=== PATIENT | female | born 2000 | race Hispanic/Latino ===

== ENCOUNTER 2024-09-10 00:12 | Observation (INO) | payer SELFPAY ==
[~2024-09-10] VITALS: Ht 149.9 cm; Wt 110.2 kg
[2024-09-10 00:41] LABS: APPEARANCE,URINE CLOUDY (CLEAR); BILIRUBIN,URINE NEGATIVE (NEGATIVE); COLOR,URINE YELLOW (YELLOW); GLUCOSE, URINE (UA) NEGATIVE (NEGATIVE); KETONES,URINE NEGATIVE (NEGATIVE); LEUKOCYTE ESTERASE ,URINE 500 Leu/uL (NEGATIVE); NITRATE,URINE NEGATIVE (NEGATIVE); OCCULT BLOOD,URINE MODERATE (NEGATIVE); PROTEIN,URINE 20 mg/dL (NEGATIVE)
[2024-09-10 00:42] LABS: ADD UA MICROSCOPIC YES
[2024-09-10 00:44] LABS: BACTERIA,URINE RARE /HPF (None Seen); MUCUS,URINE FEW LPF (None Seen); SQUAMOUS EPITHELIAL CELL,UR MANY /HPF (0-2); UNCLASSIFIED CRYSTAL 2 /HPF (None Seen); WBC,URINE 26-50 /HPF (0-1)
[2024-09-10 00:46] LABS: HCG,QUALITATIVE URINE NEGATIVE (NEGATIVE)
[2024-09-10 00:53] LABS: BASOPHILS # (AUTO) 0.04 K/uL (0.00-0.20); BASOPHILS % (AUTO) 0.3 % (0.0-5.0); EOSINOPHILS # (AUTO) 0.08 K/uL (0.00-0.70); EOSINOPHILS % (AUTO) 0.5 % (0.0-8.0); HEMATOCRIT 38.9 % (36-48); IMMATURE GRANULOCYTE ABSOLUTE 0.06 K/uL (0-1); LYMPHOCYTES # (AUTO) 1.9 K/uL (1.0-4.8); LYMPHOCYTES % (AUTO) 12.6 % (21.0-51.0); MEAN CORPUSCULAR HEMOGLOBIN 30.4 pg (27.0-33.0); MEAN CORPUSCULAR HGB CONC 33.4 g/dL (32.0-36.0); MEAN CORPUSCULAR VOLUME 91.1 fL (79-99); MONOCYTES # (AUTO) 0.5 K/uL (0.1-1.0); MONOCYTES % (AUTO) 3.5 % (3.0-13.0); NEUTROPHILS # (AUTO) 12.3 K/uL (1.8-7.7); NEUTROPHILS % (AUTO) 82.7 % (40.0-77.0); PLATELET COUNT (AUTO) 273 K/uL (130-400); RED BLOOD CELL COUNT(AUTO) 4.27 MIL/uL (4.00-5.50); RED CELL DISTRIBUTION WIDTH 12.6 % (11.0-15.5); WHITE BLOOD COUNT (AUTO) 14.9 K/uL (4.8-10.8)
[2024-09-10 01:07] LABS: CREATININE 0.6 mg/dL (0.5-1.0); POTASSIUM 3.6 mmol/L (3.5-5.1)
[2024-09-10 01:12] LABS: ALBUMIN 3.6 g/dL (3.5-5.0); BILIRUBIN,DIRECT 0.1 mg/dL (0.0-0.3); BILIRUBIN,TOTAL 0.4 mg/dL (0.2-1.0); TOTAL PROTEIN, SERUM 7.7 g/dL (6.0-8.3)
[2024-09-10] MEDS: morPHINE 4 MG SYG IVP ONE (01:38)
[2024-09-10] MEDS: 0.9%NACL 1000ML 1,000 ML IV ONE (01:38)
[2024-09-10] MEDS: ondanSETRON 4MG INJ IVP ONE (01:38)
[2024-09-10] MEDS: PANTOPrazole 40 MG/VIAL IVP ONE (01:38)
--- NOTE | 2024-09-10 02:16 | HMCIMG ---
EXAM: US Abdomen, Right Upper Quadrant. CLINICAL HISTORY: Epigastric and upper abdominal pain. TECHNIQUE: Right upper quadrant sonography performed with image documentation. COMPARISON: None provided. FINDINGS: The liver measures 15 cm craniocaudally. Mild fatty liver. Hepatopetal flow within the main portal vein with a peak systolic velocity of 17 cm/s. There are multiple mobile gallstones. Mildly thickened gallbladder wall measures up to 3 mm. The CBD is within normal limits and measures up to 3 mm in diameter. The visualized pancreas is within normal limits. The right kidney measures 10.5 x 5.4 0.8 cm and it is grossly unremarkable. Limited evaluation due to the patient's body habitus. IMPRESSION: Cholelithiasis with questionable acute cholecystitis. Mild fatty liver. /Tian
[2024-09-10] MEDS: cefTRIAXone 1G VIAL IVPB ONE (02:28)
--- NOTE | 2024-09-10 02:34 | ERN ---
ED Note History of Present Illness Stated Complaint: ABDOMINAL PAIN Chief Complaint: Abdominal Pain Time Seen by MD: 00:16 Time Seen by Midlevel: 00:16 Dictation: The patient is a 24-year-old female with no significant past medical history who presents to the emergency department with complaints of a epigastric abdominal pain that radiates to the right and left lower quadrant and radiates to the back onset on and off for two weeks but current episode started last night. Patient reports nausea but no vomiting. Denies any diarrhea or constipation. Denies any fevers. Allergies: Coded Allergies: No Known Drug Allergies (Unverified Allergy, Unknown, 09/10/24) Past Medical History Past Medical History: No Pertinent History Surgical History: None RN Note Reviewed/Agreed w/PFSH: Yes Review of System Dictation Constitutional: Negative for fever,chills, and weight loss Eyes: Negative for injury, pain,redness, and discharge ENT: Negative for injury,pain or swelling Cardiovascular: Negative for chest pain, palpitations, and edema Respiratory: Negative for shortness of breath, cough, and wheezing, Abdomen/GI: Negative for vomiting, diarrhea, and constipation positive for abdominal pain, nausea Back: Negative for injury and pain : Negative for injury, bleeding and discharge MS/Extremity: Negative for injury and deformity Skin: Negative for rash, and discoloration Neuro: Negative for headache, weakness, numbness, tingling, and seizure Psych: Negative for suicide ideation, homicidal ideation, and hallucinations Initial Vital Sign VS Vital Signs Date Time Temp Pulse Resp B/P (MAP) Pulse Ox O2 Delivery O2 Flow Rate FiO2 09/10/24 00:20 97.3 71 18 119/84 96 Room Air 0 09/10/24 01:00 21 Physical Exam Dictation Vital Signs reviewed General Appearance: Alert, oriented x 3, no acute distress, well developed, nourished. Head and Face: non-traumatic. Eyes: PERRL, pink conjunctivas, eyelid no trauma, anterior chamber with arcus se nilis. Ears: Pinnas intact and no signs of trauma or erythema ear canals clear and no discharge TM no erythema Nose: No discharge, no bleeding. Oropharynx: Mouth normal, tongue pink. pharynx clear,no erythema, tonsils no exudates, no abscesses noted, mucous membrane moist Neck: Supple, non-tender, no thyromegaly, no masses, no JVD, no bruits Breast:Deferred Chest:No tenderness, no crepitus, no paradoxical movement, no retractions Lungs:Clear, well-ventilated, symmetric, no rales, no wheezing, no rhonchi, no stridor, good breath sounds bilaterally Heart: Regular rate, regular rhythm, no murmur, no gallops Vascular: no peripheral edema, Abdomen: Soft, positive bowel sounds, nondistended, no guarding, Epigastric, right upper quadrant tenderness, no rebound, no masses no hepatomegaly, no splenomegaly, Dietirch's sign, no hernias. Rectal: Deferred Genital: Deferred Neurological: Normal speech, motor function intact, sensory function intact Musculoskeletal: Neck nontender, full range of motion, back nontender, full range of motion, Extremities: nontender, full range of motion Skin: Color pink, dry, no turgor, no rash, no lacerations, no abrasions, no contusions. Lymphatic: Deferred Results (Laboratory/Radiology) Laboratory/Radiology Laboratory Tests Test 09/10/24 00:35 09/10/24 00:46 Urine Color YELLOW (YELLOW) Urine Appearance CLOUDY (CLEAR) H Urine pH 6.0 (5.0-8.0) Urine Specific [place] 1.031 (1.001-1.031) Urine Protein 20 mg/dL (NEGATIVE) H Urine Glucose (UA) NEGATIVE mg/dL (NEGATIVE) Urine Ketones NEGATIVE mg/dL (NEGATIVE) Urine Occult Blood MODERATE (NEGATIVE) H Urine Nitrate NEGATIVE (NEGATIVE) Urine Bilirubin NEGATIVE mg/dL (NEGATIVE) Urine Urobilinogen 2.0 mg/dL (0.2-1.0) H Urine Leukocyte Esterase 500 [place]ira/uL (NEGATIVE) H Urine RBC 11-25 /HPF (0-1) H Urine WBC 26-50 /HPF (0-1) H Urine Squamous Epithelial Cells MANY /HPF (0-2) Urine Other Crystals (Auto) 2 /HPF (None Seen) Urine Bacteria RARE /HPF (None Seen) Urine HCG, Qualitative NEGATIVE (NEGATIVE) White Blood Count 14.9 K/uL (4.8-10.8) H Red Blood Count 4.27 MIL/uL (4.00-5.50) Hemoglobin 13.0 g/dL (12.0-16.0) Hematocrit 38.9 % (36-48) Mean Corpuscular Volume 91.1 fL (79-99) Mean Corpuscular Hemoglobin 30.4 pg (27.0-33.0) Mean Corpuscular Hemoglobin Concent 33.4 g/dL (32.0-36.0) Red Cell Distribution Width 12.6 % (11.0-15.5) Platelet Count 273 K/uL (130-400) Mean Platelet Volume 10.0 fL (7.5-10.5) Immature Granulocyte % (Auto) 0.4 % (0-1) Neutrophils (%) (Auto) 82.7 % (40.0-77.0) H Lymphocytes (%) (Auto) 12.6 % (21.0-51.0) L Monocytes (%) (Auto) 3.5 % (3.0-13.0) Eosinophils (%) (Auto) 0.5 % (0.0-8.0) Basophils (%) (Auto) 0.3 % (0.0-5.0) Neutrophils # (Auto) 12.3 K/uL (1.8-7.7) H Lymphocytes # (Auto) 1.9 K/uL (1.0-4.8) Monocytes # (Auto) 0.5 K/uL (0.1-1.0) Eosinophils # (Auto) 0.08 K/uL (0.00-0.70) Basophils # (Auto) 0.04 K/uL (0.00-0.20) Absolute Immature Granulocyte (auto 0.06 K/uL (0-1) Nucleated Red Blood Cells 0.0 % (0.0-0.19) Sodium Level 140 mmol/L (136-145) Potassium Level 3.6 mmol/L (3.5-5.1) Chloride Level 104 mmol/L (101-111) Carbon Dioxide Level 28 mmol/L (21-32) Blood Urea Nitrogen 15 mg/dL (7-18) Creatinine 0.6 mg/dL (0.5-1.0) Glomerular Filtration Rate Calc 130 mL/min (>90) Random Glucose 138 mg/dL (70-105) H Total Calcium 8.9 mg/dL (8.5-10.1) Total Bilirubin 0.4 mg/dL (0.2-1.0) Direct Bilirubin 0.1 mg/dL (0.0-0.3) Aspartate Amino Transf (AST/SGOT) 43 U/L (10-37) H Alanine Aminotransferase (ALT/SGPT) 25 U/L (12-78) Alkaline Phosphatase 124 U/L (50-136) Total Protein 7.7 g/dL (6.0-8.3) Albumin 3.6 g/dL (3.5-5.0) Lipase 30 U/L (16-77) REASON: epigastric pain, upper pain ORDERING PHYSICIAN: DAV RINCON PROCEDURE: ABDRUQLTD - US ABDOMINAL RUQ\LTD EXAM: US Abdomen, Right Upper Quadrant. CLINICAL HISTORY: Epigastric and upper abdominal pain. TECHNIQUE: Right upper quadrant sonography performed with image documentation. COMPARISON: None provided. FINDINGS: The liver measures 15 cm craniocaudally. Mild fatty liver. Hepatopetal flow within the main portal vein with a peak systolic velocity of 17 cm/s. There are multiple mobile gallstones. Mildly thickened gallbladder wall measures up to 3 mm. The CBD is within normal limits and measures up to 3 mm in diameter. The visualized pancreas is within normal limits. The right kidney measures 10.5 x 5.4 0.8 cm and it is grossly unremarkable. Limited evaluation due to the patient's body habitus. IMPRESSION: Cholelithiasis with questionable acute cholecystitis. Mild fatty liver. /[place] Labs Reviewed?: Yes ED Course ED Course Orders Procedure Category Date Status Time Cbc With Differential LAB 09/10/24 Complete 00: ,Urine Test LAB 09/10/24 Complete : Urinalysis Profile LAB 09/10/24 Complete 00: 0.9%Nacl 1000ml (Ns PHA 09/10/24 Complete 1000ml) 00:30 Morphine 4mg Syg PHA 09/10/24 Complete (Morphine 4mg Syg) 00:30 Ondansetron 4mg Inj PHA 09/10/24 Complete (Zofran 4mg Inj) 00:30 Pantoprazole 40mg Inj PHA 09/10/24 Complete (Protonix 40mg Inj 00:30 Lipase LAB 09/10/24 Complete 00:27 Basic Metabolic Panel LAB 09/10/24 Complete 00:27 Hepatic Function Panel LAB 09/10/24 Complete 00:27 Culture Urine KATERINA 09/10/24 In Process 00:42 Us Abdominal Ruq\Ltd US 09/10/24 Resulted 00:59 Ceftriaxone 1g Vial PHA 09/10/24 Complete (Rocephine 1g Inj) 02:00 Current Medications Medications (Trade) Dose Ordered Sig/Anaya Route PRN Reason Start Time Stop Time Status Last Admin Dose Admin Ceftriaxone Sodium (ROCEphine 1G INJ) 1 gm ONCE ONCE IVPB 09/10/24 02:00 09/10/24 02:01 DC 09/10/24 02:28 Morphine Sulfate (morPHINE 4MG SYG) 4 mg ONCE ONCE IVP 09/10/24 00:30 09/10/24 00:40 DC 09/10/24 01:38 Ondansetron HCl (zoFRAN 4MG INJ) 4 mg ONCE ONCE IVP 09/10/24 00:30 09/10/24 00:40 DC 09/10/24 01:38 Pantoprazole Sodium (PROTonix 40MG INJ) 40 mg ONCE ONCE IVP 09/10/24 00:30 09/10/24 00:40 DC 09/10/24 01:38 Sodium Chloride 1,000 ml @ 0 mls/hr ONCE ONCE IV 09/10/24 00:30 09/10/24 00:40 DC 09/10/24 01:38 Vital Signs Date Time Temp Pulse Resp B/P (MAP) Pulse Ox O2 Delivery O2 Flow Rate FiO2 09/10/24 05:27 98.4 68 16 121/74 96 Room Air* 0 09/10/24 04:00 98.4 68 17 124/74 97 Room Air* 0 09/10/24 03:00 98.1 75 18 134/76 98 Room Air* 0 09/10/24 02:00 98.4 72 18 124/70 97 Room Air* 0 09/10/24 01:00 98.1 74 18 135/74 98 Room Air* 0 09/10/24 00:20 97.3 71 18 119/84 96 Room Air 0 Medical Decision Making MDM MDM: The patient is a 24-year-old female with no significant past medical history who presents to the emergency department with complaints of a epigastric abdominal pain that radiates to the right and left lower quadrant and radiates to the back onset on and off for two weeks but current episode started last night. Patient reports nausea but no vomiting. Denies any diarrhea or constipation. Denies any fevers. CBC showed leukocytosis, no anemia, chemistry showed no electrolyte imbalance, normal renal function, slightly elevated AST. Urinalysis positive for leukocyte esterase. Ultrasound showed cholelithiasis with questionable cholecystitis. Differential diagnosis: Cholelithiasis, cholecystitis, gastritis, electrolyte imbalance, dehydration Comorbidities: None Tests considered and not ordered secondary to shared decision making include: n one Previous outside records reviewed: none Risk of complication and/or morbidity or mortality of patient management: The patient meets criteria for admission. Need for emergency major/minor surgery: No There are no social concerns with this patient. I independently interpreted the tests I ordered (labs, urinalysis, etc.). I discussed the case with the hospitalist for admission. I discussed the case with the following specialists: none. Historian: [email or web address]. I independently interpreted imaging studies and EKGs that I ordered (US, CT, XR, EKG, etc.). External chart review: none. Medical management and examination interpretation discussions were had by me with other qualified healthcare professionals as indicated for the patient's care. 09/10/2024- She has a [facility] has accepted the patient for acute cholecystitis, sepsis and UTI. We will admit to medicine DX & DISP Disposition: Inpatient Departure Impression: Primary Impression: Acute cholecystitis Condition: Stable Referrals: SELF,REFERRAL (PCP) DAV RINCON Sep 10, 2024 02:34 FRANCISCO SHEA MD Sep 10, 2024 06:53
--- NOTE | 2024-09-10 06:33 | NUR ---
Clemente SOSA NOTIFIED--UNABLE TO CONTACT DR. ARGUETA AFTER NUMEROUS ATTEMPTS BY ER STAFF, ER PHYSICIAN AND HIGH SCHOOL DIRECTOR SINCE [id number]
[2024-09-10] MEDS ORDERED: 0.9%NACL 50ML IV SCH (07:30)
[2024-09-10] MEDS ORDERED: ketOROlac 15MG/ML VIAL (15MG/ML) IV PRN (07:30)
[2024-09-10] MEDS ORDERED: morPHINE 2 MG SYG IVP PRN (07:30)
[2024-09-10] MEDS ORDERED: acetaMINOPHEN 325 MG TAB PO PRN ×2 (07:30)
--- NOTE | 2024-09-10 07:32 | HP ---
[facility] HISTORY AND PHYSICAL Date of Service: Sep 10, 2024 Time of Service: 07:32 HISTORY OF PRESENT ILLNESS: [24-year-old female with no known past medical history presented to the emergency department with complaints of abdominal pain located in the upper qu adrant and epigastric area. Patient reported that it started around 10:30 p.m. last night and it became progressively worse hence she decided to come to the emergency department for further evaluation. Associated symptoms include nausea no vomiting no diarrhea no constipation. Patient has had issues of abdominal pain before but it was not this bad according to the patient. Ultrasound of the abdomen showed cholelithiasis with questionable acute cholecystitis. HIDA scan was done which was unremarkable for acute cholecystitis. Patient was referred to the hospitalist for further evaluation and management for which patient will be evaluated by General surgeon as well.] REVIEW OF SYSTEMS CONSTITUTIONAL: Denies fevers, chills, or night sweats. No unintentional weight loss reported. NEUROLOGICAL: Denies headache, amaurosis fugax, motor weakness, sensory deficit, vertigo/spinning sensation, gait abnormalities, or tremors. ENT: No hearing loss, otalgia, otorrhea, rhinitis, rhinorrhea, hoarseness, or sore throat. CARDIOVASCULAR: Denies any exertional angina, dyspnea on exertion, orthopnea, paroxysmal nocturnal dyspnea, palpitations, life-threatening arrhythmias, claudication. PULMONARY: Denies any shortness of breath, cough, phlegm/sputum, hemoptysis, pleuritic chest pain. SLEEP: Denies morning headaches, daytime somnolence or napping. Denies difficulty falling asleep, staying asleep, waking from sleep. Denies knowledge of snoring. GASTROINTESTINAL: Denies any type of dysphagia to either liquids or solids. Denies nausea, vomiting, pyrosis, early satiety, abdominal pain, diarrhea, constipation, or changes in stool consistency or caliber. Denies coffee-ground emesis, hematemesis, hematochezia, or melanotic stools. GENITOURINARY: Denies frequency, urgency, nocturia, hematuria or incontinence ( Storage/Irritative symptoms.) Low urinary stream, straining to void, urinary intermittency or hesitancy, splitting of the voiding stream, terminal dribbling. ENDOCRINOLOGIC: Denies polyuria, polydipsia, polyphagia or heat/cold intolerances. HEMATOLOGIC: Denies thrombophilia/previous clots, or coagulopathy/bleeding disorders. ONCOLOGIC: Denies personal history of malignancy. DERMATOLOGIC: Denies rashes or pruritus. PSYCHIATRIC: Denies any suicidal or homicidal ideation. Denies hallucinations. PAST MEDICAL HISTORY: [Morbid obesity with BMI of 49.1 kg/M2 ] PAST SURGICAL HISTORY: [Left foot surgery ] PAST SOCIAL HISTORY: [Patient is on home with her parents she denies tobacco, alcohol or illicit drug use ] FAMILY HISTORY: [Mother has diabetes mellitus type2 ] Coded Allergies: No Known Drug Allergies (Unverified Allergy, Unknown, 09/10/24) PHYSICAL EXAM GENERAL APPEARANCE: The patient is awake, alert, and oriented, in no acute cardiopulmonary distress. NEUROLOGICAL: Cranial nerves II-XII grossly intact. Motor is 5/5 in bilateral upper and lower extremities proximal to distal. No sensory deficits. HEENT: Face is symmetric. Pupils are equal and reactive. Extraocular movements are intact. NECK: Supple. No JVD. No thyromegaly. No submental, submandibular, pre- /postauricular, occipital or supraclavicular lymphadenopathy. CHEST: Normal chest expansion. No Telemetry. LUNGS: Absence of any rales, rhonchi or any wheezing. CARDIOVASCULAR: Regular. S1 and S2 normal. No appreciable rubs, murmurs or gallops. ABDOMEN: Soft, nontender, and nondistended. There is no rebound, voluntary guarding, or rigidity. : Deferred. No Perla. EXTREMITIES: Non-edematous and not cyanotic. No clubbing. Good capillary refill. SKIN: No skin breakdown. Vital Sign (Last 24 Hours) 09/10/24 05:27 Temp 98.4 Pulse 68 Resp 16 B/P (MAP) 121/74 Pulse Ox 96 O2 Delivery Room Air* O2 Flow Rate 0 FiO2 21 LABS: Laboratory: Test 09/10/24 00:46 09/10/24 00:35 Range/Units White Blood Count 14.9 H 4.8-10.8 K/uL Red Blood Count 4.27 4.00-5.50 MIL/uL Hemoglobin 13.0 12.0-16.0 g/dL Hematocrit 38.9 36-48 % Mean Corpuscular Volume 91.1 79-99 fL Mean Corpuscular Hemoglobin 30.4 27.0-33.0 pg Mean Corpuscular Hemoglobin Concent 33.4 32.0-36.0 g/dL Red Cell Distribution Width 12.6 11.0-15.5 % Platelet Count 273 130-400 K/uL Mean Platelet Volume 10.0 7.5-10.5 fL Immature Granulocyte % (Auto) 0.4 0-1 % Neutrophils (%) (Auto) 82.7 H 40.0-77.0 % Lymphocytes (%) (Auto) 12.6 L 21.0-51.0 % Monocytes (%) (Auto) 3.5 3.0-13.0 % Eosinophils (%) (Auto) 0.5 0.0-8.0 % Basophils (%) (Auto) 0.3 0.0-5.0 % Neutrophils # (Auto) 12.3 H 1.8-7.7 K/uL Lymphocytes # (Auto) 1.9 1.0-4.8 K/uL Monocytes # (Auto) 0.5 0.1-1.0 K/uL Eosinophils # (Auto) 0.08 0.00-0.70 K/uL Basophils # (Auto) 0.04 0.00-0.20 K/uL Absolute Immature Granulocyte (auto 0.06 0-1 K/uL Nucleated Red Blood Cells 0.0 0.0-0.19 % Sodium Level 140 136-145 mmol/L Potassium Level 3.6 3.5-5.1 mmol/L Chloride Level 104 101-111 mmol/L Carbon Dioxide Level 28 21-32 mmol/L Blood Urea Nitrogen 15 7-18 mg/dL Creatinine 0.6 0.5-1.0 mg/dL Glomerular Filtration Rate Calc 130 >90 mL/min Random Glucose 138 H 70-105 mg/dL Total Calcium 8.9 8.5-10.1 mg/dL Total Bilirubin 0.4 0.2-1.0 mg/dL Direct Bilirubin 0.1 0.0-0.3 mg/dL Aspartate Amino Transf (AST/SGOT) 43 H 10-37 U/L Alanine Aminotransferase (ALT/SGPT) 25 12-78 U/L Alkaline Phosphatase 124 50-136 U/L Total Protein 7.7 6.0-8.3 g/dL Albumin 3.6 3.5-5.0 g/dL Lipase 30 16-77 U/L Urine Color YELLOW YELLOW Urine Appearance CLOUDY H CLEAR Urine pH 6.0 5.0-8.0 Urine Specific [place] 1.031 1.001-1.031 Urine Protein 20 H NEGATIVE mg/dL Urine Glucose (UA) NEGATIVE NEGATIVE mg/dL Urine Ketones NEGATIVE NEGATIVE mg/dL Urine Occult Blood MODERATE H NEGATIVE Urine Nitrate NEGATIVE NEGATIVE Urine Bilirubin NEGATIVE NEGATIVE mg/dL Urine Urobilinogen 2.0 H 0.2-1.0 mg/dL Urine Leukocyte Esterase 500 H NEGATIVE [place]/uL Urine RBC 11-25 H 0-1 /HPF Urine WBC 26-50 H 0-1 /HPF Urine Squamous Epithelial Cells MANY 0-2 /HPF Urine Other Crystals (Auto) 2 None Seen /HPF Urine Bacteria RARE None Seen /HPF Urine HCG, Qualitative NEGATIVE NEGATIVE DIAGNOSTICS / RADIOLOGY: [ [address] [address] IMAGING REPORT Signed PATIENT: DICKSON BENAVIDEZ MR#: [id number] : 2000 SEX: F AGE: 24 LOCATION: [facility] ORDER 0815 STATUS: ADM IN REPORT#: [id number] SERVICE 1000 REASON: r/o cholecystitis ORDERING PHYSICIAN: ROHIT KU MD PROCEDURE: HIDAWO - NM HIDA WO EF/CCK Examination Hepatobiliary study History r/o cholecystitis (Hx) / r/o cholecystitis, Statics (DICOM Hx) (DICOM Hx) Technique Tc-99m choletech were administered intravenously followed by acquisition of planar images of the abdomen. Findings Following administration of radiotracer, there is prompt appearance of normal hepatic contours, followed by appearance of activity in unremarkable appearing bile ducts. There is prompt filling of the gallbladder. The study is negative for acute cholecystitis. IMPRESSION: Negative HIDA study. No evidence of cholecystitis. /[place] DICTATED BY: NERIS MOHR Jr., MD DATE: 09/10/241219 ELECTRONICALLY SIGNED BY: NERIS MOHR Jr., MD DATE: 09/10/241219 [address] [place] [address] IMAGING REPORT Signed PATIENT: DICKSON BENAVIDEZ MR#: [id number] : 2000 SEX: F AGE: 24 LOCATION: [facility] ORDER STATUS: ADM IN REPORT#: [id number] SERVICE 1000 REASON: r/o cholecystitis ORDERING PHYSICIAN: ROHIT KU MD PROCEDURE: HIDAWO - NM HIDA WO EF/CCK Examination Hepatobiliary study History r/o cholecystitis (Hx) / r/o cholecystitis, Statics (DICOM Hx) (DICOM Hx) Technique Tc-99m choletech were administered intravenously followed by acquisition of planar images of the abdomen. Findings Following administration of radiotracer, there is prompt appearance of normal hepatic contours, followed by appearance of activity in unremarkable appearing bile ducts. There is prompt filling of the gallbladder. The study is negative for acute cholecystitis. IMPRESSION: Negative HIDA study. No evidence of cholecystitis. /[place] DICTATED BY: NERIS MOHR Jr., MD DATE: 09/10/241219 ELECTRONICALLY SIGNED BY: NERIS MOHR Jr., MD DATE: 09/10/241219 ] ASSESSMENT: [Intractable abdominal pain, POA Acute cholelithiasis without cholecystitis, POA Morbid obesity, POA ] PLAN: [ Admit to medical-surgical Patient will be kept NPO Continue with IV fluids Continue with IV antibiotics with Zosyn IV every8 hours We will consult general surgeon for further evaluation and recommendation GI and DVT prophylaxis We will repeat labs tomorrow Patient is a full code Case was discussed with Dr. Ku, above plan was formulated ADVANCED CARE PLANNING 1. Which of the following were discussed? Hospice Care - Yes / No Therapeutic options - Yes / No Advance Directives - Yes / No Other discussions - 2. Discussed with who? patient 3. Voluntary nature of this service was explained to the patient? Yes / No 4. Amount of time spent - __21 mins 5. Reviewed by Physician? (if this service was performed by NPP) Yes / No ] ATTESTATION BY PHYSICIAN I have seen and examined the patient. I reviewed the documentation, medical decision making, and treatment plan as noted by the mid-level provider above. I agree with the findings and plan of care. HARVEY BEE. [facility] Sep 10, 2024 07:32
[2024-09-10] MEDS: ZOSYN 3.375GM +NS 50ML IVPB SCH (08:16)
[2024-09-10] MEDS: 0.9%NACL 1000ML 1,000 ML IV SCH (08:16)
[2024-09-10] MEDS: FAMOTIDINE 20MG VIAL IV SCH (09:00)
--- NOTE | 2024-09-10 09:20 | NUR ---
AT HIDA SCAN
--- NOTE | 2024-09-10 11:20 | HMCIMG ---
Examination Hepatobiliary study History r/o cholecystitis (Hx) / r/o cholecystitis, Statics (DICOM Hx) (DICOM Hx) Technique Tc-99m choletech were administered intravenously followed by acquisition of planar images of the abdomen. Findings Following administration of radiotracer, there is prompt appearance of normal hepatic contours, followed by appearance of activity in unremarkable appearing bile ducts. There is prompt filling of the gallbladder. The study is negative for acute cholecystitis. IMPRESSION: Negative HIDA study. No evidence of cholecystitis. /[place]
--- NOTE | 2024-09-10 11:23 | NUR ---
REPORT GIVEN TO LIDA
--- NOTE | 2024-09-10 11:30 | NUR ---
PATIENT ARRIVED TO UNIT. ALERT AND ORIENTED X 4. IV TO RIGHT ARM. MOTHER AT BEDSIDE. NO COMPLAINTS OF PAIN OR DISCOMFORT AT THIS TIME.
[2024-09-10 11:45] VITALS: O2SAT 96
[2024-09-10 12:00] VITALS: BP 134/93; PULSE 83; RESP 17; TEMP 97.8
[2024-09-10 15:56] VITALS: BP 105/56; PULSE 64; RESP 17; TEMP 97.9
--- NOTE | 2024-09-10 16:17 | NUR ---
DCP: INITIAL ASSESSMENT Patient lives with mother, Adelia Wilks. She has no home services or DME. Patient is able to complete ADLs independently but does not drive. Family assists with transportation. Patient has no PCP. Pharmacy is [facility] in [place]. Patient voiced no safety concerns regarding returning home and states she has no difficulty with housing or buying food. DCP is home. Patient has no insurance or benefits. Patient was provided with community resources for post hospitalization follow up. Patient was also provided with Good RX card for prescriptions and educated on [facility] $4 medication program and [employer] $5 medication program. Patient is being assisted by [facility] Eligibility Specialists for financial matters. Addendum: 09/10/24 at 1625 by JENNIFER DRISCOLL Amended: Links added.
--- NOTE | 2024-09-10 18:16 | PN ---
Patient remains with minimal tenderness. Vital signs stable. HIDA scan was reported as negative for acute cholecystitis. We will start clear liquids and if patient tolerates she could advance and recommend to have gallbladder removed electively Vitals/Labs Vital Signs Date Time Temp Pulse Resp B/P (MAP) Pulse Ox O2 Delivery O2 Flow Rate FiO2 09/10/24 15:56 97.9 64 17 105/56 95 Room Air 09/10/24 11:45 0 21 Laboratory Tests 09/10/24 00:46 ELAINE ARGUETA MD Sep 10, 2024 18:16
[2024-09-10 19:00] VITALS: BP 132/69; PULSE 75; RESP 20; TEMP 98.1
[2024-09-10 20:00] VITALS: O2SAT 96
[2024-09-11] VITALS: BP 134/84; PULSE 83; RESP 20; TEMP 98.6
[2024-09-11 04:54] VITALS: BP 130/77; PULSE 72; RESP 20; TEMP 98
[2024-09-11 05:18] LABS: BASOPHILS # (AUTO) 0.04 K/uL (0.00-0.20); BASOPHILS % (AUTO) 0.6 % (0.0-5.0); EOSINOPHILS # (AUTO) 0.09 K/uL (0.00-0.70); EOSINOPHILS % (AUTO) 1.3 % (0.0-8.0); HEMATOCRIT 35.3 % (36-48); IMMATURE GRANULOCYTE ABSOLUTE 0.02 K/uL (0-1); LYMPHOCYTES # (AUTO) 2.4 K/uL (1.0-4.8); MEAN CORPUSCULAR HGB CONC 33.1 g/dL (32.0-36.0); MEAN CORPUSCULAR VOLUME 90.5 fL (79-99); MONOCYTES # (AUTO) 0.4 K/uL (0.1-1.0); NEUTROPHILS # (AUTO) 4.1 K/uL (1.8-7.7); NEUTROPHILS % (AUTO) 58.8 % (40.0-77.0); PLATELET COUNT (AUTO) 249 K/uL (130-400); RED CELL DISTRIBUTION WIDTH 12.7 % (11.0-15.5); WHITE BLOOD COUNT (AUTO) 6.9 K/uL (4.8-10.8)
[2024-09-11 05:38] LABS: ALBUMIN 3.1 g/dL (3.5-5.0); BILIRUBIN,DIRECT 0.1 mg/dL (0.0-0.3); BILIRUBIN,TOTAL 0.6 mg/dL (0.2-1.0); CREATININE 0.6 mg/dL (0.5-1.0); POTASSIUM 3.4 mmol/L (3.5-5.1); TOTAL PROTEIN, SERUM 6.8 g/dL (6.0-8.3)
[2024-09-11 07:44] VITALS: BP 105/46; PULSE 68; RESP 18; TEMP 98.2
[2024-09-11 09:09] VITALS: O2SAT 95
[2024-09-11 11:38] VITALS: BP 103/43; PULSE 66; RESP 18; TEMP 98
[2024-09-11] MEDS ORDERED: CEPH500C2 PO (13:55)
--- NOTE | 2024-09-11 14:16 | DS ---
Discharge Summary Hospital Course Summary: 24-year-old female with no known past medical history presented to the emergency department with complaints of abdominal pain located in the upper quadrant and epigastric area on 09.10.24. Patient reported that it started around 10:30 p.m. last night and it became progressively worse hence she decided to come to the emergency department for further evaluation. Associated symptoms include nausea no vomiting no diarrhea no constipation. Patient has had issues of abdominal pain before but it was not this bad according to the patient. Ultrasound of the abdomen showed cholelithiasis with questionable acute cholecystitis. HIDA scan was unremarkable . She was admitted for further observation and evaluation of abdominal pain. Surgery was consulted and recommended no active interventions at this time. She is required to follow up surgery as outpatient for possible cholecystectomy .She was found to have uncomplicated cystitis and was treated with Zosyn. She states taht her symptoms have been resolved and is tolerating soft diet at the time of discharge , She is clinically stable at the time of discharge . Childcare Administrator(s): GENERAL SURGERY CONSULT - ELAINE ARGUETA MD [place] [address] [address] Patient remains with minimal tenderness. Vital signs stable. HIDA scan was reported as negative for acute cholecystitis. We will start clear liquids and if patient tolerates she could advance and recommend to have gallbladder removed electively Vitals/Labs Vital Signs Date Time Temp Pulse Resp B/P (MAP) Pulse Ox O2 Delivery O2 Flow Rate FiO2 09/10/24 15:56 97.9 64 17 105/56 95 Room Air 09/10/24 11:45 0 21 Laboratory Tests 09/10/24 00:46 ELAINE ARGUETA MD Sep 10, 2024 18:16 Electronically Signed by: ELAINE ARGUETA MD09/10/241815 Electronically Co-Signed by: Procedure(s): PROCEDURE: [id number] - US ABDOMINAL RUQ\LTD EXAM: US Abdomen, Right Upper Quadrant. CLINICAL HISTORY: Epigastric and upper abdominal pain. TECHNIQUE: Right upper quadrant sonography performed with image documentation. COMPARISON: None provided. FINDINGS: The liver measures 15 cm craniocaudally. Mild fatty liver. Hepatopetal flow within the main portal vein with a peak systolic velocity of 17 cm/s. There are multiple mobile gallstones. Mildly thickened gallbladder wall measures up to 3 mm. The CBD is within normal limits and measures up to 3 mm in diameter. The visualized pancreas is within normal limits. The right kidney measures 10.5 x 5.4 0.8 cm and it is grossly unremarkable. Limited evaluation due to the patient's body habitus. IMPRESSION: Cholelithiasis with questionable acute cholecystitis. PROCEDURE: HIDAWO - NM HIDA WO EF/CCK Examination Hepatobiliary study History r/o cholecystitis (Hx) / r/o cholecystitis, Statics (DICOM Hx) (DICOM Hx) Technique Tc-99m choletech were administered intravenously followed by acquisition of planar images of the abdomen. Findings Following administration of radiotracer, there is prompt appearance of normal hepatic contours, followed by appearance of activity in unremarkable appearing bile ducts. There is prompt filling of the gallbladder. The study is negative for acute cholecystitis. IMPRESSION: Negative HIDA study. No evidence of cholecystitis. /[place] DICTATED BY: NERIS MOHR Jr., MD DATE: 09/10/241219 ELECTRONICALLY SIGNED BY: NERIS MOHR Jr., MD DATE: 09/10/241219 Mild fatty liver. /[place] DICTATED BY: NERIS MOHR Jr., MD DATE: 09/10/24314 ELECTRONICALLY SIGNED BY: NERIS MOHR Jr., MD DATE: 09/10/24314 Assessment/Plan: DISCHARGE DIAGNOSIS : Intractable abdominal pain, POA secondary to symptomatic cholelithiasis Acute symptomatic cholelithiasis without cholecystitis, POA Acute uncomplicated cystitis , POA Morbid obesity, POA Hematuria , POA - most likely due to cystitis ASSESSMENT : Patient was initially kept NPO and diet was advanced as tolerated as per surgery recommendations Patient was treated with IV Fluids, IV Zosyn Surgery recommended out patient follow up for a possible elective procedure Patient is required to take antibiotics as directed Patient is required to follow up with primarycare doctor with in 2 to 3 days after discharge . Discharge Instructions: DATE OF ADMISSION: 09.10.24 DATE OF DISCHARGE: 6.30.25 DISPOSITION: HOME CONDITION: Medically stable CONSULTANTS: General surgery FOLLOW UP APPOINTMENTS: Follow up with your primary care doctor in 2 to 3 days . Follow up with Surgery as outpatient PROCEDURES: NA IMAGING: report attached to summary MICROBIOLOGY: report attached to summary HOME MEDICATIONS: see med rec NEW MEDICATIONS: See medication reconciliation EMERGENCY INSTRUCTIONS: The patient was instructed to present to the nearest Emergency department or call 911 once their symptoms will return or worsen. Home Medications: No Active Prescriptions or Reported Meds Time spent arranging discharge: 1-30 minutes ATTESTATION BY PHYSICIAN I have seen and examined the patient. I reviewed the documentation, medical decision making, and treatment plan as noted by the resident provider above. I agree with the findings and plan of care. XAVIER SCHULZ MD, MD Sep 11, 2024 14:16
[2024-09-11 15:57] VITALS: BP 114/57; PULSE 61; RESP 18; TEMP 98
--- NOTE | 2024-09-11 16:20 | NUR ---
DISCHARGE PERIPHERAL IV REMOVED DISCHARGE EDUCATION AND INSTRUCTIONS PROVIDED TO PATIENT AND FAMILY PATIENT AND FAMILY AWARE TO FOLLOW UP WITH PCP AND SURGEON AN OUTPATIENT PATIENT AND FAMILY AWARE OF NEW PRESCRIPTION AND TO BUSINESS OBJECTS NEW PRESCRIPTION AT PREFERRED PHARMACY ALL QUESTIONS ANSWERED.
== END 2024-09-11 16:25 | disposition home or self-care (01) ==
LOC: EDH 00:12 → EDHIP 00:13 → INTOOBSV 00:13 → 3DH 11:30
PROVIDERS: ADMIT Internal Medicine; ATTEND Internal Medicine
DX: K80.20 Calculus of gallbladder without cholecystitis without obstruction (principal); N30.91 Cystitis, unspecified with hematuria; E66.01 Morbid (severe) obesity due to excess calories; K76.0 Fatty (change of) liver, not elsewhere classified; R10.13 Epigastric pain; Z68.42 Body mass index [BMI] 45.0-49.9, adult; Z98.890 Other specified postprocedural states; Z79.899 Other long term (current) drug therapy
CPT/HCPCS: 96361; 96365; 96366 ×4; 96375; 96367; 99285; 80076 ×2; 80048 ×2; 83690; 85025 ×2; 87086; 81001; 81025; 36415 ×2; 78226; 76705; J3490 ×2; J7030 ×2; J0696; J2405; J2270; J2543 ×4; J2470; A9537; G0378 ×4

== ENCOUNTER 2024-10-20 22:15 | Emergency (ER) | payer SELFPAY ==
[~2024-10-20] VITALS: Ht 157.5 cm; Wt 129.9 kg
[~2024-10-20 22:15] MED LIST: CEPH500C2 PO
[2024-10-20 22:50] LABS: IMMATURE GRANULOCYTE ABSOLUTE 0.04 K/uL (0-1); NUCLEATED RED BLOOD CELLS 0.0 % (0.0-0.19); PLATELET COUNT (AUTO) 275 K/uL (130-400); RED BLOOD CELL COUNT(AUTO) 4.29 MIL/uL (4.00-5.50); RED CELL DISTRIBUTION WIDTH 12.6 % (11.0-15.5); WHITE BLOOD COUNT (AUTO) 13.6 K/uL (4.8-10.8)
[2024-10-20 23:06] LABS: CREATININE 0.5 mg/dL (0.5-1.0); GLOMERULAR FILTR. RATE CALC 136.0 mL/min (>90); GLUCOSE,RANDOM 108.0 mg/dL (70-105); SODIUM SERUM 143.0 mmol/L (136-145); UREA NITROGEN, BLOOD 14.0 mg/dL (7-18)
[2024-10-20] MEDS: FAMOTIDINE 20MG VIAL IV ONE (23:09)
[2024-10-20 23:10] LABS: ASPARTATE AMINOTRANSFERASE 49.0 U/L (10-37); TOTAL PROTEIN, SERUM 6.9 g/dL (6.0-8.3)
[2024-10-20 23:32] LABS: APPEARANCE,URINE CLOUDY (CLEAR); GLUCOSE, URINE (UA) NEGATIVE (NEGATIVE); LEUKOCYTE ESTERASE ,URINE 500 Leu/uL (NEGATIVE); NITRATE,URINE NEGATIVE (NEGATIVE); OCCULT BLOOD,URINE +- (TRACE) (NEGATIVE)
[2024-10-20 23:37] LABS: ADD UA MICROSCOPIC YES
[2024-10-20 23:39] LABS: SQUAMOUS EPITHELIAL CELL,UR MANY /HPF (0-2)
--- NOTE | 2024-10-21 01:10 | HMCIMG ---
EXAM: US Abdomen, Right Upper Quadrant. CLINICAL HISTORY: Rule out cholecystitis. TECHNIQUE: Right upper quadrant sonography performed with image documentation. COMPARISON: Ultrasound of the right upper quadrant. 09/10/2024. FINDINGS: LIVER: Within normal limits in size and with increased echogenicity. No mass. GALLBLADDER: The gallbladder is contracted with multiple calculi. Wall thickness measures 1 mm. COMMON BILE DUCT: No dilation. PANCREAS: The distal pancreas is obscured by bowel gas. The visualised portion of the pancreas appears within normal limits. RIGHT KIDNEY: Unremarkable. Normal renal contours. The right kidney measures 9.6 x 3.9 x 4.7 cm. No renal mass or calculus. No hydronephrosis. IMPRESSION: Limited evaluation as the patient was not NPO and with a large body habitus. Redemonstrated is cholelithiasis. No evidence of cholecystitis. Fatty liver. /Tian
[2024-10-21] MEDS ORDERED: FAMO-136 PO (02:09)
[2024-10-21] MEDS ORDERED: KETO10TA2 PO (02:09)
[2024-10-21] MEDS ORDERED: ONDA-243 PO (02:09)
--- NOTE | 2024-10-21 02:11 | ERN ---
General Chief Complaint: Abdominal Pain Stated Complaint: EPIGASTRIC PAIN Time Seen by MD: 22:17 Time Seen by Midlevel: 22:17 Source: patient History of Present Illness Initial Comments THE PATIENT IS A 24-YEAR-OLD MORBIDLY OBESE FEMALE PRESENTING TO THE EMERGENCY DEPARTMENT FOR EVALUATION OF RIGHT UPPER QUADRANT/MIDEPIGASTRIC ABDOMINAL PAIN THAT STARTED TODAY AFTER EATING. THE PATIENT REPORTS A SIMILAR EPISODE EARLIER THIS SWABBED FOR SHE WAS ADMITTED 90 FULL ABDOMINAL WORKUP THAT INCLUDES A HIDA SCAN THAT WAS UNREMARKABLE. PATIENT WAS DISCHARGED WITH OUTPATIENT FOLLOW UP. Allergies: Coded Allergies: No Known Drug Allergies (Unverified Allergy, Unknown, 09/10/24) Home Meds Active Scripts Cephalexin (Cephalexin) 500 Mg Capsule, 1 CAP PO BID for cystitis for 7 Days, #14 CAP 0 Refills Prov:XAVIER GUZMÁN MD 09/11/24 Past Medical History Past Medical History: Other Medical History Other: CHOLECYSTITS Past Surgical History: None Female( History) LMP: Sep 20, 2024 ROS Dictation CONSTITUTIONAL: NEGATIVE EXCEPT FOR HPI HEAD/FACE: NEGATIVE EXCEPT FOR HPI EENT: NEGATIVE EXCEPT FOR HPI RESPIRATORY: NEGATIVE EXCEPT FOR HPI GASTROINTESTINAL/ABDOMINAL: NEGATIVE EXCEPT FOR HPI GENITOURINARY: NEGATIVE EXCEPT FOR HPI MUSCULOSKELETAL: NEGATIVE EXCEPT FOR HPI INTEGUMENTARY: NEGATIVE EXCEPT FOR HPI NEUROLOGICAL/PSYCH: NEGATIVE EXCEPT FOR HPI HEMATOLOGIC/LYMPHATIC: NEGATIVE EXCEPT FOR HPI ALL SYSTEMS NEGATIVE, EXCEPT NOTED ABOVE. 13 POINT REVIEW OF SYSTEMS ASSESSED AND ALL NEGATIVE EXCEPT FOR ABOVE. Physical Exam Physical Exam Dictation VITAL SIGNS REVIEWED GENERAL APPEARANCE: ALERT, ORIENTED X 3, NO ACUTE DISTRESS, WELL DEVELOPED, NOURISHED. HEAD AND FACE: NON-TRAUMATIC. EYES: PERRL, PINK CONJUNCTIVAS, EYELID NO TRAUMA, ANTERIOR CHAMBER WITH ARCUS SENILIS. EARS: PINNAS INTACT AND NO SIGNS OF TRAUMA OR ERYTHEMA EAR CANALS CLEAR AND NO DISCHARGE TM NO ERYTHEMA NOSE: NO DISCHARGE, NO BLEEDING. OROPHARYNX: MOUTH NORMAL, TONGUE PINK, PHARYNX CLEAR,NO ERYTHEMA, TONSILS NO EXUDATES, NO ABSCESSES NOTED, MUCOUS MEMBRANE MOIST NECK: SUPPLE, NON-TENDER, NO THYROMEGALY, NO MASSES, NO JVD, NO BRUITS BREAST:DEFERRED CHEST:NO TENDERNESS, NO CREPITUS, NO PARADOXICAL MOVEMENT, NO RETRACTIONS LUNGS:CLEAR, WELL-VENTILATED, SYMMETRIC, NO RALES, NO WHEEZING, NO RHONCHI, NO STRIDOR, GOOD BREATH SOUNDS BILATERALLY HEART: REGULAR RATE, REGULAR RHYTHM, NO MURMUR, NO GALLOPS VASCULAR: NO PERIPHERAL EDEMA, ABDOMEN: SOFT, POSITIVE BOWEL SOUNDS, NONDISTENDED, NO GUARDING, RIGHT UPPER QUADRANT ABDOMINAL TENDERNESS, NO REBOUND, NO MASSES NO HEPATOMEGALY, NO SPLENOMEGALY, NO GARCIA'S SIGN, NO HERNIAS. RECTAL: DEFERRED GENITAL: DEFERRED NEUROLOGICAL: NORMAL SPEECH, MOTOR FUNCTION INTACT, SENSORY FUNCTION INTACT MUSCULOSKELETAL: NECK NONTENDER, FULL RANGE OF MOTION, BACK NONTENDER, FULL R CHIN OF MOTION, EXTREMITIES: NONTENDER, FULL RANGE OF MOTION SKIN: COLOR PINK, DRY, NO TURGOR, NO RASH, NO LACERATIONS, NO ABRASIONS, NO CONTUSIONS. LYMPHATIC: DEFERRED Results Laboratory and Microbiology Lab and Micro Result Laboratory Tests Test 10/20/24 22:42 10/20/24 23:04 White Blood Count 13.6 K/uL (4.8-10.8) H Red Blood Count 4.29 MIL/uL (4.00-5.50) Hemoglobin 12.9 g/dL (12.0-16.0) Hematocrit 38.7 % (36-48) Mean Corpuscular Volume 90.2 fL (79-99) Mean Corpuscular Hemoglobin 30.1 pg (27.0-33.0) Mean Corpuscular Hemoglobin Concent 33.3 g/dL (32.0-36.0) Red Cell Distribution Width 12.6 % (11.0-15.5) Platelet Count 275 K/uL (130-400) Mean Platelet Volume 10.2 fL (7.5-10.5) Immature Granulocyte % (Auto) 0.3 % (0-1) Neutrophils (%) (Auto) 79.9 % (40.0-77.0) H Lymphocytes (%) (Auto) 14.0 % (21.0-51.0) L Monocytes (%) (Auto) 4.9 % (3.0-13.0) Eosinophils (%) (Auto) 0.6 % (0.0-8.0) Basophils (%) (Auto) 0.3 % (0.0-5.0) Neutrophils # (Auto) 10.8 K/uL (1.8-7.7) H Lymphocytes # (Auto) 1.9 K/uL (1.0-4.8) Monocytes # (Auto) 0.7 K/uL (0.1-1.0) Eosinophils # (Auto) 0.08 K/uL (0.00-0.70) Basophils # (Auto) 0.04 K/uL (0.00-0.20) Absolute Immature Granulocyte (auto 0.04 K/uL (0-1) Nucleated Red Blood Cells 0.0 % (0.0-0.19) Sodium Level 143 mmol/L (136-145) Potassium Level 4.2 mmol/L (3.5-5.1) Chloride Level 107 mmol/L (101-111) Carbon Dioxide Level 31 mmol/L (21-32) Blood Urea Nitrogen 14 mg/dL (7-18) Creatinine 0.5 mg/dL (0.5-1.0) Glomerular Filtration Rate Calc 136 mL/min (>90) Random Glucose 108 mg/dL (70-105) H Total Calcium 8.7 mg/dL (8.5-10.1) Total Bilirubin 0.5 mg/dL (0.2-1.0) Aspartate Amino Transf (AST/SGOT) 49 U/L (10-37) H Alanine Aminotransferase (ALT/SGPT) 25 U/L (12-78) Alkaline Phosphatase 126 U/L (50-136) Total Protein 6.9 g/dL (6.0-8.3) Albumin 3.4 g/dL (3.5-5.0) L Lipase 29 U/L (16-77) Urine Color YELLOW (YELLOW) Urine Appearance CLOUDY (CLEAR) H Urine pH 5.5 (5.0-8.0) Urine Specific Busy 1.031 (1.001-1.031) Urine Protein 10 mg/dL (NEGATIVE) H Urine Glucose (UA) NEGATIVE mg/dL (NEGATIVE) Urine Ketones NEGATIVE mg/dL (NEGATIVE) Urine Occult Blood +- (TRACE) (NEGATIVE) H Urine Nitrate NEGATIVE (NEGATIVE) Urine Bilirubin NEGATIVE mg/dL (NEGATIVE) Urine Urobilinogen 0.2 mg/dL (0.2-1.0) Urine Leukocyte Esterase 500 [place]/uL (NEGATIVE) H Urine RBC 2-5 /HPF (0-1) H Urine WBC 11-25 /HPF (0-1) H Urine Squamous Epithelial Cells MANY /HPF (0-2) Urine Bacteria FEW /HPF (None Seen) Labs Reviewed?: Yes MDM MDM: DIFFERENTIAL DIAGNOSIS: PANCREATITIS, BILIARY COLIC, ACUTE CHOLECYSTITIS THERE ARE NO SOCIAL CONCERNS WITH THIS PATIENT. PRESCRIPTION DRUG MANAGEMENT PRESCRIPTIONS WILL INCLUDE: MEDICAL MANAGEMENT AND EXAMINATION INTERPRETATION DISCUSSIONS WERE HAD BY ME WITH OTHER QUALIFIED HEALTHCARE PROFESSIONALS INDICATED FOR THE PATIENT'S CARE. ED Course Orders Procedure Category Date Status Time Cbc With Differential LAB 10/20/24 Complete 22:35 Comprehensive LAB 10/20/24 Complete Metabolic Panel 22:35 Lipase LAB 10/20/24 Complete 22:35 Urinalysis Profile LAB 10/20/24 Complete 22:35 Us Abdominal Ruq\Ltd US 10/20/24 Resulted 22:35 Morphine 2mg Syg PHA 10/20/24 Complete (Morphine 2mg Syg) 23:00 Ondansetron 4mg Inj PHA 10/20/24 Complete (Zofran 4mg Inj) 23:00 Famotidine 20mg Vial PHA 10/20/24 Complete (Pepcid 20mg Vial) 23:00 Culture Urine KATERINA 10/20/24 In Process 23:37 Current Medications Medications (Trade) Dose Ordered Sig/Anaya Route PRN Reason Start Time Stop Time Status Last Admin Dose Admin Famotidine (Pepcid 20mg Vial) 20 mg ONCE ONCE IV 10/20/24 23:00 10/20/24 23:01 DC 10/20/24 23:09 Morphine Sulfate (morPHINE 2MG SYG) 2 mg ONCE ONCE IVP 10/20/24 23:00 10/20/24 23:01 DC 10/20/24 23:09 Ondansetron HCl (zoFRAN 4MG INJ) 4 mg ONCE ONCE IVP 10/20/24 23:00 10/20/24 23:01 DC 10/20/24 23:09 Vital Signs Date Time Temp Pulse Resp B/P (MAP) Pulse Ox O2 Delivery O2 Flow Rate FiO2 10/20/24 22:31 98.2 87 18 114/75 99 Room Air* 0 21 10/20/24 22:17 98.1 72 18 117/73 99 Room Air DX & DISP Disposition: Discharge Departure Impression: Primary Impression: Biliary colic Condition: Stable Scripts Famotidine (Pepcid) 20 Mg Tablet 1 TAB PO BID for 30 Days, #60 TAB 0 Refills Prov: SANJEEV KO 10/21/24 Ondansetron (Ondansetron Odt) 4 Mg Tab.rapdis 4 MG PO BID for 7 Days, #14 TAB Prov: SANJEEV KO 10/21/24 Ketorolac Tromethamine (Ketorolac Tromethamine) 10 Mg Tablet 1 TAB PO TID for pain for 5 Days, #15 TAB 0 Refills Prov: SANJEEV KO 10/21/24 Referrals: NONE (PCP) I have reviewed the case, and I agree with, Diagnosis and Plan I PERFORMED THE SUBSTANTIVE PORTION OF THE VISIT. I HAVE REVIEWED AND PERSONALLY MADE AND APPROVE THE MANAGEMENT PLAN THAT IS DOCUMENTED IN THE NOTE BY MYSELF OR THE HO. I ACKNOWLEDGE FOR RESPONSIBILITY FOR THE PATIENT'S MANAGEMENT PLAN. SANJEEV KO Oct 21, 2024 02:11
[2024-10-21 02:30] VITALS: BP 110/70; PULSE 79; RESP 18; TEMP 98; O2SAT 99
== END 2024-10-21 02:32 | disposition home or self-care (01) ==
LOC: EDH 22:15
DX: K80.50 Calculus of bile duct without cholangitis or cholecystitis without obstruction (principal)
CPT/HCPCS: 99285; 96374; 76705; 96375; 80053; 83690; 85025; 87086; 81001; 36415; J3490; J2270; J2405; 99284

== ENCOUNTER 2024-11-24 23:39 | Emergency (ER) | payer SELFPAY ==
[~2024-11-24] VITALS: Ht 149.9 cm; Wt 108.0 kg
[~2024-11-24 23:39] MED LIST changes: +FAMO-136 PO; +KETO10TA2 PO; +ONDA-243 PO
--- NOTE | 2024-11-24 23:43 | NUR ---
PT CARE ASSUMED AT THIS TIME
--- NOTE | 2024-11-24 23:48 | ERN ---
ED Note History of Present Illness Stated Complaint: EPIGASTRIC PAIN Chief Complaint: Abdominal Pain Time Seen by MD: 23:42 Dictation: This is a 24-year-old morbidly obese female who presented to the emergency room with complaints of abdominal pain mostly in the epigastric area and upper abdomen. This started today after dinner. She denied any nausea vomitings diarrhea. No history of any constipation. No fever chills or rigors. No other family members are sick. Her mother was at bedside She had similar presentation and inflammation of the gallbladder and she was diagnosed with a cholecystitis at the time. She was recommended to follow up with the surgeon however patient did not keep up the appointment Temperature 99.1 pulse 82 respirations 20 blood pressure 144/87 with a pulse oximetry of 98% on room air Allergies: Coded Allergies: No Known Drug Allergies (Unverified Allergy, Unknown, 09/10/24) Home Meds Active Scripts Ondansetron (Ondansetron Odt) 4 Mg Tab.rapdis, 4 MG PO Q6HPRN PRN for nausea, #16 TAB 0 Refills Prov:RUDY MONTESINOS MD 11/25/24 Nitrofurantoin Monohyd/M-Cryst (Macrobid 100 mg Capsule) 100 Mg Capsule, 1 CAP PO BID for 10 Days, #20 CAP 0 Refills Prov:RUDY MONTESINOS MD 11/25/24 Famotidine (Pepcid) 20 Mg Tablet, 1 TAB PO BID for 30 Days, #60 TAB 0 Refills Prov:SANJEEV KO 10/21/24 Ondansetron (Ondansetron Odt) 4 Mg Tab.rapdis, 4 MG PO BID for 7 Days, #14 TAB Prov:SANJEEV KO 10/21/24 Ketorolac Tromethamine (Ketorolac Tromethamine) 10 Mg Tablet, 1 TAB PO TID for pain for 5 Days, #15 TAB 0 Refills Prov:SANJEEV KO 10/21/24 Cephalexin (Cephalexin) 500 Mg Capsule, 1 CAP PO BID for cystitis for 7 Days, #14 CAP 0 Refills Prov:XAVIER GUZMÁN MD 09/11/24 Past Medical History Past Medical History: Other Additional Past Medical Hx: CHOLECYSTITS Surgical History: None Family History: Negative Social History: Negative RN Note Reviewed/Agreed w/PFSH: Yes Review of System Dictation Constitutional: Negative for fever,chills, and weight loss Eyes: Negative for injury, pain,redness, and discharge ENT: Negative for injury,pain or swelling Cardiovascular: Negative for chest pain, palpitations, and edema Respiratory: Negative for shortness of breath, cough, and wheezing, Abdomen/GI: Positive for epigastric and right upper quadrant abdominal pain, denied nausea, vomiting, diarrhea, and constipation Back: Negative for injury and pain : Negative for injury, bleeding and discharge MS/Extremity: Negative for injury and deformity Skin: Negative for rash, and discoloration Neuro: Negative for headache, weakness, numbness, tingling, and seizure Psych: Negative for suicide ideation, homicidal ideation, and hallucinations Initial Vital Sign VS Vital Signs Date Time Temp Pulse Resp B/P (MAP) Pulse Ox O2 Delivery O2 Flow Rate FiO2 11/24/24 23:41 99.1 82 20 144/87 98 Room Air 11/25/24 00:04 0 21 Physical Exam Dictation General: awake, alert, NAD very obese female Head/Face: Normocephalic, atraumatic Eyes: PERRL, EOMI, vision at baseline ENT: oral cavity clear, TMs clear, no signs of infection Neck: Trachea midline, supple, no nuchal rigidity Cardiovascular: RRR, normal S1/S2, No MRGs, no JVD Respiratory: CTAB, no respiratory distress, No rales or wheezes Abdomen: Soft, mild tenderness in the epigastrium, non-distended, normal bowel sounds, no guarding or rebound. Skin: Warm, dry, normal turgor, no rash MS/Extremity: Pulses equal, no cyanosis, neurovascular intact, FROM Neuro: COAx4, GCS 15, strength 5/5, CN 2-12 intact, normal cerebellar exam, normal gait, Psych: Normal behavior, mood, and affect normal Extremities-trace edema without any palpable cords, Homans sign is negative Results (Laboratory/Radiology) Laboratory/Radiology Laboratory Tests Test 11/24/24 00:00 11/24/24 23:46 Urine Opiates Screen NEGATIVE (NEGATIVE) Urine Barbiturates Screen NEGATIVE (NEGATIVE) Urine Phencyclidine Screen NEGATIVE (NEGATIVE) Urine Amphetamines Screen NEGATIVE (NEGATIVE) Urine Benzodiazepines Screen NEGATIVE (NEGATIVE) Urine Cocaine Screen NEGATIVE (NEGATIVE) Urine Marijuana (THC) Screen NEGATIVE (NEGATIVE) Urine Color YELLOW (YELLOW) Urine Appearance TURBID (CLEAR) Urine pH 5.5 (5.0-8.0) Urine Specific [place] 1.025 (1.001-1.031) Urine Protein 20 mg/dL (NEGATIVE) H Urine Glucose (UA) NEGATIVE mg/dL (NEGATIVE) Urine Ketones NEGATIVE mg/dL (NEGATIVE) Urine Occult Blood +- (TRACE) (NEGATIVE) H Urine Nitrate NEGATIVE (NEGATIVE) Urine Bilirubin NEGATIVE mg/dL (NEGATIVE) Urine Urobilinogen 0.2 mg/dL (0.2-1.0) Urine Leukocyte Esterase 500 [place]/uL (NEGATIVE) H Urine RBC 2-5 /HPF (0-1) H Urine WBC 26-50 /HPF (0-1) H Urine Squamous Epithelial Cells MANY /HPF (0-2) Urine Bacteria RARE /HPF (None Seen) Urine HCG, Qualitative NEGATIVE (NEGATIVE) Labs Reviewed?: Yes ED Course ED Course Orders Procedure Category Date Status Time ,Urine Test LAB 11/24/24 Complete 23:43 Urinalysis Profile LAB 11/24/24 Complete 23:43 Lidocaine Hcl 2% PHA 11/25/24 Complete Viscous (Lidocaine Hcl 00:00 Mag/Alum/Simeth 30ml PHA 11/25/24 Complete (Maalox Plus 30ml) 00:00 Dicyclomine Hcl PHA 11/25/24 Complete (Bentyl 10mg/5ml 00:00 Drug Screen Urine LAB 11/24/24 Complete 23:46 0.9% Nacl 500ml PHA 11/25/24 Complete Iv.Soln (Ns 500ml 00:30 Ondansetron 4mg Inj PHA 11/25/24 Complete (Zofran 4mg Inj) 00:30 Culture Urine KATERINA 11/25/24 Complete 00:20 Ceftriaxone 1g Vial PHA 11/25/24 Complete (Rocephine 1g Inj) 01:00 Ketorolac PHA 11/25/24 Complete Tromethamine 30mg/Ml 01:00 Ketorolac PHA 11/25/24 Complete Tromethamine 30mg/Ml 01:30 Current Medications Medications (Trade) Dose Ordered Sig/Anaya Route PRN Reason Start Time Stop Time Status Last Admin Dose Admin Al Hydroxide/Mg Hydroxide (MAALox PLUS 30ML) 30 ml ONCE ONCE PO 11/25/24 00:00 11/25/24 00:01 DC 11/25/24 00:11 Ceftriaxone Sodium (ROCEphine 1G INJ) 1 gm ONCE ONCE IVPB 11/25/24 01:00 11/25/24 01:01 DC 11/25/24 01:10 Dicyclomine HCl (Bentyl 10mg/5ml Syrup) 10 mg ONCE ONCE PO 11/25/24 00:00 11/25/24 00:01 DC 11/25/24 00:11 Ketorolac Tromethamine (toRADol) 30 mg ONCE ONCE IM 11/25/24 01:00 11/25/24 01:08 DC Ketorolac Tromethamine (toRADol) 30 mg ONCE ONCE IV 11/25/24 01:30 11/25/24 01:31 DC 11/25/24 01:10 Lidocaine HCl (Lidocaine HCl 2% Viscous) 10 ml ONCE ONCE PO 11/25/24 00:00 11/25/24 00:01 DC 11/25/24 00:11 Ondansetron HCl (zoFRAN 4MG INJ) 4 mg ONCE ONCE IVP 11/25/24 00:30 11/25/24 00:31 DC 11/25/24 00:59 Sodium Chloride 500 ml @ 0 mls/hr ONCE ONCE IV 11/25/24 00:30 11/25/24 00:31 DC 11/25/24 01:00 Vital Signs Date Time Temp Pulse Resp B/P (MAP) Pulse Ox O2 Delivery O2 Flow Rate FiO2 11/25/24 01:42 99.0 75 16 145/81 100 Room Air* 0 21 11/25/24 00:04 99.1 89 18 151/87 100 Room Air* 0 21 11/24/24 23:41 99.1 82 20 144/87 98 Room Air We will perform diagnostic labs, advanced imaging and administer medications according to the patient's complaint. Once the results are available, will review and personally interpreted the labs to rule out any acute life- threatening emergency the trach require immediate intervention and treatment. I will then re-evaluate the patient after treatment and diagnostic exams have return to determine whether the patient requires any further testing, can safely be discharged home or need further admission to hospital for additional treatment and evaluation. 12:13 a.m. labs requested which are still pending 12:30 a.m. urine test is negative urinalysis showed positive leuko esterase very high WBC count at 26-50. UDS is negative I had a long discussion with the patient and her mother about possibility of biliary colic and lab tests consistent with a UTI. Patient felt improved with the symptomatic treatment and I recommended continuing the antibiotics for now and to follow up with the surgeon for gallbladder evaluation. Medical Decision Making MDM Differential diagnosis: Rationale: Tests considered and ordered secondary to shared decision making include: Previous outside records reviewed: Old ER visits. Risk of complication and/or morbidity or mortality of patient management: None Medications-Per medication reconciliation Need for hospitalization: Patient does not meet criteria for hospitalization. Need for emergency major/minor surgery: No There are no social concerns with this patient. Prescription drug management Prescriptions will include symptomatic care Patient's prior external medical records from other ER visits were reviewed by me as indicated. Prior testing and results from previous visits were reviewed. Prior tests were taken into account with medical decision making and resource utilization, independent historian/historians were used to obtain complete medical history. I independently interpreted the test that were performed, results were reviewed by me and considered findings on radiology if ordered. Medical management and examination interpretation discussions were had by me with other qualified healthcare professionals as indicated for the patient's care. Problem List Problem List: (1) Biliary colic (2) UTI (urinary tract infection) (3) Morbid obesity with BMI of 45.0-49.9, adult DX & DISP Disposition: Discharge Departure Impression: Primary Impression: Biliary colic Additional Impressions: UTI (urinary tract infection), Morbid obesity with BMI of 45.0-49.9, adult Condition: Stable Scripts Ondansetron (Ondansetron Odt) 4 Mg Tab.rapdis 4 MG PO Q6HPRN PRN for nausea, #16 TAB 0 Refills Prov: RUDY MONTESINOS MD 11/25/24 Nitrofurantoin Monohyd/M-Cryst (Macrobid 100 mg Capsule) 100 Mg Capsule 1 CAP PO BID for 10 Days, #20 CAP 0 Refills Prov: RUDY MONTESINOS MD 11/25/24 Additional Instructions: Patient and the caregiver have been informed of all the diagnostic tests and the imaging conducted during the today's visit to the emergency room and has verbalized understanding of the results I have personally reviewed and interpreted all diagnostic exams performed here in the ER today as well as the vital signs documented by the nursing staff. The patient is now being discharged to home and should follow up with the primary care physician or the specialist as directed by the ER staff. Follow-up with primary care provider in 1 to 2 days. Take medications as dir ected here in the emergency room. Okay to continue home medications unless otherwise discussed during your visit in the emergency room today. Return to your nearest emergency room if symptoms worsen or if there is no improvement. Call 911 if you need immediate assistance. Take Tylenol or Motrin [id number] as needed and if no contraindications are present. Increase oral hydration. A wound culture or urine culture was ordered here in the emergency room department please follow-up with primary care provider and advise them to get repeat ports from our facility. If you had any Marcos wrap/splints that were applied here, please do not remove them until you see your primary care or specialty. Referrals: NONE (PCP) RUDY MONTESINOS MD Nov 24, 2024 23:48
[2024-11-25] MEDS: LIDOCAINE HCL 2% VISCOUS 15 ML UDCUP PO ONE (00:11)
[2024-11-25] MEDS: MAG/ALUM/SIMETH 30 ML UDCUP PO ONE (00:11)
[2024-11-25] MEDS: DICYCLOMINE HCL 10 MG/5 ML ML PO ONE (00:11)
[2024-11-25 00:18] LABS: APPEARANCE,URINE TURBID (CLEAR); GLUCOSE, URINE (UA) NEGATIVE (NEGATIVE); HCG,QUALITATIVE URINE NEGATIVE (NEGATIVE); LEUKOCYTE ESTERASE ,URINE 500 Leu/uL (NEGATIVE); NITRATE,URINE NEGATIVE (NEGATIVE); OCCULT BLOOD,URINE +- (TRACE) (NEGATIVE)
[2024-11-25 00:20] LABS: ADD UA MICROSCOPIC YES
[2024-11-25 00:25] LABS: SQUAMOUS EPITHELIAL CELL,UR MANY /HPF (0-2)
[2024-11-25] MEDS: 0.9% NACL 500ML IV.SOLN 500 ML IV ONE (01:00)
[2024-11-25] MEDS ORDERED: NITR100C4 PO (01:11)
[2024-11-25] MEDS ORDERED: ONDA-243 PO (01:11)
[2024-11-25 01:42] VITALS: BP 145/81; PULSE 75; RESP 16; TEMP 99; O2SAT 100
== END 2024-11-25 01:44 | disposition home or self-care (01) ==
LOC: EDH 23:39
DX: K80.50 Calculus of bile duct without cholangitis or cholecystitis without obstruction (principal); N39.0 Urinary tract infection, site not specified; E66.01 Morbid (severe) obesity due to excess calories; Z68.42 Body mass index [BMI] 45.0-49.9, adult
CPT/HCPCS: 99284; 80305; 87086; 81025; 81001; 96374; 96375; J1885; J7040; J0696; J2405

== ENCOUNTER 2025-01-09 04:34 | Inpatient (IN) | payer SELFPAY ==
[~2025-01-09] VITALS: Ht 149.9 cm; Wt 100.2 kg
--- NOTE | 2025-01-09 05:24 | ERN ---
General Chief Complaint: Abdominal Pain Stated Complaint: C/O EPIGASTRIC PAIN W/ N X V Time Seen by MD: 04:45 History of Present Illness Initial Comments 24-year-old female, obese, otherwise no medical history, presents for epigastric pain that radiates to her back into the right side. She reports she has a history of gallstones. She has had multiple attacks. Last event was about a month ago. She reports she dinner last night and was in her usual state of health. She woke up this morning around 2:00 a.m. with vomiting and pain. No fevers. No diarrhea. No other symptoms. Denies . Allergies: Coded Allergies: No Known Drug Allergies (Unverified Allergy, Unknown, 09/10/24) Home Meds No Active Prescriptions or Reported Meds Past Medical History Past Medical History: No Pertinent History Medical History Other: CHOLECYSTITS Past Surgical History: None Family History Family History: Negative Social History Social History: Negative Female( History) LMP: Dec 26, 2024 ROS Dictation CONSTITUTIONAL: No chills, no fever, no weakness, no diaphoresis, no malaise. HEAD/FACE: No signs of trauma. EENT: No eye pain, no blurred vision, no tearing, no double vision, no ear pain, no ear discharge, no nose pain, no nasal congestion, no throat pain, no throat swelling, no mouth pain. RESPIRATORY: No cough, no orthopnea, no SOB, no stridor, no wheezing. CARDIOVASCULAR: No chest pain, no edema, no palpitations, no syncope. GASTROINTESTINAL/ABDOMINAL: Epigastric pain, vomiting GENITOURINARY: No abnormal discharge, no dysuria, no frequent urination, no hematuria. No complaints of pain in the genitals. MUSCULOSKELETAL: No back pain, no gout, no joint pain, no joint swelling, no muscle pain, no muscle stiffness, no neck pain. INTEGUMENTARY: No change in color, no change in hair/nails, no dryness, no lesion, no lumps, no rash. NEUROLOGICAL/PSYCH: No anxiety, not depressed, no emotional problem, no headache, no numbness, no pre-existing deficit, no history of seizures, no tremors, no weakness. HEMATOLOGIC/LYMPHATIC: Not anemic, no history of blood clots, no apparent bleeding, no bruising, glands not swollen. All Systems Negative, Except as Noted. Physical Exam Physical Exam Dictation VITAL SIGNS: Reviewed. GENERAL APPEARANCE: Alert, oriented x3, no acute distress, obese. HEAD AND FACE: Non-traumatic. EYES: PERRL, pink conjunctivas, eyelid no trauma, anterior chamber clear. EARS: Pinnas intact and no signs of trauma or erythema. Ear canals clear and no discharge. TMs no erythema. NOSE: No discharge, no bleeding. OROPHARYNX: Mouth normal, teeth no caries, tongue pink. Pharynx clear, no erythema. Tonsils no exudates, no abscesses noted. Mucous membrane moist. NECK: Supple, non-tender, no thyromegaly, no masses, no JVD, no bruits. BREAST: Deferred. CHEST: No tenderness, no crepitus, no paradoxical movement, no retractions. LUNGS: Clear, well-ventilated, symmetric, no rales, no wheezing, no rhonchi, no stridor, good breath sounds bilaterally. HEART: Regular rate, regular rhythm, no murmur, no gallops. VASCULAR: No peripheral edema. ABDOMEN: Soft, positive bowel sounds, nondistended, no guarding, nontender, no rebound, no masses no hepatomegaly, no splenomegaly, no Dietrich's sign, no hernias. RECTAL: Deferred. GENITAL: Deferred. NEUROLOGICAL: Normal speech, gross motor function intact, gross sensory function intact. MUSCULOSKELETAL: Neck nontender, full range of motion, back nontender, full range of motion. EXTREMITIES: Nontender, full range of motion. SKIN: Color pink, dry, no turgor, no rash, no lacerations, no abrasions, no contusions. LYMPHATICS: Deferred. Results Laboratory and Microbiology Lab and Micro Result [facility] CC: Epigastric /abdominal pain beginning earlier tonight Historian: Patient Comorbidities: Obesity Limitations by social determinants of health: None Differential diagnosis: Biliary disease, gastritis, GERD, pancreatitis, other Vital signs: Stable, remained stable here in the ER Labs show no leukocytosis or anemia. Chemistry panel is unremarkable. Liver enzymes stable. urinalysis shows occult blood otherwise unremarkable. Right upper quadrant ultrasound shows mobile stones, normal wall, normal CBD, no free fluid, no signs of cholecystitis. Lipase comes back elevated Seven hundred seventy-three. Consistent with pancreatitis. I suspect biliary in nature. Alcohol level added. Triglycerides added. Patient received IV fluids, Tylenol, IV Toradol, IV morphine with the multiple re-evaluations, IV Zofran, and a GI cocktail here in the ER. on re-evaluation patient is still uncomfortable due to pain. We will admit for pancreatitis further observation monitoring. ED Course Vital Signs Date Time Temp Pulse Resp B/P (MAP) Pulse Ox O2 Delivery O2 Flow Rate FiO2 01/09/25 04:35 97.3 62 20 113/56 99 Room Air DX & DISP Disposition: Inpatient Departure Impression: Primary Impression: Biliary colic Additional Impression: Biliary acute pancreatitis Condition: Stable Scripts No Active Prescriptions or Reported Meds Referrals: NONE (PCP) MARÍA ELENA HAMLIN DO Jan 09, 2025 05:24
[2025-01-09 05:27] LABS: IMMATURE GRANULOCYTE ABSOLUTE 0.02 K/uL (0-1); NUCLEATED RED BLOOD CELLS 0.0 % (0.0-0.19); PLATELET COUNT (AUTO) 238 K/uL (130-400); RED BLOOD CELL COUNT(AUTO) 4.04 MIL/uL (4.00-5.50); RED CELL DISTRIBUTION WIDTH 12.9 % (11.0-15.5); WHITE BLOOD COUNT (AUTO) 9.8 K/uL (4.8-10.8)
[2025-01-09] MEDS: DICYCLOMINE HCL 10 MG/5 ML ML PO ONE (05:28)
[2025-01-09] MEDS: LACTATED RINGERS 1000ML 1,000 ML IV ONE (05:28)
[2025-01-09] MEDS: MAG/ALUM/SIMETH 30 ML UDCUP PO ONE (05:28)
[2025-01-09 05:31] LABS: ADD UA MICROSCOPIC YES; APPEARANCE,URINE CLOUDY (CLEAR); GLUCOSE, URINE (UA) NEGATIVE (NEGATIVE); LEUKOCYTE ESTERASE ,URINE 25 Leu/uL (NEGATIVE); NITRATE,URINE NEGATIVE (NEGATIVE); OCCULT BLOOD,URINE +- (TRACE) (NEGATIVE)
[2025-01-09 05:33] LABS: HCG,QUALITATIVE URINE NEGATIVE (NEGATIVE)
[2025-01-09 05:37] LABS: SQUAMOUS EPITHELIAL CELL,UR MANY /HPF (0-2)
[2025-01-09 05:44] LABS: CREATININE 0.6 mg/dL (0.5-1.0); GLOMERULAR FILTR. RATE CALC 130.0 mL/min (>90); GLUCOSE,RANDOM 120.0 mg/dL (70-105); SODIUM SERUM 143.0 mmol/L (136-145); UREA NITROGEN, BLOOD 10.0 mg/dL (7-18)
[2025-01-09 05:48] LABS: ASPARTATE AMINOTRANSFERASE 47.0 U/L (10-37); TOTAL PROTEIN, SERUM 6.8 g/dL (6.0-8.3)
--- NOTE | 2025-01-09 06:31 | HMCIMG ---
EXAM: US Abdomen, Right Upper Quadrant. CLINICAL HISTORY: Adominal Pain TECHNIQUE: Right upper quadrant sonography performed with image documentation. COMPARISON: [facility] scan dated 12/10/2024. CT abdomen and pelvis dated 12/08/2024. FINDINGS: LIVER: Within normal limits in size (15.2 cm) and shows raised echogenicity. No mass. GALLBLADDER: The gallbladder appears normal. No gallbladder wall thickening (0.3 cm) seen. Mobile calculi seen. COMMON BILE DUCT: Within normal limits in size (0.4 cm). PANCREAS: The visualized portion of the pancreas appears within normal limits. RIGHT KIDNEY: Unremarkable (10.6 x 4.4 x 4.1 cm). Normal renal contours. No renal mass or calculus. No hydronephrosis. IMPRESSION: Cholelithiasis. No evidence of cholecystitis. Hepatic steatosis. /Tian
--- NOTE | 2025-01-09 06:45 | HP ---
[facility] HISTORY AND PHYSICAL Date of Service: Jan 09, 2025 Time of Service: 06:40 HISTORY OF PRESENT ILLNESS: [ ] admission date: 01/09/25 PCP: self referral CC: abd pain This is a 24-year-old female presents in ED with chief complaints of abdominal pain. Onset started to 30 this morning location epigastric, duration constant radiates to mid back to right upper shoulder. Character is described as pressure and burning. Pain on arrival was 10/10. Alleviating factors none, symptoms are aggravated with p.o. intake. Associated symptoms nausea and vomiting. ER workup was consistent with acute pancreatitis. Patient was rece ntly hospitalized a month ago for similar symptoms patient has a history of chronic Cholelithiasis. HIDA scan was done on that admission no acute cholecystitis noted on that admission she is now here with acute pancreatitis. We will get a MRCP possible ERCP GI has been consulted. Labs reviewed unremarkable no leukocytosis. Lipase 773 triglycerides 116 albumin 3.2. Patient is seen in ED 18 patient appears in no distress patient was given pain medication reports pain 3/10. REVIEW OF SYSTEMS A 12 point ROS obtained all relevant positive documented otherwise ROS negative PAST MEDICAL HISTORY: [ ] Obesity chronic Cholelithiasis PAST SURGICAL HISTORY: [ ] Negative PAST SOCIAL HISTORY: [ ] Denies smoking tobacco products and alcohol use lives with parents FAMILY HISTORY: [ ] noncontributory Coded Allergies: No Known Drug Allergies (Unverified Allergy, Unknown, 09/10/24) PHYSICAL EXAM GENERAL APPEARANCE: The patient is awake, alert, and oriented, in no acute cardiopulmonary distress. NEUROLOGICAL: Cranial nerves II-XII grossly intact. Motor is 5/5 in bilateral upper and lower extremities proximal to distal. No sensory deficits. HEENT: Face is symmetric. Pupils are equal and reactive. Extraocular movements are intact. NECK: Supple. No JVD. No thyromegaly. No submental, submandibular, pre- /postauricular, occipital or supraclavicular lymphadenopathy. CHEST: Normal chest expansion. No Telemetry. LUNGS: Absence of any rales, rhonchi or any wheezing. CARDIOVASCULAR: Regular. S1 and S2 normal. No appreciable rubs, murmurs or gallops. ABDOMEN: Soft, nontender, and nondistended. There is no rebound, voluntary guarding, or rigidity. : Deferred. No Perla. EXTREMITIES: Non-edematous and not cyanotic. No clubbing. Good capillary refill. SKIN: No skin breakdown. Vital Sign (Last 24 Hours) 01/09/25 04:51 Temp 97.9 Pulse 64 Resp 18 B/P (MAP) 110/43 Pulse Ox 98 O2 Delivery Room Air* O2 Flow Rate 0 FiO2 21 LABS: Laboratory: Test 01/09/25 05:23 01/09/25 05:20 Range/Units Urine Color YELLOW YELLOW Urine Appearance CLOUDY H CLEAR Urine pH 5.0 5.0-8.0 Urine Specific [place] 1.021 1.001-1.031 Urine Protein NEGATIVE NEGATIVE mg/dL Urine Glucose (UA) NEGATIVE NEGATIVE mg/dL Urine Ketones NEGATIVE NEGATIVE mg/dL Urine Occult Blood +- (TRACE) H NEGATIVE Urine Nitrate NEGATIVE NEGATIVE Urine Bilirubin NEGATIVE NEGATIVE mg/dL Urine Urobilinogen 0.2 0.2-1.0 mg/dL Urine Leukocyte Esterase 25 H NEGATIVE [place]ira/uL Urine RBC 2-5 H 0-1 /HPF Urine WBC 2-5 H 0-1 /HPF Urine Squamous Epithelial Cells MANY 0-2 /HPF Urine Bacteria RARE None Seen /HPF Urine HCG, Qualitative NEGATIVE NEGATIVE White Blood Count 9.8 4.8-10.8 K/uL Red Blood Count 4.04 4.00-5.50 MIL/uL Hemoglobin 12.4 12.0-16.0 g/dL Hematocrit 35.7 L 36-48 % Mean Corpuscular Volume 88.4 79-99 fL Mean Corpuscular Hemoglobin 30.7 27.0-33.0 pg Mean Corpuscular Hemoglobin Concent 34.7 32.0-36.0 g/dL Red Cell Distribution Width 12.9 11.0-15.5 % Platelet Count 238 130-400 K/uL Mean Platelet Volume 10.4 7.5-10.5 fL Immature Granulocyte % (Auto) 0.2 0-1 % Neutrophils (%) (Auto) 73.2 40.0-77.0 % Lymphocytes (%) (Auto) 20.1 L 21.0-51.0 % Monocytes (%) (Auto) 5.3 3.0-13.0 % Eosinophils (%) (Auto) 0.9 0.0-8.0 % Basophils (%) (Auto) 0.3 0.0-5.0 % Neutrophils # (Auto) 7.2 1.8-7.7 K/uL Lymphocytes # (Auto) 2.0 1.0-4.8 K/uL Monocytes # (Auto) 0.5 0.1-1.0 K/uL Eosinophils # (Auto) 0.09 0.00-0.70 K/uL Basophils # (Auto) 0.03 0.00-0.20 K/uL Absolute Immature Granulocyte (auto 0.02 0-1 K/uL Nucleated Red Blood Cells 0.0 0.0-0.19 % Sodium Level 143 136-145 mmol/L Potassium Level 3.6 3.5-5.1 mmol/L Chloride Level 106 101-111 mmol/L Carbon Dioxide Level 28 21-32 mmol/L Blood Urea Nitrogen 10 7-18 mg/dL Creatinine 0.6 0.5-1.0 mg/dL Glomerular Filtration Rate Calc 130 >90 mL/min Random Glucose 120 H 70-105 mg/dL Total Calcium 8.4 L 8.5-10.1 mg/dL Total Bilirubin 0.4 0.2-1.0 mg/dL Direct Bilirubin 0.2 0.0-0.3 mg/dL Aspartate Amino Transf (AST/SGOT) 47 H 10-37 U/L Alanine Aminotransferase (ALT/SGPT) 26 12-78 U/L Alkaline Phosphatase 97 50-136 U/L Total Protein 6.8 6.0-8.3 g/dL Albumin 3.2 L 3.5-5.0 g/dL Lipase 773 *H 16-77 U/L DIAGNOSTICS / RADIOLOGY: [ ] REASON: Adominal Pain ORDERING PHYSICIAN: MARÍA ELENA HAMLIN DO PROCEDURE: [id number] - US ABDOMINAL RUQ\LTD EXAM: US Abdomen, Right Upper Quadrant. CLINICAL HISTORY: Adominal Pain TECHNIQUE: Right upper quadrant sonography performed with image documentation. COMPARISON: [place] HIDA scan dated 12/10/2024. CT abdomen and pelvis dated 12/08/2024. FINDINGS: LIVER: Within normal limits in size (15.2 cm) and shows raised echogenicity. No mass. GALLBLADDER: The gallbladder appears normal. No gallbladder wall thickening (0.3 cm) seen. Mobile calculi seen. COMMON BILE DUCT: Within normal limits in size (0.4 cm). PANCREAS: The visualized portion of the pancreas appears within normal limits. RIGHT KIDNEY: Unremarkable (10.6 x 4.4 x 4.1 cm). Normal renal contours. No renal mass or calculus. No hydronephrosis. IMPRESSION: Cholelithiasis. No evidence of cholecystitis. Hepatic steatosis. ASSESSMENT: acute pancreatitis POA Chronic Cholelithiasis, POA intractable abd pain morbid obesity POA PLAN: [ ] Admit: Medical-surgical floor condition: Guarded Status: Full code IVF: LR at 125. mL/hour [facility] Antibiotics: Zosyn 3.3 seven 5 g every 8 hours Imaging MRCP Labs cbc, cmp, mag+ Replace electrolytes as needed as per protocol to keep potassium above 4.0 magnesium 2.0. Home medications pending to be reviewed by RN nurse. PRN: MEDICATIONS Tylenol 650 mg po every 4 hrs for fever zofran 4 mg IV every 6 hrs for n/v Hydralazine 5 mg IV every 4 hrs systolic pressure > 160 bowel regiment: lactulose 20 gm PO BID PRN constipation Pain management: Morphine 2 mg IV every 4 hours for pain Supportive measures: DVT ppx, GI ppx all questions answered time spent: > 35 min Supervising MD: Dr. Huynh c/d This document was generated in part using voice recognition software, occasional wrong word or sound alike substitutions may have occurred due to the inherent limitations of voice recognition software. Read the chart carefully and recognize using context, where the substitutions have occurred. Although every effort was made to edit the content, bookkeeper and typing errors may occur ADVANCED CARE PLANNING 1. Which of the following were discussed? Hospice Care - Yes / No Therapeutic options - Yes / No Advance Directives - Yes / No Other discussions - 2. Discussed with who? 3. Voluntary nature of this service was explained to the patient? Yes / No 4. Amount of time spent - 5. Reviewed by Physician? (if this service was performed by NPP) Yes / No ATTESTATION BY PHYSICIAN I have seen and examined the patient. I reviewed the documentation, medical decision making, and treatment plan as noted by the mid-level provider above. I agree with the findings and plan of care. WALLY HUYNH MD, [facility] Jan 09, 2025 06:44
[2025-01-09] MEDS ORDERED: 0.9%NACL 50ML IV SCH (07:00)
[2025-01-09 07:18] LABS: ALCOHOL, BLOOD < 3 mg/dL (0-10)
--- NOTE | 2025-01-09 09:20 | NUR ---
DCP: Home Pt was discharged home 12/10. Pt lives with her mother Adelia Wilks [phone] in an apt. 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 Pt states she is independent of all her self care, uses no DME or in home care services. Family transports pt as needed. Pt has no PCP, states she is waiting for work insurance to start. Community resources given Pt to return home at ca. BRYAN MARTÍNEZ [phone] Addendum: 01/09/25 at 0924 by JOSE A DRISCOLL Amended: Links added.
[2025-01-09] MEDS: ZOSYN 3.375GM +NS 50ML IVPB SCH ×2 (09:24→21:13)
[2025-01-09] MEDS: FAMOTIDINE 20MG VIAL IV SCH (09:35)
[2025-01-09] MEDS: LACTATED RINGERS 1000ML 1,000 ML IV SCH (09:36)
--- NOTE | 2025-01-09 10:58 | NUR ---
report given to diana meraz, camille sent with patient
[2025-01-09 11:46] VITALS: O2SAT 98
[2025-01-09 12:00] VITALS: BP 100/67; PULSE 68; RESP 20; TEMP 97.2
--- NOTE | 2025-01-09 13:17 | NUR ---
PATIENT OFF UNIT FOR CT SCAN.
--- NOTE | 2025-01-09 13:52 | NUR ---
UNIT ARRIVAL PATIENT RETURNED TO UNIT VIA WHEELCHAIR.
[2025-01-09 16:00] VITALS: BP 109/69; PULSE 66; RESP 20; TEMP 97.4
--- NOTE | 2025-01-09 16:33 | CONS ---
GASTROENTEROLOGY CONSULTATION NOTE Date of Consultation: Jan 09, 2025 Time of Consultation: 16:29 History of Present Illness: [ This is a 24-year-old female patient who presents to the emergency room with complaints of epigastric pain radiating to mid back.Abdominal ultrasound showing cholelithiasis with no evidence of cholecystitis, hepatic steatosis. Common bile duct measuring 0.4 cm. MRCP was done and results are pending. We were consulted or acute pancreatitis. Patient's WBC of 9.8, hemoglobin 12.4, platelets 230. Glucose 120, calcium 8.4, total bilirubin 0.4, direct bilirubin 0.2, albumin 3.2 AST 47, lipase 773. On exam patient is sitting in high Colon's awake alert and in no acute distress. Respirations are unlabored with bilateral breath sounds clear. Abdomen is soft but tender to the upper abdomen. Patient reports pain has decreased, however, patient remains NPO. IV hydration and progress. Discussed with patient and mother and will await MRCP results to determine if an ERCP will be needed. Patient and mom verbalized understanding and agreement.] Review of Systems: CONSTITUTIONAL: No malaise or change in sensation of wellbeing. ENMT: No rhinorrhea, otorrhea, sinus pain, ear ache. CARDIOVASCULAR: No angina, palpitations, orthopnea or paroxysmal dyspnea. RESPIRATORY: No SOB. GASTROINTESTINAL: No abdominal pain, nausea, vomiting, diarrhea, hematemesis, melena or change in the patient's habitual bowel movements consistency/number. GENITOURINARY: No dysuria, hematuria or change in bladder continence. MUSCULOSKELETAL: No new muscle pain or decrease in muscular strength. No new joint swelling, redness or tenderness. SKIN: No new rash. Past Medical History: Obesity chronic Cholelithiasis PAST SURGICAL HISTORY: Negative PAST SOCIAL HISTORY: Denies smoking tobacco products and alcohol use lives with parents FAMILY HISTORY: noncontributory Coded Allergies: No Known Drug Allergies (Unverified Allergy, Unknown, 09/10/24) Physical Exam: GEN: Awake, alert, oriented in person, time and place, and in no acute distress. HEENT: No rhinorrhea. Oral mucosa moist and within normal limits. CHEST: Lung auscultation revealed normal breath sounds bilaterally. CARDIAC:Heart sounds are regular. ABD: Soft, tender to upper abdomen. Abdomen not distended. No peritoneal signs on palpation. Normal bowel sounds. Last bm 01/09/25 EXT: No cyanosis or clubbing. No edema. SKIN: Intact. No rashes. NEURO: Alert and oriented to name, place and person.No focal motor deficits. Normal speech. Vital Sign (Last 24 Hours) 01/09/25 01/09/25 11:46 12:00 Temp 97.2 Pulse 68 Resp 20 B/P (MAP) 100/67 Pulse Ox 98 O2 Delivery Room Air O2 Flow Rate 0 FiO2 21 Laboratory: [ ] Laboratory: Test 01/09/25 06:52 01/09/25 05:23 01/09/25 05:20 Range/Units Triglycerides Level 116 30-200 mg/dL Serum Alcohol < 3 0-10 mg/dL Urine Color YELLOW YELLOW Urine Appearance CLOUDY H CLEAR Urine pH 5.0 5.0-8.0 Urine Specific [place] 1.021 1.001-1.031 Urine Protein NEGATIVE NEGATIVE mg/dL Urine Glucose (UA) NEGATIVE NEGATIVE mg/dL Urine Ketones NEGATIVE NEGATIVE mg/dL Urine Occult Blood +- (TRACE) H NEGATIVE Urine Nitrate NEGATIVE NEGATIVE Urine Bilirubin NEGATIVE NEGATIVE mg/dL Urine Urobilinogen 0.2 0.2-1.0 mg/dL Urine Leukocyte Esterase 25 H NEGATIVE Mira/uL Urine RBC 2-5 H 0-1 /HPF Urine WBC 2-5 H 0-1 /HPF Urine Squamous Epithelial Cells MANY 0-2 /HPF Urine Bacteria RARE None Seen /HPF Urine HCG, Qualitative NEGATIVE NEGATIVE White Blood Count 9.8 4.8-10.8 K/uL Red Blood Count 4.04 4.00-5.50 MIL/uL Hemoglobin 12.4 12.0-16.0 g/dL Hematocrit 35.7 L 36-48 % Mean Corpuscular Volume 88.4 79-99 fL Mean Corpuscular Hemoglobin 30.7 27.0-33.0 pg Mean Corpuscular Hemoglobin Concent 34.7 32.0-36.0 g/dL Red Cell Distribution Width 12.9 11.0-15.5 % Platelet Count 238 130-400 K/uL Mean Platelet Volume 10.4 7.5-10.5 fL Immature Granulocyte % (Auto) 0.2 0-1 % Neutrophils (%) (Auto) 73.2 40.0-77.0 % Lymphocytes (%) (Auto) 20.1 L 21.0-51.0 % Monocytes (%) (Auto) 5.3 3.0-13.0 % Eosinophils (%) (Auto) 0.9 0.0-8.0 % Basophils (%) (Auto) 0.3 0.0-5.0 % Neutrophils # (Auto) 7.2 1.8-7.7 K/uL Lymphocytes # (Auto) 2.0 1.0-4.8 K/uL Monocytes # (Auto) 0.5 0.1-1.0 K/uL Eosinophils # (Auto) 0.09 0.00-0.70 K/uL Basophils # (Auto) 0.03 0.00-0.20 K/uL Absolute Immature Granulocyte (auto 0.02 0-1 K/uL Nucleated Red Blood Cells 0.0 0.0-0.19 % Sodium Level 143 136-145 mmol/L Potassium Level 3.6 3.5-5.1 mmol/L Chloride Level 106 101-111 mmol/L Carbon Dioxide Level 28 21-32 mmol/L Blood Urea Nitrogen 10 7-18 mg/dL Creatinine 0.6 0.5-1.0 mg/dL Glomerular Filtration Rate Calc 130 >90 mL/min Random Glucose 120 H 70-105 mg/dL Total Calcium 8.4 L 8.5-10.1 mg/dL Total Bilirubin 0.4 0.2-1.0 mg/dL Direct Bilirubin 0.2 0.0-0.3 mg/dL Aspartate Amino Transf (AST/SGOT) 47 H 10-37 U/L Alanine Aminotransferase (ALT/SGPT) 26 12-78 U/L Alkaline Phosphatase 97 50-136 U/L Total Protein 6.8 6.0-8.3 g/dL Albumin 3.2 L 3.5-5.0 g/dL Lipase 773 *H 16-77 U/L Current Medications Medications (Trade) Dose Ordered Sig/Anaya Route PRN Reason Start Time Stop Time Status Last Admin Dose Admin Acetaminophen (TYLenol 325MG TAB) 650 mg Q4H PRN PO TEMPERATURE GREATER THAN 101.5 01/09/25 07:00 02/08/25 06:59 Famotidine (Pepcid 20mg Vial) 20 mg BID IV 01/09/25 09:00 02/08/25 08:59 01/09/25 09:35 20 MG Lactated Ringer's 1,000 ml @ 125 mls/hr Q8H IV 01/09/25 07:00 02/08/25 06:59 01/09/25 09:36 125 MLS/HR Magnesium Sulfate 50 ml @ 0 mls/hr PROTOCOL PRN IV low mag level 01/09/25 07:00 02/08/25 06:59 Morphine Sulfate (morPHINE 2MG SYG) 2 mg Q4H PRN IVP SEVERE PAIN (7-10) 01/09/25 07:00 01/16/25 06:59 Piperacillin Sod/ Tazobactam Sod (Zosyn 3.375gm+NS 50ml) 3.375 gm Q8H IVPB 01/09/25 07:00 01/19/25 06:59 01/09/25 09:24 3.375 GM Potassium Chloride 100 ml @ 50 mls/hr AD PRN IV POTASSIUM PROTOCOL 01/09/25 07:00 02/08/25 06:59 Sodium Chloride (NS 50ml) 50 ml AD IV 01/09/25 07:00 01/09/25 07:05 DC Diagnostics / Radiology: [COPY/PASTE HERE IF NO REPORTS PLEASE DELETE SECTION] Assessment: Acute pancreatitis Possible causes to consider include alcohol, idiopathic, hypertriglyceridemia, medications, hypercalcemia, ERCP, celiac disease, autoimmune pancreatitis, vasculitis Plan: Case discussed with Dr. Díaz 1. NPO Await MRCP reults. 2. Aggressive IV fluids lactated Ringer's 200-400 mL/hour for 12-24 hours to maintain adequate pancreatic perfusion and prevent ischemic necrosis 3. Supportive care with opioid analgesics (avoid NSAIDs) and antiemetics 4. Close patient monitoring of vital signs including O2 saturations, urine ou tput, and electrolyte replacement 5. Resume oral intake within two days if the pain is decreasing and there is no ileus with a low fat, low residue diet. Advance as tolerated 6. Consider CT with IV contrast after 48 hours of aggressive IVF to assess for n ecrosis if the patient is not progressing. 7. If oral diet is not tolerated, naso jejunal tube feeds are preferred overt TPN Thank you for allowing us to participate in the care of this patient! ] DEVORAH SEARS ARTIST MANAGER Jan 09, 2025 16:33
[2025-01-09 20:00] VITALS: BP 131/78; PULSE 73; RESP 18; TEMP 97.6; O2SAT 96
--- NOTE | 2025-01-09 23:31 | HMCIMG ---
EXAM: MR Cholangiopancreatography (MRCP). CLINICAL HISTORY: Cholelithiasis with prior sonographic and CT evidence of gallstones and hepatic steatosis. Evaluation for biliary tree anatomy and complications. TECHNIQUE: Multiplanar and multisequence MRCP images were obtained without intravenous contrast, utilizing heavily T2-weighted sequences optimized for biliary and pancreatic ductal evaluation. COMPARISON: Ultrasound abdomen dated 01/09/2025. CT abdomen (non-contrast) dated 01/07/2025. FINDINGS: LIVER: Normal size and contour. Mild background hepatic steatosis. No focal hepatic lesion identified. GALLBLADDER AND BILIARY SYSTEM: Multiple small hypointense filling defects measuring 3???4 mm within the gallbladder lumen, consistent with multiple gallstones. No pericholecystic fluid or wall edema to suggest cholecystitis. Gallbladder neck and cystic duct are patent. Common bile duct (CBD) measures 0.4 cm in diameter with smooth distal tapering at the ampullary end ??? within normal limits. No intraductal filling defects or dilatation. BILIARY ANATOMY VARIANT: Right posterior hepatic duct drains into the common hepatic duct rather than joining the right anterior duct ??? classified as Williamson Type A3 (right posterior hepatic duct draining directly into the common hepatic duct), a recognized normal variant. PANCREAS: Normal morphology and signal. No ductal dilatation, mass, or peripancreatic fluid. SPLEEN: Normal in size and configuration. ADRENALS: Normal bilaterally. No nodules or thickening. KIDNEYS: Normal size and contour. No calculi, hydronephrosis, or solid renal mass. RETROPERITONEUM: No lymphadenopathy or mass. AORTA: Normal caliber and contour. No aneurysm or stenosis. BOWEL AND MESENTERY: Normal appearance. No wall thickening, obstruction, or mesenteric inflammatory change. ABDOMINAL WALL AND BONES: Unremarkable. No hernia or osseous abnormality identified. IMPRESSION: * Cholelithiasis with multiple small gallstones (3???4 mm) without evidence of cholecystitis. * Common bile duct of normal caliber (0.4 cm) with smooth distal tapering and no choledocholithiasis. * Variant biliary anatomy ??? right posterior hepatic duct draining into the common hepatic duct (Williamson Type A3 configuration). * Mild hepatic steatosis. * No pancreatic, splenic, renal, or retroperitoneal abnormality. RADIOLOGIC???CLINICAL CORRELATION: The MRCP demonstrates uncomplicated cholelithiasis with preserved biliary drainage and a normal-caliber ductal system. The identified Williamson Type A3 biliary variant holds surgical relevance, particularly for cholecystectomy or biliary interventions, as inadvertent injury to the right posterior hepatic duct can occur if unrecognized. No imaging evidence of acute inflammation or obstructive pathology. Recommend standard surgical planning and intraoperative cholangiographic confirmation if cholecystectomy is pursued. /[place]
[2025-01-10] VITALS: BP 115/61; PULSE 61; RESP 20; TEMP 97.5
[2025-01-10 04:00] VITALS: BP 122/68; PULSE 77; RESP 16; TEMP 97.5
[2025-01-10 08:00] VITALS: BP 103/62; PULSE 60; RESP 18; TEMP 97.6; O2SAT 95
--- NOTE | 2025-01-10 09:55 | PN ---
[facility] PROGRESS NOTE Date of Service: Jan 10, 2025 Time of Service: 09:53 SUBJECTIVE: [ ] admission date: 01/09/25 PCP: self referral CC: abd pain This is a 24-year-old female presents in ED with chief complaints of abdominal pain. Onset started to 30 this morning location epigastric, duration constant radiates to mid back to right upper shoulder. Character is described as pressure and burning. Pain on arrival was 10/10. Alleviating factors none, symptoms are aggravated with p.o. intake. Associated symptoms nausea and vomiting. ER workup was consistent with acute pancreatitis. Patient was recently hospitalized a month ago for similar symptoms patient has a history of chronic Cholelithiasis. HIDA scan was done on that admission no acute cho lecystitis noted on that admission she is now here with acute pancreatitis. We will get a MRCP possible ERCP GI has been consulted. 01/10/25 patient was seen earlier patient is lying in bed patient has dull pain she remains NPO waiting for further recommendations from GI and general surgeon. REVIEW OF SYSTEMS A 12 point ROS obtained all relevant positive documented otherwise ROS negative PHYSICAL EXAM GENERAL APPEARANCE: The patient is awake, alert, and oriented, in no acute cardiopulmonary distress. NEUROLOGICAL: Cranial nerves II-XII grossly intact. Motor is 5/5 in bilateral upper and lower extremities proximal to distal. No sensory deficits. HEENT: Face is symmetric. Pupils are equal and reactive. Extraocular movements are intact. NECK: Supple. No JVD. No thyromegaly. No submental, submandibular, pre- /postauricular, occipital or supraclavicular lymphadenopathy. CHEST: Normal chest expansion. No Telemetry. LUNGS: Absence of any rales, rhonchi or any wheezing. CARDIOVASCULAR: Regular. S1 and S2 normal. No appreciable rubs, murmurs or gallops. ABDOMEN: Soft, nontender, and nondistended. There is no rebound, voluntary guarding, or rigidity. : Deferred. No Perla. EXTREMITIES: Non-edematous and not cyanotic. No clubbing. Good capillary refill. SKIN: No skin breakdown. Vital Signs (last 8hr) Date Time Temp Pulse Resp B/P (MAP) Pulse Ox O2 Delivery O2 Flow Rate FiO2 01/10/25 08:00 97.5 60 18 103/62 95 Room Air 01/10/25 04:00 97.5 77 16 122/68 99 Room Air LABS: Laboratory: Test 01/09/25 06:52 01/09/25 05:23 01/09/25 05:20 Range/Units Triglycerides Level 116 30-200 mg/dL Serum Alcohol < 3 0-10 mg/dL Urine Color YELLOW YELLOW Urine Appearance CLOUDY H CLEAR Urine pH 5.0 5.0-8.0 Urine Specific [place] 1.021 1.001-1.031 Urine Protein NEGATIVE NEGATIVE mg/dL Urine Glucose (UA) NEGATIVE NEGATIVE mg/dL Urine Ketones NEGATIVE NEGATIVE mg/dL Urine Occult Blood +- (TRACE) H NEGATIVE Urine Nitrate NEGATIVE NEGATIVE Urine Bilirubin NEGATIVE NEGATIVE mg/dL Urine Urobilinogen 0.2 0.2-1.0 mg/dL Urine Leukocyte Esterase 25 H NEGATIVE [place]/uL Urine RBC 2-5 H 0-1 /HPF Urine WBC 2-5 H 0-1 /HPF Urine Squamous Epithelial Cells MANY 0-2 /HPF Urine Bacteria RARE None Seen /HPF Urine HCG, Qualitative NEGATIVE NEGATIVE White Blood Count 9.8 4.8-10.8 K/uL Red Blood Count 4.04 4.00-5.50 MIL/uL Hemoglobin 12.4 12.0-16.0 g/dL Hematocrit 35.7 L 36-48 % Mean Corpuscular Volume 88.4 79-99 fL Mean Corpuscular Hemoglobin 30.7 27.0-33.0 pg Mean Corpuscular Hemoglobin Concent 34.7 32.0-36.0 g/dL Red Cell Distribution Width 12.9 11.0-15.5 % Platelet Count 238 130-400 K/uL Mean Platelet Volume 10.4 7.5-10.5 fL Immature Granulocyte % (Auto) 0.2 0-1 % Neutrophils (%) (Auto) 73.2 40.0-77.0 % Lymphocytes (%) (Auto) 20.1 L 21.0-51.0 % Monocytes (%) (Auto) 5.3 3.0-13.0 % Eosinophils (%) (Auto) 0.9 0.0-8.0 % Basophils (%) (Auto) 0.3 0.0-5.0 % Neutrophils # (Auto) 7.2 1.8-7.7 K/uL Lymphocytes # (Auto) 2.0 1.0-4.8 K/uL Monocytes # (Auto) 0.5 0.1-1.0 K/uL Eosinophils # (Auto) 0.09 0.00-0.70 K/uL Basophils # (Auto) 0.03 0.00-0.20 K/uL Absolute Immature Granulocyte (auto 0.02 0-1 K/uL Nucleated Red Blood Cells 0.0 0.0-0.19 % Sodium Level 143 136-145 mmol/L Potassium Level 3.6 3.5-5.1 mmol/L Chloride Level 106 101-111 mmol/L Carbon Dioxide Level 28 21-32 mmol/L Blood Urea Nitrogen 10 7-18 mg/dL Creatinine 0.6 0.5-1.0 mg/dL Glomerular Filtration Rate Calc 130 >90 mL/min Random Glucose 120 H 70-105 mg/dL Total Calcium 8.4 L 8.5-10.1 mg/dL Total Bilirubin 0.4 0.2-1.0 mg/dL Direct Bilirubin 0.2 0.0-0.3 mg/dL Aspartate Amino Transf (AST/SGOT) 47 H 10-37 U/L Alanine Aminotransferase (ALT/SGPT) 26 12-78 U/L Alkaline Phosphatase 97 50-136 U/L Total Protein 6.8 6.0-8.3 g/dL Albumin 3.2 L 3.5-5.0 g/dL Lipase 773 *H 16-77 U/L Current Medications Medications (Trade) Dose Ordered Sig/Anaya Route PRN Reason Start Time Stop Time Status Last Admin Dose Admin Acetaminophen (TYLenol 325MG TAB) 650 mg Q4H PRN PO TEMPERATURE GREATER THAN 101.5 01/09/25 07:00 02/08/25 06:59 Famotidine (Pepcid 20mg Vial) 20 mg BID IV 01/09/25 09:00 02/08/25 08:59 01/10/25 08:25 20 MG Lactated Ringer's 1,000 ml @ 125 mls/hr Q8H IV 01/09/25 07:00 02/08/25 06:59 01/10/25 08:26 125 MLS/HR Magnesium Sulfate 50 ml @ 0 mls/hr PROTOCOL PRN IV low mag level 01/09/25 07:00 02/08/25 06:59 Morphine Sulfate (morPHINE 2MG SYG) 2 mg Q4H PRN IVP SEVERE PAIN (7-10) 10/28/25 07:00 01/16/25 06:59 Piperacillin Sod/ Tazobactam Sod (Zosyn 3.375gm+NS 50ml) 3.375 gm Q8H IVPB 01/09/25 07:00 01/09/25 20:21 DC 01/09/25 09:24 3.375 GM Piperacillin Sod/ Tazobactam Sod (Zosyn 3.375gm+NS 50ml) 3.375 gm Q8H IVPB 01/09/25 20:30 01/19/25 20:29 01/10/25 05:08 3.375 GM Potassium Chloride 100 ml @ 50 mls/hr AD PRN IV POTASSIUM PROTOCOL 01/09/25 07:00 02/08/25 06:59 Sodium Chloride (NS 50ml) 50 ml AD IV 01/09/25 07:00 01/09/25 07:05 DC DIAGNOSTICS / RADIOLOGY: [ ] ASSESSMENT: acute pancreatitis POA resolved Chronic Cholelithiasis, POA intractable abd pain POA morbid obesity POA PLAN: [ ] Admit: Medical-surgical floor condition: Guarded Status: Full code IVF: Decrease IV fluids to 75 mL/hour diet remains NPO until seen by consultants Consultants GI general surgeon Antibiotics: Zosyn 3.3 seven 5 g every 8 hours Imaging MRCP noted Labs cbc, cmp, mag+ Replace electrolytes as needed as per protocol to keep potassium above 4.0 magnesium 2.0. Home medications pending to be reviewed by RN nurse. PRN: MEDICATIONS Tylenol 650 mg po every 4 hrs for fever zofran 4 mg IV every 6 hrs for n/v Hydralazine 5 mg IV every 4 hrs systolic pressure > 160 bowel regiment: lactulose 20 gm PO BID PRN constipation Pain management: Morphine 2 mg IV every 4 hours for pain Supportive measures: DVT ppx, GI ppx all questions answered Supervising MD: Dr. Huynh c/chante This document was generated in part using voice recognition software, occasional wrong word or sound alike substitutions may have occurred due to the inherent limitations of voice recognition software. Read the chart carefully and recognize using context, where the substitutions have occurred. Although every effort was made to edit the content, birth certificate clerk and typing errors may occur ATTESTATION BY PHYSICIAN I have seen and examined the patient. I reviewed the documentation, medical decision making, and treatment plan as noted by the mid-level provider above. I agree with the findings and plan of care. WALLY HUYNH MD, [facility] Jan 10, 2025 09:55
[2025-01-10 09:56] LABS: NUCLEATED RED BLOOD CELLS 0.0 % (0.0-0.19); PLATELET COUNT (AUTO) 229.0 K/uL (130-400); RED BLOOD CELL COUNT(AUTO) 3.94 MIL/uL (4.00-5.50); RED CELL DISTRIBUTION WIDTH 12.9 % (11.0-15.5); WHITE BLOOD COUNT (AUTO) 4.8 K/uL (4.8-10.8)
[2025-01-10 10:11] LABS: ASPARTATE AMINOTRANSFERASE 23.0 U/L (10-37); CREATININE 0.5 mg/dL (0.5-1.0); GLOMERULAR FILTR. RATE CALC 136.0 mL/min (>90); GLUCOSE,RANDOM 92.0 mg/dL (70-105); SODIUM SERUM 141.0 mmol/L (136-145); TOTAL PROTEIN, SERUM 6.3 g/dL (6.0-8.3); UREA NITROGEN, BLOOD 6.0 mg/dL (7-18)
--- NOTE | 2025-01-10 11:21 | PN ---
GASTROENTEROLOGY PROGRESS NOTE Date of Visit: Jan 10, 2025 Time of Visit: 11:13 Events / Notes: [MRCP Positive for cholelithiasis with multiple small gallstones without evidence of cholecystitis. Common bile duct of normal caliber with smooth distal tapering and no choledocholithiasis. Variant biliary anatomy right posterior hepatic duct draining into the common hepatic duct (Williamson Type A3 configuration), Mild hepatic steatosis. No pancreatic, splenic, renal, or retroperitoneal abnormality. Patient's vital signs are stable. Patient continues on Zosyn t.i.d., famotidine b.i.d. and IV hydration. Patient's WBC of 4.8, hemoglobin 11.7, platelets 229. Chemistries significant for BUN of six, calcium 8.3, total protein 2.9, lipase has decreased to 20. Patient reports she is feeling much better and pain has subsided. MRCP results given and will defer to any surgical recommendations. She reports possible surgery tomorrow. ] Review of Systems: CONSTITUTIONAL: No malaise or change in sensation of wellbeing. ENMT: No rhinorrhea, otorrhea, sinus pain, ear ache. CARDIOVASCULAR: No angina, palpitations, orthopnea or paroxysmal dyspnea. RESPIRATORY: No SOB. GASTROINTESTINAL: No abdominal pain, nausea, vomiting, diarrhea, hematemesis, melena or change in the patient's habitual bowel movements consistency/number. GENITOURINARY: No dysuria, hematuria or change in bladder continence. MUSCULOSKELETAL: No new muscle pain or decrease in muscular strength. No new joint swelling, redness or tenderness. SKIN: No new rash. Physical Exam: GEN: Awake, alert, oriented in person, time and place, and in no acute distress. HEENT: No rhinorrhea. Oral mucosa moist and within normal limits. CHEST: Lung auscultation revealed normal breath sounds bilaterally. CARDIAC:Heart sounds are regular. ABD: Soft. Abdomen not distended. No peritoneal signs on palpation. Normal bowel sounds. Last bm 01/09/25 EXT: No cyanosis or clubbing. No edema. SKIN: Intact. No rashes. NEURO: Alert and oriented to name, place and person.No focal motor deficits. Normal speech. Vital Signs (last 8hr) Date Time Temp Pulse Resp B/P (MAP) Pulse Ox O2 Delivery O2 Flow Rate FiO2 01/10/25 08:00 95 Room Air* 0 21 01/10/25 08:00 97.5 60 18 103/62 95 Room Air 01/10/25 04:00 97.5 77 16 122/68 99 Room Air Laboratory: [ ] Laboratory: Test 01/10/25 09:43 01/09/25 06:52 01/09/25 05:23 01/09/25 05:20 Range/Units White Blood Count 4.8 4.8-10.8 K/uL Red Blood Count 3.94 L 4.00-5.50 MIL/uL Hemoglobin 11.7 L 12.0-16.0 g/dL Hematocrit 35.8 L 36-48 % Mean Corpuscular Volume 90.9 79-99 fL Mean Corpuscular Hemoglobin 29.7 27.0-33.0 pg Mean Corpuscular Hemoglobin Concent 32.7 32.0-36.0 g/dL Red Cell Distribution Width 12.9 11.0-15.5 % Platelet Count 229 130-400 K/uL Mean Platelet Volume 10.4 7.5-10.5 fL Nucleated Red Blood Cells 0.0 0.0-0.19 % Sodium Level 141 136-145 mmol/L Potassium Level 3.9 3.5-5.1 mmol/L Chloride Level 107 101-111 mmol/L Carbon Dioxide Level 31 21-32 mmol/L Blood Urea Nitrogen 6 L 7-18 mg/dL Creatinine 0.5 0.5-1.0 mg/dL Glomerular Filtration Rate Calc 136 >90 mL/min Random Glucose 92 70-105 mg/dL Total Calcium 8.3 L 8.5-10.1 mg/dL Magnesium Level 2.00 1.80-2.40 mg/dL Total Bilirubin 0.6 0.2-1.0 mg/dL Aspartate Amino Transf (AST/SGOT) 23 10-37 U/L Alanine Aminotransferase (ALT/SGPT) 26 12-78 U/L Alkaline Phosphatase 84 50-136 U/L Total Protein 6.3 6.0-8.3 g/dL Albumin 2.9 L 3.5-5.0 g/dL Amylase Level 49 25-115 U/L Lipase 20 16-77 U/L Triglycerides Level 116 30-200 mg/dL Serum Alcohol < 3 0-10 mg/dL Urine Color YELLOW YELLOW Urine Appearance CLOUDY H CLEAR Urine pH 5.0 5.0-8.0 Urine Specific [place] 1.021 1.001-1.031 Urine Protein NEGATIVE NEGATIVE mg/dL Urine Glucose (UA) NEGATIVE NEGATIVE mg/dL Urine Ketones NEGATIVE NEGATIVE mg/dL Urine Occult Blood +- (TRACE) H NEGATIVE Urine Nitrate NEGATIVE NEGATIVE Urine Bilirubin NEGATIVE NEGATIVE mg/dL Urine Urobilinogen 0.2 0.2-1.0 mg/dL Urine Leukocyte Esterase 25 H NEGATIVE [place]/uL Urine RBC 2-5 H 0-1 /HPF Urine WBC 2-5 H 0-1 /HPF Urine Squamous Epithelial Cells MANY 0-2 /HPF Urine Bacteria RARE None Seen /HPF Urine HCG, Qualitative NEGATIVE NEGATIVE Immature Granulocyte % (Auto) 0.2 0-1 % Neutrophils (%) (Auto) 73.2 40.0-77.0 % Lymphocytes (%) (Auto) 20.1 L 21.0-51.0 % Monocytes (%) (Auto) 5.3 3.0-13.0 % Eosinophils (%) (Auto) 0.9 0.0-8.0 % Basophils (%) (Auto) 0.3 0.0-5.0 % Neutrophils # (Auto) 7.2 1.8-7.7 K/uL Lymphocytes # (Auto) 2.0 1.0-4.8 K/uL Monocytes # (Auto) 0.5 0.1-1.0 K/uL Eosinophils # (Auto) 0.09 0.00-0.70 K/uL Basophils # (Auto) 0.03 0.00-0.20 K/uL Absolute Immature Granulocyte (auto 0.02 0-1 K/uL Direct Bilirubin 0.2 0.0-0.3 mg/dL Current Medications Medications (Trade) Dose Ordered Sig/Anaya Route PRN Reason Start Time Stop Time Status Last Admin Dose Admin Acetaminophen (TYLenol 325MG TAB) 650 mg Q4H PRN PO TEMPERATURE GREATER THAN 101.5 01/09/25 07:00 02/08/25 06:59 Famotidine (Pepcid 20mg Vial) 20 mg BID IV 01/09/25 09:00 02/08/25 08:59 01/10/25 08:25 20 MG Lactated Ringer's 1,000 ml @ 125 mls/hr Q8H IV 01/09/25 07:00 02/08/25 06:59 01/10/25 08:26 125 MLS/HR Magnesium Sulfate 50 ml @ 0 mls/hr PROTOCOL PRN IV low mag level 01/09/25 07:00 02/08/25 06:59 Morphine Sulfate (morPHINE 2MG SYG) 2 mg Q4H PRN IVP SEVERE PAIN (7-10) 01/09/25 07:00 01/16/25 06:59 Piperacillin Sod/ Tazobactam Sod (Zosyn 3.375gm+NS 50ml) 3.375 gm Q8H IVPB 01/09/25 07:00 01/09/25 20:21 DC 01/09/25 09:24 3.375 GM Piperacillin Sod/ Tazobactam Sod (Zosyn 3.375gm+NS 50ml) 3.375 gm Q8H IVPB 01/09/25 20:30 01/19/25 20:29 01/10/25 05:08 3.375 GM Potassium Chloride 100 ml @ 50 mls/hr AD PRN IV POTASSIUM PROTOCOL 01/09/25 07:00 02/08/25 06:59 Sodium Chloride (NS 50ml) 50 ml AD IV 01/09/25 07:00 01/09/25 07:05 DC Diagnostics / Radiology: [COPY/PASTE HERE IF NO REPORTS PLEASE DELETE SECTION] Assessment: Abdominal pain Acute pancreatitis Cholelithiasis Possible causes to consider include alcohol, idiopathic, hypertriglyceridemia, medications, hypercalcemia, ERCP, celiac disease, autoimmune pancreatitis, vasculitis Plan: Case discussed with Dr. Díaz 1. MRCP negative for choledocholithiasis 2. Continue Iv hydration 3. Supportive care with opioid analgesics (avoid NSAIDs) and antiemetics 4. Close patient monitoring of vital signs including O2 saturations, urine output, and electrolyte replacement 5. Recommend Surgical consult for evaluation for cholecystectomy and will defer to surgical recommendations. 6. Will sign off on patient care. Thank you for allowing us to participate in the care of this patient! ] DEVORAH SEARS Jan 10, 2025 11:21
[2025-01-10 12:00] VITALS: BP 112/48; PULSE 61; RESP 18; TEMP 97.9
--- NOTE | 2025-01-10 12:36 | CONS ---
GENERAL SURGERY CONSULTATION NOTE Date/Time Patient Seen: JANUARY 10, 2025 11:15 A.M. Requesting Physician: DR. HUYNH Reason for Consultation: GALLSTONE PANCREATITIS History of Present Illness: THIS IS A 24-YEAR-OLD MORBIDLY OBESE FEMALE WHO IS WELL KNOWN TO ME WHO WAS ADMITTED WEDNESDAY NIGHT FOR SEVERE EPIGASTRIC ABDOMINAL PAIN. SHE WAS DIAGNOSED WITH PANCREATITIS. SHE WAS PREVIOUSLY ADMITTED ONE MONTH AGO FOR SYMPTOMATIC CHOLELITHIASIS. SHE HAD A NEGATIVE HIDA SCAN. I SAW HER IN CONSULTATION DURING HER LAST ADMISSION IN HOWEVER SHE DID NOT FOLLOW UP WITH ME IN MY OFFICE. SHE STATES THAT HER SEVERE EPIGASTRIC ABDOMINAL PAIN STARTED AROUND 2:30 A.M. WEDNESDAY MORNING. IT DID NOT GO AWAY AND SHE PRESENTED TO THE ER. HER LIPASE WAS INITIALLY 773. TODAY IT IS 20 SHE STATES THAT HER ABDOMINAL PAIN HAS SIGNIFICANTLY IMPROVED. Past Medical History: MORBID OBESITY SYMPTOMATIC CHOLELITHIASIS Past Surgical History: NONE Family History: NONCONTRIBUTORY Social History: LIVES AT HOME WITH PARENTS Habits: [Never] smoker. [Denies] alcohol consumption. [Denies] illicit drug use Current Medications Medications (Trade) Dose Ordered Sig/Anaya Route Start Time Stop Time Status Last Admin Dose Admin Famotidine (Pepcid 20mg Vial) 20 mg BID IV 01/09/25 09:00 02/08/25 08:59 01/10/25 08:25 20 MG Lactated Ringer's 1,000 ml @ 125 mls/hr Q8H IV 01/09/25 07:00 02/08/25 06:59 01/10/25 08:26 125 MLS/HR Piperacillin Sod/ Tazobactam Sod (Zosyn 3.375gm+NS 50ml) 3.375 gm Q8H IVPB 01/09/25 07:00 01/09/25 20:21 DC 01/09/25 09:24 3.375 GM Piperacillin Sod/ Tazobactam Sod (Zosyn 3.375gm+NS 50ml) 3.375 gm Q8H IVPB 01/09/25 20:30 01/19/25 20:29 01/10/25 12:30 3.375 GM Sodium Chloride (NS 50ml) 50 ml AD IV 01/09/25 07:00 01/09/25 07:05 DC Review of Systems: CONST: [No fever, fatigue, or weight changes.] EYES: [No recent vision problems.] ENT: [No congestion, ear pain, or sore throat.] C/V: [No chest pain, palpitations, or edema.] RESP: [No cough, congestion, wheezing or shortness of breath.] GI: [PROBLEMS BEFORE ABDOMINAL PAIN,] : [No incontinence or dysuria.] SKIN: [No rash.] NEURO: [No headache, focal numbness or weakness, dizziness, or seizures.] PSYCH: [No depression or anxiety.] HEME: [No abnormal bruising or bleeding.] LYMPH: [No swollen glands.] Physical Examination: GENERAL: [No acute distress.] HEAD: [Normal with no signs of head trauma.] EYES: [PERRLA, EOMI, conjunctiva and sclera normal.] ENT: [Hearing grossly intact, normal oropharynx.] NECK: [Supple without JVD. There is no tenderness, lymphadenopathy, or masses. No thyromegaly. Normal carotid upstrokes without bruits.] LUNGS: [Clear breath sounds bilaterally. There are right basilar rales one third of the way up the chest. No wheezes, or rhonchi.] HEART: [Normal rate and rhythm. Normal S1 and S2 without mumurs, gallop or rub.] VASC: [Peripheral pulses +2 bilaterally.] ABD: [Bowel sounds normal, soft, MINIMUM EPIGASTRIC TENDERNESS, no masses, no organomegaly. No audible bruits.] : [Not examined] LYMPH: [No lymphadenopathy noted.] EXT: [No clubbing, cyanosis or edema.] SKIN: [No rashes or lesions noted.] NEURO: [Awake, alert, and oriented x3. No focal sensory or strength deficits noted.] Vital Signs (last 8hr) Date Time Temp Pulse Resp B/P (MAP) Pulse Ox O2 Delivery O2 Flow Rate FiO2 01/10/25 12:00 97.9 61 18 112/48 97 Room Air 01/10/25 08:00 95 Room Air* 0 21 01/10/25 08:00 97.5 60 18 103/62 95 Room Air Laboratory: [ ] Hematology Labs: Test 01/10/25 09:43 01/09/25 05:20 Range/Units White Blood Count 4.8 4.8-10.8 K/uL Red Blood Count 3.94 L 4.00-5.50 MIL/uL Hemoglobin 11.7 L 12.0-16.0 g/dL Hematocrit 35.8 L 36-48 % Mean Corpuscular Volume 90.9 79-99 fL Mean Corpuscular Hemoglobin 29.7 27.0-33.0 pg Mean Corpuscular Hemoglobin Concent 32.7 32.0-36.0 g/dL Red Cell Distribution Width 12.9 11.0-15.5 % Platelet Count 229 130-400 K/uL Mean Platelet Volume 10.4 7.5-10.5 fL Nucleated Red Blood Cells 0.0 0.0-0.19 % Immature Granulocyte % (Auto) 0.2 0-1 % Neutrophils (%) (Auto) 73.2 40.0-77.0 % Lymphocytes (%) (Auto) 20.1 L 21.0-51.0 % Monocytes (%) (Auto) 5.3 3.0-13.0 % Eosinophils (%) (Auto) 0.9 0.0-8.0 % Basophils (%) (Auto) 0.3 0.0-5.0 % Neutrophils # (Auto) 7.2 1.8-7.7 K/uL Lymphocytes # (Auto) 2.0 1.0-4.8 K/uL Monocytes # (Auto) 0.5 0.1-1.0 K/uL Eosinophils # (Auto) 0.09 0.00-0.70 K/uL Basophils # (Auto) 0.03 0.00-0.20 K/uL Absolute Immature Granulocyte (auto 0.02 0-1 K/uL Chemistry Labs: Test 01/10/25 09:43 01/09/25 06:52 01/09/25 05:20 Range/Units Sodium Level 141 136-145 mmol/L Potassium Level 3.9 3.5-5.1 mmol/L Chloride Level 107 101-111 mmol/L Carbon Dioxide Level 31 21-32 mmol/L Blood Urea Nitrogen 6 L 7-18 mg/dL Creatinine 0.5 0.5-1.0 mg/dL Glomerular Filtration Rate Calc 136 >90 mL/min Random Glucose 92 70-105 mg/dL Total Calcium 8.3 L 8.5-10.1 mg/dL Magnesium Level 2.00 1.80-2.40 mg/dL Total Bilirubin 0.6 0.2-1.0 mg/dL Aspartate Amino Transf (AST/SGOT) 23 10-37 U/L Alanine Aminotransferase (ALT/SGPT) 26 12-78 U/L Alkaline Phosphatase 84 50-136 U/L Total Protein 6.3 6.0-8.3 g/dL Albumin 2.9 L 3.5-5.0 g/dL Amylase Level 49 25-115 U/L Lipase 20 16-77 U/L Triglycerides Level 116 30-200 mg/dL Direct Bilirubin 0.2 0.0-0.3 mg/dL Diagnostics / Radiology: ABDOMINAL ULTRASOUND: CHOLELITHIASIS WITH NORMAL COMMON BILE DUCT EXAM: MR Cholangiopancreatography (MRCP). CLINICAL HISTORY: Cholelithiasis with prior sonographic and CT evidence of gallstones and hepatic steatosis. Evaluation for biliary tree anatomy and complications. TECHNIQUE: Multiplanar and multisequence MRCP images were obtained without intravenous contrast, utilizing heavily T2-weighted sequences optimized for biliary and pancreatic ductal evaluation. COMPARISON: Ultrasound abdomen dated 01/09/2025. CT abdomen (non-contrast) dated 01/07/2025. FINDINGS: LIVER: Normal size and contour. Mild background hepatic steatosis. No focal hepatic lesion identified. GALLBLADDER AND BILIARY SYSTEM: Multiple small hypointense filling defects measuring 3???4 mm within the gallbladder lumen, consistent with multiple gallstones. No pericholecystic fluid or wall edema to suggest cholecystitis. Gallbladder neck and cystic duct are patent. Common bile duct (CBD) measures 0.4 cm in diameter with smooth distal tapering at the ampullary end ??? within normal limits. No intraductal filling defects or dilatation. BILIARY ANATOMY VARIANT: Right posterior hepatic duct drains into the common hepatic duct rather than joining the right anterior duct ??? classified as Williamson Type A3 (right posterior hepatic duct draining directly into the common hepatic duct), a recognized normal variant. PANCREAS: Normal morphology and signal. No ductal dilatation, mass, or peripancreatic fluid. SPLEEN: Normal in size and configuration. ADRENALS: Normal bilaterally. No nodules or thickening. KIDNEYS: Normal size and contour. No calculi, hydronephrosis, or solid renal mass. RETROPERITONEUM: No lymphadenopathy or mass. AORTA: Normal caliber and contour. No aneurysm or stenosis. BOWEL AND MESENTERY: Normal appearance. No wall thickening, obstruction, or mesenteric inflammatory change. ABDOMINAL WALL AND BONES: Unremarkable. No hernia or osseous abnormality identified. IMPRESSION: * Cholelithiasis with multiple small gallstones (3???4 mm) without evidence of cholecystitis. * Common bile duct of normal caliber (0.4 cm) with smooth distal tapering and no choledocholithiasis. * Variant biliary anatomy ??? right posterior hepatic duct draining into the common hepatic duct (Williamson Type A3 configuration). * Mild hepatic steatosis. * No pancreatic, splenic, renal, or retroperitoneal abnormality. RADIOLOGIC???CLINICAL CORRELATION: The MRCP demonstrates uncomplicated cholelithiasis with preserved biliary drainage and a normal-caliber ductal system. The identified Williamson Type A3 biliary variant holds surgical relevance, particularly for cholecystectomy or biliary interventions, as inadvertent injury to the right posterior hepatic duct can occur if unrecognized. No imaging evidence of acute inflammation or obstructive pathology. Recommend standard surgical planning and intraoperative cholangiographic confirmation if cholecystectomy is pursued. Assessment: 24-YEAR-OLD FEMALE WITH KNOWN SYMPTOMATIC CHOLELITHIASIS WHO DID NOT FOLLOW UP IN MY OFFICE WHO HAS BEEN READMITTED FOR GALLSTONE PANCREATITIS. IT SEEMS LIKE HER SYMPTOMS HAVE IMPROVED Plan: WE WILL DO A ROBOTIC CHOLECYSTECTOMY WITH CHOLANGIOGRAM TOMORROW AROUND 5:00 P.M. DISCUSSED THE NATURE OF THE PROCEDURE AND THE RISKS INCLUDING BLEEDING, INFECTION, BILE DUCT INJURY (SHE DOES HAVE A NORMAL VARIANT OF BILE DUCT ANATOMY NOTED ON PREOPERATIVE MRCP), BILE LEAK, INJURY TO SURROUNDING VISCERA AND POSSIBLE OPEN PROCEDURE. SHE IS VERY OBESE AND CARRIES A LARGE AMOUNT OF HER WEIGHT IN HER ABDOMINAL REGION AND I WOULD STRONGLY PREFER TO DO THIS ROBOTICALLY NPO AT MIDNIGHT OKAY TO HAVE CLEARS TODAY LESLEY LEE MD Jan 10, 2025 12:36
[2025-01-10 16:00] VITALS: BP 111/70; PULSE 65; RESP 18; TEMP 98
[2025-01-10 20:00] VITALS: BP 107/45; PULSE 61; RESP 20; TEMP 98.8
[2025-01-11] VITALS (29 sets, daily range): BP systolic 98–132; BP diastolic 44–78; PULSE 52–105; RESP 16–24; TEMP 97–98.9; O2SAT 98–99
[2025-01-11 05:08] LABS: IMMATURE GRANULOCYTE ABSOLUTE 0.02 K/uL (0-1); NUCLEATED RED BLOOD CELLS 0.0 % (0.0-0.19); PLATELET COUNT (AUTO) 214 K/uL (130-400); RED BLOOD CELL COUNT(AUTO) 3.86 MIL/uL (4.00-5.50); RED CELL DISTRIBUTION WIDTH 12.5 % (11.0-15.5); WHITE BLOOD COUNT (AUTO) 7.2 K/uL (4.8-10.8)
[2025-01-11 05:21] LABS: ASPARTATE AMINOTRANSFERASE 18.0 U/L (10-37); CREATININE 0.6 mg/dL (0.5-1.0); GLOMERULAR FILTR. RATE CALC 130.0 mL/min (>90); GLUCOSE,RANDOM 77.0 mg/dL (70-105); SODIUM SERUM 140.0 mmol/L (136-145); TOTAL PROTEIN, SERUM 6.2 g/dL (6.0-8.3); UREA NITROGEN, BLOOD 6.0 mg/dL (7-18)
[2025-01-11] MEDS: MAGNESIUM 2GM PREMIX 50ML 50 ML IV PRN (06:34)
--- NOTE | 2025-01-11 06:45 | NUR ---
patient with dislodge IV. IV placed at 2200 by Charge nurse hence the intake for LR is 675 for shift. Addendum: 01/11/25 at 0748 by ROBERTA FUNG RN RN Amended: Links added.
--- NOTE | 2025-01-11 09:47 | PN ---
[facility] PROGRESS NOTE Date of Service: Jan 11, 2025 Time of Service: 09:44 SUBJECTIVE: [ ] admission date: 01/09/25 PCP: self referral CC: abd pain This is a 24-year-old female presents in ED with chief complaints of abdominal pain. Onset started to 30 this morning location epigastric, duration constant radiates to mid back to right upper shoulder. Character is described as pressure and burning. Pain on arrival was 10/10. Alleviating factors none, symptoms are aggravated with p.o. intake. Associated symptoms nausea and vomiting. ER workup was consistent with acute pancreatitis. Patient was recently hospitalized a month ago for similar symptoms patient has a history of chronic Cholelithiasis. HIDA scan was done on that admission no acute cho lecystitis noted on that admission she is now here with acute pancreatitis. We will get a MRCP possible ERCP GI has been consulted. 01/10/25 patient was seen earlier patient is lying in bed patient has dull pain she remains NPO waiting for further recommendations from GI and general surgeon. 01/11/25 patient is scheduled for a lap debo today. We will follow-up postop encouraged patient early ambulation and deep breathing exercise post surgery. REVIEW OF SYSTEMS A 12 point ROS obtained all relevant positive documented otherwise ROS negative PHYSICAL EXAM GENERAL APPEARANCE: The patient is awake, alert, and oriented, in no acute cardiopulmonary distress. NEUROLOGICAL: Cranial nerves II-XII grossly intact. Motor is 5/5 in bilateral upper and lower extremities proximal to distal. No sensory deficits. HEENT: Face is symmetric. Pupils are equal and reactive. Extraocular movements are intact. NECK: Supple. No JVD. No thyromegaly. No submental, submandibular, pre- /postauricular, occipital or supraclavicular lymphadenopathy. CHEST: Normal chest expansion. No Telemetry. LUNGS: Absence of any rales, rhonchi or any wheezing. CARDIOVASCULAR: Regular. S1 and S2 normal. No appreciable rubs, murmurs or gallops. ABDOMEN: Soft, nontender, and nondistended. There is no rebound, voluntary guarding, or rigidity. : Deferred. No Perla. EXTREMITIES: Non-edematous and not cyanotic. No clubbing. Good capillary refill. SKIN: No skin breakdown. Vital Signs (last 8hr) Date Time Temp Pulse Resp B/P (MAP) Pulse Ox O2 Delivery O2 Flow Rate FiO2 01/11/25 08:00 98.1 65 19 100/57 98 Room Air 21 01/11/25 04:00 99.0 66 20 106/66 98 Room Air LABS: Laboratory: Test 01/11/25 04:41 01/10/25 09:43 Range/Units White Blood Count 7.2 # 4.8-10.8 K/uL Red Blood Count 3.86 L 4.00-5.50 MIL/uL Hemoglobin 11.6 L 12.0-16.0 g/dL Hematocrit 34.4 L 36-48 % Mean Corpuscular Volume 89.1 79-99 fL Mean Corpuscular Hemoglobin 30.1 27.0-33.0 pg Mean Corpuscular Hemoglobin Concent 33.7 32.0-36.0 g/dL Red Cell Distribution Width 12.5 11.0-15.5 % Platelet Count 214 130-400 K/uL Mean Platelet Volume 10.7 H 7.5-10.5 fL Immature Granulocyte % (Auto) 0.3 0-1 % Neutrophils (%) (Auto) 57.2 40.0-77.0 % Lymphocytes (%) (Auto) 36.1 21.0-51.0 % Monocytes (%) (Auto) 5.0 3.0-13.0 % Eosinophils (%) (Auto) 1.1 0.0-8.0 % Basophils (%) (Auto) 0.3 0.0-5.0 % Neutrophils # (Auto) 4.1 1.8-7.7 K/uL Lymphocytes # (Auto) 2.6 1.0-4.8 K/uL Monocytes # (Auto) 0.4 0.1-1.0 K/uL Eosinophils # (Auto) 0.08 0.00-0.70 K/uL Basophils # (Auto) 0.02 0.00-0.20 K/uL Absolute Immature Granulocyte (auto 0.02 0-1 K/uL Nucleated Red Blood Cells 0.0 0.0-0.19 % Sodium Level 140 136-145 mmol/L Potassium Level 3.4 L 3.5-5.1 mmol/L Chloride Level 105 101-111 mmol/L Carbon Dioxide Level 26 21-32 mmol/L Blood Urea Nitrogen 6 L 7-18 mg/dL Creatinine 0.6 0.5-1.0 mg/dL Glomerular Filtration Rate Calc 130 >90 mL/min Random Glucose 77 70-105 mg/dL Total Calcium 8.2 L 8.5-10.1 mg/dL Magnesium Level 1.80 1.80-2.40 mg/dL Total Bilirubin 0.6 0.2-1.0 mg/dL Aspartate Amino Transf (AST/SGOT) 18 10-37 U/L Alanine Aminotransferase (ALT/SGPT) 22 12-78 U/L Alkaline Phosphatase 73 50-136 U/L Total Protein 6.2 6.0-8.3 g/dL Albumin 2.9 L 3.5-5.0 g/dL Amylase Level 49 25-115 U/L Lipase 20 16-77 U/L Current Medications Medications (Trade) Dose Ordered Sig/Anaya Route PRN Reason Start Time Stop Time Status Last Admin Dose Admin Acetaminophen (TYLenol 325MG TAB) 650 mg Q4H PRN PO TEMPERATURE GREATER THAN 101.5 01/09/25 07:00 02/08/25 06:59 Famotidine (Pepcid 20mg Vial) 20 mg BID IV 01/09/25 09:00 02/08/25 08:59 01/11/25 07:56 20 MG Lactated Ringer's 1,000 ml @ 75 mls/hr [id number] IV 01/09/25 07:00 02/08/25 06:59 01/11/25 04:57 75 MLS/HR Magnesium Sulfate 50 ml @ 0 mls/hr PROTOCOL PRN IV low mag level 01/09/25 07:00 02/08/25 06:59 01/11/25 06:34 25 MLS/HR Morphine Sulfate (morPHINE 2MG SYG) 2 mg Q4H PRN IVP SEVERE PAIN (7-10) 01/09/25 07:00 01/16/25 06:59 Piperacillin Sod/ Tazobactam Sod (Zosyn 3.375gm+NS 50ml) 3.375 gm Q8H IVPB 01/09/25 07:00 01/09/25 20:21 DC 01/09/25 09:24 3.375 GM Piperacillin Sod/ Tazobactam Sod (Zosyn 3.375gm+NS 50ml) 3.375 gm Q8H IVPB 01/09/25 20:30 01/19/25 20:29 01/11/25 06:27 3.375 GM Potassium Chloride 100 ml @ 50 mls/hr AD PRN IV POTASSIUM PROTOCOL 01/09/25 07:00 02/08/25 06:59 Sodium Chloride (NS 50ml) 50 ml AD IV 01/09/25 07:00 01/09/25 07:05 DC DIAGNOSTICS / RADIOLOGY: [ ] ASSESSMENT: acute pancreatitis POA resolved Chronic Cholelithiasis, POA intractable abd pain POA morbid obesity POA PLAN: [ ] Admit: Medical-surgical floor condition: Guarded Status: Full code IVF: LR at 75 ml/hr will heplock post surgery once po is tolerates Procedure: Lap Debo today Consultants GI general surgeon Antibiotics: Zosyn 3.3 seven 5 g every 8 hours Imaging MRCP noted Labs cbc, cmp, mag+ Replace electrolytes as needed as per protocol to keep potassium above 4.0 magnesium 2.0. Pain management: Morphine 2 mg IV every 4 hours for pain Supportive measures: DVT ppx, GI ppx all questions answered Supervising MD: Dr. Huynh c/d This document was generated in part using voice recognition software, occasional wrong word or sound alike substitutions may have occurred due to the inherent limitations of voice recognition software. Read the chart carefully and recognize using context, where the substitutions have occurred. Although every effort was made to edit the content, pool manager and typing errors may occur ATTESTATION BY PHYSICIAN I have seen and examined the patient. I reviewed the documentation, medical decision making, and treatment plan as noted by the mid-level provider above. I agree with the findings and plan of care. WALLY HUYNH MD, [facility] Jan 11, 2025 09:47
[2025-01-11] MEDS: INDOCYANINE GREEN 25 MG VIAL IJ ONE ×2 (16:03→17:30)
[2025-01-11] MEDS ORDERED: IOHEXOL-350 50ML VIAL IV ONE (17:09)
[2025-01-11] MEDS ORDERED: BUPIvacaine HCL/EPINEPHrine/PF 0.25% 10ML VIAL IJ ONE (17:10)
[2025-01-11] MEDS ORDERED: MIDAZOLAM HCL 1 MG/ML 2ML VIAL ONE (17:23)
[2025-01-11] MEDS: SUGAMMADEX SODIUM 200 MG/2 ML VIAL IV ONE (19:49)
[2025-01-11] MEDS ORDERED: TRANEXAMIC ACID 1000MG/10ML ONE (19:55)
--- NOTE | 2025-01-11 20:07 | OP ---
Operative Note: DATE OF PROCEDURE: 01/11/25 SURGEON: LESLEY LEE MD MOLDER MEAT: [facility] [place] staff ANESTHESIA: General ANESTHESIOLOGIST/DEXIGRAPH OPERATOR: VINITA Del Rosario PREOPERATIVE DIAGNOSIS: Gallstone pancreatitis POSTOPERATIVE DIAGNOSIS: Gallstone pancreatitis Findings: Cholelithiasis PROCEDURE: Robotic assisted cholecystectomy with ICG immunofluorescence, at tempted intraoperative cholangiogram ESTIMATED BLOOD LOSS: 30 mL INDICATIONS: 22-year-old female patient with a known history of symptomatic cholelithiasis who was admitted with gallstone pancreatitis. Imaging studies and laboratory studies confirmed this diagnosis. A robotic cholecystectomy was indicated during this admission. Informed consent was obtained prior to the pro cedure which included a discussion about the possible risks such as bleeding, infection, bile duct injury, bile leak, and injury to surrounding viscera. We also plan to do a intraoperative cholangiogram because she had a normal variant of ductal anatomy. DESCRIPTION OF PROCEDURE: Patient was taken to the operating room placed on the operating table in supine position. Next general anesthesia was induced and the patient was intubated. There abdomen was prepped and draped in a sterile fashion. A time-out was called and the patient's identity procedure and preoperative antibiotics were confirmed. I insufflated the abdominal cavity with a Veress needle. Once a pneumoperitoneum was established I entered the abdominal cavity using a 12 mm Optiview port in the left mid abdomen. I placed three additional 8 mm ports across a straight line. I put an additional 5 mm laparoscopic port in the right upper quadrant through which I would do the intraoperative cholangiogram. The robot was docked to the patient. Pertinent findings: Cholelithiasis, marked central obesity, stiff abdominal wall and large fatty liver The gallbladder was retracted in a cephalad direction. I began to carefully dissect out the hepatic cystic triangle. I used ICG green immunofluorescence to confirm ductal anatomy. I attempted to do an intraoperative cholangiogram with a Wilkerson clamp however after a couple attempts the catheter tip kept going through the back wall of the infundibulum and proximal cystic duct. At this time I decided to abort that part of the operation. The critical view was established. I identified the cystic artery. This was clipped and divided. The cystic duct was identified. This was clipped and divided. I then cauterized the gallbladder off the liver fossa bed. I checked the liver bed for bleeding. Hemostasis was obtained with electrocautery and packing. The gallbladder was placed in a specimen bag and removed from the abdominal cavity. I closed the fascia of the 12 mm port with a 1-0 Vicryl suture on a Kaveh- Yesy closure device. The pneumoperitoneum was evacuated. Skin incisions were closed with eugene. Sterile dressings were applied. Sponge needle instrument counts were accurate. Patient's anesthesia was reversed and they were extubated and taken to recovery room in stable condition. LESLEY LEE MD Jan 11, 2025 20:07
[2025-01-11] MEDS ORDERED: PROMETHAZINE HCL 25 MG/ML 1ML AMPULE IM PRN (20:30)
[2025-01-11] MEDS: SIMETHICONE 80 MG TAB.CHEW PO SCH (21:42)
[2025-01-12] VITALS (11 sets, daily range): BP systolic 101–142; BP diastolic 52–86; PULSE 85–101; RESP 16–19; TEMP 97.5–98.6; O2SAT 95–98
[2025-01-12 04:55] LABS: IMMATURE GRANULOCYTE ABSOLUTE 0.04 K/uL (0-1); NUCLEATED RED BLOOD CELLS 0.0 % (0.0-0.19); PLATELET COUNT (AUTO) 245 K/uL (130-400); RED BLOOD CELL COUNT(AUTO) 4.09 MIL/uL (4.00-5.50); RED CELL DISTRIBUTION WIDTH 12.2 % (11.0-15.5); WHITE BLOOD COUNT (AUTO) 10.0 K/uL (4.8-10.8)
[2025-01-12 05:30] LABS: ASPARTATE AMINOTRANSFERASE 40.0 U/L (10-37); CREATININE 0.7 mg/dL (0.5-1.0); GLOMERULAR FILTR. RATE CALC 125.0 mL/min (>90); GLUCOSE,RANDOM 133.0 mg/dL (70-105); SODIUM SERUM 136.0 mmol/L (136-145); TOTAL PROTEIN, SERUM 7.1 g/dL (6.0-8.3); UREA NITROGEN, BLOOD 6.0 mg/dL (7-18)
[2025-01-12] MEDS: LIDOCAINE 4% ADH..PATCH TP SCH (08:48)
[2025-01-12] MEDS ORDERED: AMOX1TAB16 PO (10:16)
--- NOTE | 2025-01-12 10:18 | DS ---
Discharge Summary Hospital Course Summary: admission date: 01/09/25 PCP: self referral CC: abd pain This is a 24-year-old female presents in ED with chief complaints of abdominal pain. Onset started to 30 this morning location epigastric, duration constant radiates to mid back to right upper shoulder. Character is described as pressure and burning. Pain on arrival was 10/10. Alleviating factors none, symptoms are aggravated with p.o. intake. Associated symptoms nausea and vomiting. ER workup was consistent with acute pancreatitis. Patient was recently hospitalized a month ago for similar symptoms patient has a history of chronic Cholelithiasis. HIDA scan was done on that admission no acute cholecystitis noted on that admission she is now here with acute pancreatitis. We will get a MRCP possible ERCP GI has been consulted. 01/10/25 patient was seen earlier patient is lying in bed patient has dull pain she remains NPO waiting for further recommendations from GI and general surgeon. 01/11/25 patient is scheduled for a lap debo today. We will follow-up postop encouraged patient early ambulation and deep breathing exercise post surgery. 01/12/25 was seen earlier patient is clinically and hemodynamically stable for discharge status post lap debo postop day one. Tolerating diet ++ flautus encourage patient to continue ambulating at home continue with pain management with [id number] Tylenol. Patient will be discharged on oral antibiotics as directed. All questions and concerns addressed advised patient no heavy lifting greater than 10 lb for four weeks and to keep incisions clean and dry wash with soap and water, diet GI soft avoid greasy foods. Instructional Technology Facilitator(s): REASON: Adominal Pain ORDERING PHYSICIAN: MARÍA ELENA HAMLIN DO PROCEDURE: [id number] - US ABDOMINAL RUQ\LTD EXAM: US Abdomen, Right Upper Quadrant. CLINICAL HISTORY: Adominal Pain TECHNIQUE: Right upper quadrant sonography performed with image documentation. COMPARISON: [place] HIDA scan dated 12/10/2024. CT abdomen and pelvis dated 12/08/2024. FINDINGS: LIVER: Within normal limits in size (15.2 cm) and shows raised echogenicity. No mass. GALLBLADDER: The gallbladder appears normal. No gallbladder wall thickening (0.3 cm) seen. Mobile calculi seen. COMMON BILE DUCT: Within normal limits in size (0.4 cm). PANCREAS: The visualized portion of the pancreas appears within normal limits. RIGHT KIDNEY: Unremarkable (10.6 x 4.4 x 4.1 cm). Normal renal contours. No renal mass or calculus. No hydronephrosis. IMPRESSION: Cholelithiasis. No evidence of cholecystitis. Hepatic steatosis. REASON: bilary stontes ORDERING PHYSICIAN: JAS ORTEGA PROCEDURE: MRCP WO - MRCP(ABDWO)CHOLANGIOPANCREATOG ADDENDUM REPORT ADDENDUM: Results were shared by telephone at 00:37 am on 01-10-25 and acknowledged by the Nurse Ms. Nolasco Reagan /[place] EXAM: MR Cholangiopancreatography (MRCP). CLINICAL HISTORY: Cholelithiasis with prior sonographic and CT evidence of gallstones and hepatic steatosis. Evaluation for biliary tree anatomy and complications. TECHNIQUE: Multiplanar and multisequence MRCP images were obtained without intravenous contrast, utilizing heavily T2-weighted sequences optimized for biliary and pancreatic ductal evaluation. COMPARISON: Ultrasound abdomen dated 01/09/2025. CT abdomen (non-contrast) dated 01/07/2025. FINDINGS: LIVER: Normal size and contour. Mild background hepatic steatosis. No focal hepatic lesion identified. GALLBLADDER AND BILIARY SYSTEM: Multiple small hypointense filling defects measuring 3???4 mm within the gallbladder lumen, consistent with multiple gallstones. No pericholecystic fluid or wall edema to suggest cholecystitis. Gallbladder neck and cystic duct are patent. Common bile duct (CBD) measures 0.4 cm in diameter with smooth distal tapering at the ampullary end ??? within normal limits. No intraductal filling defects or dilatation. BILIARY ANATOMY VARIANT: Right posterior hepatic duct drains into the common hepatic duct rather than joining the right anterior duct ??? classified as Williamson Type A3 (right posterior hepatic duct draining directly into the common hepatic duct), a recognized normal variant. PANCREAS: Normal morphology and signal. No ductal dilatation, mass, or peripancreatic fluid. SPLEEN: Normal in size and configuration. ADRENALS: Normal bilaterally. No nodules or thickening. KIDNEYS: Normal size and contour. No calculi, hydronephrosis, or solid renal mass. RETROPERITONEUM: No lymphadenopathy or mass. AORTA: Normal caliber and contour. No aneurysm or stenosis. BOWEL AND MESENTERY: Normal appearance. No wall thickening, obstruction, or mesenteric inflammatory change. ABDOMINAL WALL AND BONES: Unremarkable. No hernia or osseous abnormality identified. IMPRESSION: * Cholelithiasis with multiple small gallstones (3???4 mm) without evidence of cholecystitis. * Common bile duct of normal caliber (0.4 cm) with smooth distal tapering and no choledocholithiasis. * Variant biliary anatomy ??? right posterior hepatic duct draining into the common hepatic duct (Williamson Type A3 configuration). * Mild hepatic steatosis. * No pancreatic, splenic, renal, or retroperitoneal abnormality. RADIOLOGIC???CLINICAL CORRELATION: The MRCP demonstrates uncomplicated cholelithiasis with preserved biliary drainage and a normal-caliber ductal system. The identified Williamson Type A3 biliary variant holds surgical relevance, particularly for cholecystectomy or biliary interventions, as inadvertent injury to the right posterior hepatic duct can occur if unrecognized. No imaging evidence of acute inflammation or obstructive pathology. Recommend standard surgical planning and intraoperative cholangiographic confirmation if cholecystectomy is pursued. Procedure(s): Operative Note: DATE OF PROCEDURE: 01/11/25 SURGEON: LESLEY VALADEZ MD UNDERWRITING CONSULTANT: [facility] [place] staff ANESTHESIA: General ANESTHESIOLOGIST/TELECOMMUNICATIONS LINE INSTALLER: VINITA Del Rosario PREOPERATIVE DIAGNOSIS: Gallstone pancreatitis POSTOPERATIVE DIAGNOSIS: Gallstone pancreatitis Findings: Cholelithiasis PROCEDURE: Robotic assisted cholecystectomy with ICG immunofluorescence, attempted intraoperative cholangiogram ESTIMATED BLOOD LOSS: 30 mL INDICATIONS: 22-year-old female patient with a known history of symptomatic cholelithiasis who was admitted with gallstone pancreatitis. Imaging studies and laboratory studies confirmed this diagnosis. A robotic cholecystectomy was indicated during this admission. Informed consent was obtained prior to the procedure which included a discussion about the possible risks such as bleeding, infection, bile duct injury, bile leak, and injury to surrounding viscera. We also plan to do a intraoperative cholangiogram because she had a normal variant of ductal anatomy. DESCRIPTION OF PROCEDURE: Patient was taken to the operating room placed on the operating table in supine position. Next general anesthesia was induced and the patient was intubated. There abdomen was prepped and draped in a sterile fashion. A time-out was called and the patient's identity procedure and preoperative antibiotics were confirmed. I insufflated the abdominal cavity with a Veress needle. Once a pneumoperitoneum was established I entered the abdominal cavity using a 12 mm Optiview port in the left mid abdomen. I placed three additional 8 mm ports across a straight line. I put an additional 5 mm laparoscopic port in the right upper quadrant through which I would do the intraoperative cholangiogram. The robot was docked to the patient. Pertinent findings: Cholelithiasis, marked central obesity, stiff abdominal wall and large fatty liver The gallbladder was retracted in a cephalad direction. I began to carefully dissect out the hepatic cystic triangle. I used ICG green immunofluorescence to confirm ductal anatomy. I attempted to do an intraoperative cholangiogram with a Wilkerson clamp however after a couple attempts the catheter tip kept going through the back wall of the infundibulum and proximal cystic duct. At this time I decided to abort that part of the operation. The critical view was established. I identified the cystic artery. This was clipped and divided. The cystic duct was identified. This was clipped and divided. I then cauterized the gallbladder off the liver fossa bed. I checked the liver bed for bleeding. Hemostasis was obtained with electrocautery and packing. The gallbladder was placed in a specimen bag and removed from the abdominal cavity. I closed the fascia of the 12 mm port with a 1-0 Vicryl suture on a Kaveh- Yesy closure device. The pneumoperitoneum was evacuated. Skin incisions were closed with eugene. Sterile dressings were applied. Sponge needle instrument counts were accurate. Patient's anesthesia was reversed and they were extubated and taken to recovery room in stable condition. JESUSMARCH Michel LANDRY Jan 11, 2025 20:07 Assessment/Plan: Discharged dx's: acute pancreatitis POA resolved Chronic Cholelithiasis, POA s/p Lap debo intractable abd pain POA resolved morbid obesity POA weight management: Five dilated and exercise. Mild hepatic steatosis. Avoid greasy foods saturated fats. PLAN: [ ] ADMISSION DATE: 01/10/25 DISCHARGE DATE: 01/12/25 DISPOSITION: home CONDITION: stable TUB RIDER(S): general surgeon, GI FOLLOW UP APPOINTMENT(S): DR Valadez one wk PROCEDURES: Robotic assisted cholecystectomy with ICG immunofluorescence, IMAGING (S) report attached to summary : MICROBIOLOGY: report attached to summary; ACTIVITY: ab mary HOME MEDICATIONS none profile NEW MEDICATIONS augmentin 875/125 mg po bid for 7 days. TEACHING: Avoid heavy lifting greater than 10 lb keep incisions clean and dry signs and symptoms incision infection. Emergency instructions: The patient was instructed to present to the nearest Emergency Department or call 911 should their symptoms return or worsen. New Medications: Amoxicillin/Potassium Clav (Amox Tr-K Clv 875-125 mg Tab) 875 Mg-125 Mg Tablet 1 TAB PO BID for 7 Days, #14 TAB 0 Refills Time spent arranging discharge: 31-60 minutes ATTESTATION BY PHYSICIAN I have seen and examined the patient. I reviewed the documentation, medical decision making, and treatment plan as noted by the mid-level provider above. I agree with the findings and plan of care. WALLY HUYNH MD, [facility] Jan 12, 2025 10:18
--- NOTE | 2025-01-12 17:18 | PN ---
This is a 24-year-old female postop day one for robotic cholecystectomy Interval history: This 24-year-old female seen in her room resting Patient with a expected incisional discomfort Patient has not passed gas but tolerating full liquids No other acute events reported at this time Labs and vitals stable Physical exam General: [Awake alert and oriented] Heart: [Regular rate and rhythm} Lungs: [Clear to auscultation no distress] Abdomen: [Soft, nontender, nondistended] Assessment : This is a 24-year-old female status post cholecystectomy Plan: From surgical standpoint once patient is passing gas she is cleared from surgical standpoint for discharge home Patient to start on Gas-X Patient to avoid heavy lifting Void spicy greasy meals Patient to follow up in two weeks if cleared for discharge today Dr. Cruz to be updated in patient's status and nursing report any further acute events Surgical case has been discussed with my supervising physician in the above plan was formulated and agreed upon We appreciate the hospitalist team for us to participate in patient's care. Greater than 45 minutes of time spent patient, reviewing chart, working on documentation Vitals/Labs Vital Signs Date Time Temp Pulse Resp B/P (MAP) Pulse Ox O2 Delivery O2 Flow Rate FiO2 01/12/25 15:56 98.2 90 18 129/86 92 Room Air 01/12/25 08:00 0 21 Laboratory Tests 01/12/25 04:37 Medications Current Medications Lactated Ringer's 1,000 ml @ 0 mls/hr ONCE ONCE IV Last administered on 01/09/25at 05:28; Start 01/09/25 at 05:30; Stop 01/09/25 at 05:31; Status DC Acetaminophen 650 mg ONCE ONCE PO Last administered on 01/09/25at 05:29; Start 01/09/25 at 05:30; Stop 01/09/25 at 05:31; Status DC Ketorolac Tromethamine 15 mg ONCE ONCE IV Last administered on 01/09/25at 05:43; Start 01/09/25 at 05:30; Stop 01/09/25 at 05:31; Status DC Morphine Sulfate 2 mg ONCE ONCE IVP Last administered on 01/09/25at 05:43; Start 01/09/25 at 05:30; Stop 01/09/25 at 05:31; Status DC Ondansetron HCl 4 mg ONCE ONCE IVP Last administered on 01/09/25at 05:28; Start 01/09/25 at 05:30; Stop 01/09/25 at 05:31; Status DC Al Hydroxide/Mg Hydroxide 30 ml ONCE ONCE PO Last administered on 01/09/25at 05:28; Start 01/09/25 at 05:30; Stop 01/09/25 at 05:31; Status DC Dicyclomine HCl 10 mg ONCE ONCE PO Last administered on 01/09/25at 05:28; Start 01/09/25 at 05:30; Stop 01/09/25 at 05:31; Status DC Lactated Ringer's 1,000 ml @ 75 mls/hr [id number] IV Last administered on 01/12/25at 08:15; Start 01/09/25 at 07:00; Stop 02/08/25 at 06:59 Acetaminophen 650 mg Q4H PRN PO; Start 01/09/25 at 07:00; Stop 02/08/25 at 06:59 Morphine Sulfate 2 mg Q4H PRN IVP; Start 01/09/25 at 07:00; Stop 01/16/25 at 06:59 Famotidine 20 mg BID IV Last administered on 01/12/25at 08:49; Start 01/09/25 at 09:00; Stop 02/08/25 at 08:59 Piperacillin Sod/ Tazobactam Sod 3.375 gm Q8H IVPB Last administered on 01/09/25at 09:24; Start 01/09/25 at 07:00; Stop 01/09/25 at 20:21; Status DC Sodium Chloride 50 ml AD IV; Start 01/09/25 at 07:00; Stop 01/09/25 at 07:05; Status DC Magnesium Sulfate 50 ml @ 0 mls/hr PROTOCOL PRN IV Last administered on 01/12/25at 08:52; Start 01/09/25 at 07:00; Stop 02/08/25 at 06:59 Potassium Chloride 100 ml @ 50 mls/hr AD PRN IV; Start 01/09/25 at 07:00; Stop 02/08/25 at 06:59 Piperacillin Sod/ Tazobactam Sod 3.375 gm Q8H IVPB Last administered on 01/12/25at 13:00; Start 01/09/25 at 20:30; Stop 01/19/25 at 20:29 Potassium Chloride 100 ml @ 50 mls/hr ONCE ONCE IV Last administered on 01/11/25at 12:18; Start 01/11/25 at 10:00; Stop 01/11/25 at 11:59; Status DC Indocyanine Green 25 mg STK-MED ONCE IJ; Start 01/11/25 at 16:03; Stop 01/11/25 at 16:02; Status DC Iohexol 50 ml STK-MED ONCE IV; Start 01/11/25 at 17:09; Stop 01/11/25 at 17:09; Status DC Bupivacaine HCl/ Epinephrine Bitart 10 ml STK-MED ONCE IJ; Start 01/11/25 at 17:10; Stop 01/11/25 at 17:10; Status DC Propofol 200 mg STK-MED ONCE IV; Start 01/11/25 at 17:23; Stop 01/11/25 at 17:23; Status DC Midazolam HCl 2 mg STK-MED ONCE .ROUTE; Start 01/11/25 at 17:23; Stop 01/11/25 at 17:23; Status DC Rocuronium [place] 50 mg STK-MED ONCE .ROUTE; Start 01/11/25 at 17:23; Stop 01/11/25 at 17:23; Status DC Fentanyl Citrate 100 mcg STK-MED ONCE .ROUTE; Start 01/11/25 at 17:23; Stop 01/11/25 at 17:23; Status DC Ropivacaine 150 mg STK-MED ONCE .ROUTE; Start 01/11/25 at 17:25; Stop 01/11/25 at 17:25; Status DC Ketamine HCl 50 mg STK-MED ONCE .ROUTE; Start 01/11/25 at 17:34; Stop 01/11/25 at 17:34; Status DC Ondansetron HCl 4 mg STK-MED ONCE .ROUTE; Start 01/11/25 at 17:57; Stop 01/11/25 at 17:57; Status DC Rocuronium [place] 50 mg STK-MED ONCE .ROUTE; Start 01/11/25 at 18:16; Stop 01/11/25 at 18:16; Status DC Fentanyl Citrate 250 mcg STK-MED ONCE IV; Start 01/11/25 at 19:17; Stop 01/11/25 at 19:17; Status DC Indocyanine Green 25 mg STK-MED ONCE IJ Last administered on 01/11/25at 17:30; Start 01/11/25 at 17:30; Stop 01/11/25 at 19:42; Status DC Tranexamic Acid 1,000 mg STK-MED ONCE .ROUTE; Start 01/11/25 at 19:55; Stop 01/11/25 at 19:55; Status DC Simethicone 80 mg QID PO Last administered on 01/12/25at 13:07; Start 01/11/25 at 21:00; Stop 02/10/25 at 20:59 Tramadol HCl 50 mg Q4H PRN PO Last administered on 01/12/25at 13:01; Start 01/11/25 at 20:30; Stop 01/16/25 at 20:29 Lidocaine 1 each DAILY TP Last administered on 01/12/25at 08:48; Start 01/12/25 at 09:00; Stop 02/11/25 at 08:59 Ondansetron HCl 4 mg AD PRN IVP; Start 01/11/25 at 20:30; Stop 01/11/25 at 21:42; Status DC Metoclopramide HCl 10 mg AD PRN IVP; Start 01/11/25 at 20:30; Stop 01/11/25 at 21:42; Status DC Promethazine HCl 25 mg AD PRN IM; Start 01/11/25 at 20:30; Stop 01/11/25 at 21:42; Status DC Ketorolac Tromethamine 30 mg AD PRN IV; Start 01/11/25 at 20:30; Stop 01/11/25 at 21:42; Status DC Morphine Sulfate 2 mg AD PRN IVP; Start 01/11/25 at 20:30; Stop 01/11/25 at 21:42; Status DC Fentanyl Citrate 25 mcg Q5MIN PRN IVP; Start 01/11/25 at 20:30; Stop 01/11/25 at 21:42; Status DC Naloxone HCl 0.1 mg AD PRN IVP; Start 01/11/25 at 20:30; Stop 01/11/25 at 21:42; Status DC Fentanyl Citrate 100 mcg STK-MED ONCE .ROUTE; Start 01/11/25 at 20:13; Stop 01/11/25 at 20:13; Status DC Morphine Sulfate 4 mg STK-MED ONCE .ROUTE Last administered on 01/11/25at 21:09; Start 01/11/25 at 20:55; Stop 01/11/25 at 20:55; Status DC Acetaminophen 100 ml @ As Directed STK-MED ONCE .ROUTE Last administered on 01/11/25at 21:06; Start 01/11/25 at 20:56; Stop 01/11/25 at 20:56; Status DC ORALIA DON Jr. PAC Jan 12, 2025 17:18
[2025-01-13] VITALS (7 sets, daily range): BP systolic 110–132; BP diastolic 63–83; PULSE 69–81; RESP 17–18; TEMP 97.8–98.3; O2SAT 95–97
--- NOTE | 2025-01-13 10:29 | PN ---
Postop day two after laparoscopic cholecystectomy by Dr. Valadez. Pain controlled. No nausea no vomiting. Tolerating her diet. Incisions are clean dry and intact. Patient not passing gas yet. Patient needs to get up and ambulate. If passing gas later today okay to be discharge by the end of the day. Follow up with Dr. Valadez in a week Vitals/Labs Vital Signs Date Time Temp Pulse Resp B/P (MAP) Pulse Ox O2 Delivery O2 Flow Rate FiO2 01/13/25 07:31 98.2 69 17 116/81 95 Room Air 21 01/12/25 20:00 0 Medications Current Medications Lactated Ringer's 1,000 ml @ 0 mls/hr ONCE ONCE IV Last administered on 01/09/25at 05:28; Start 01/09/25 at 05:30; Stop 01/09/25 at 05:31; Status DC Acetaminophen 650 mg ONCE ONCE PO Last administered on 01/09/25at 05:29; Start 01/09/25 at 05:30; Stop 01/09/25 at 05:31; Status DC Ketorolac Tromethamine 15 mg ONCE ONCE IV Last administered on 01/09/25at 05:43; Start 01/09/25 at 05:30; Stop 01/09/25 at 05:31; Status DC Morphine Sulfate 2 mg ONCE ONCE IVP Last administered on 01/09/25at 05:43; Start 01/09/25 at 05:30; Stop 01/09/25 at 05:31; Status DC Ondansetron HCl 4 mg ONCE ONCE IVP Last administered on 01/09/25at 05:28; Start 01/09/25 at 05:30; Stop 01/09/25 at 05:31; Status DC Al Hydroxide/Mg Hydroxide 30 ml ONCE ONCE PO Last administered on 01/09/25at 05:28; Start 01/09/25 at 05:30; Stop 01/09/25 at 05:31; Status DC Dicyclomine HCl 10 mg ONCE ONCE PO Last administered on 01/09/25at 05:28; Start 01/09/25 at 05:30; Stop 01/09/25 at 05:31; Status DC Lactated Ringer's 1,000 ml @ 75 mls/hr [id number] IV Last administered on 01/13/25at 09:08; Start 01/09/25 at 07:00; Stop 02/08/25 at 06:59 Acetaminophen 650 mg Q4H PRN PO; Start 01/09/25 at 07:00; Stop 02/08/25 at 06:59 Morphine Sulfate 2 mg Q4H PRN IVP; Start 01/09/25 at 07:00; Stop 01/16/25 at 06:59 Famotidine 20 mg BID IV Last administered on 01/13/25at 09:01; Start 01/09/25 at 09:00; Stop 02/08/25 at 08:59 Piperacillin Sod/ Tazobactam Sod 3.375 gm Q8H IVPB Last administered on 01/09/25at 09:24; Start 01/09/25 at 07:00; Stop 01/09/25 at 20:21; Status DC Sodium Chloride 50 ml AD IV; Start 01/09/25 at 07:00; Stop 01/09/25 at 07:05; Status DC Magnesium Sulfate 50 ml @ 0 mls/hr PROTOCOL PRN IV Last administered on 01/12/25at 08:52; Start 01/09/25 at 07:00; Stop 02/08/25 at 06:59 Potassium Chloride 100 ml @ 50 mls/hr AD PRN IV; Start 01/09/25 at 07:00; Stop 02/08/25 at 06:59 Piperacillin Sod/ Tazobactam Sod 3.375 gm Q8H IVPB Last administered on 01/13/25at 05:24; Start 01/09/25 at 20:30; Stop 01/19/25 at 20:29 Potassium Chloride 100 ml @ 50 mls/hr ONCE ONCE IV Last administered on 01/11/25at 12:18; Start 01/11/25 at 10:00; Stop 01/11/25 at 11:59; Status DC Indocyanine Green 25 mg STK-MED ONCE IJ; Start 01/11/25 at 16:03; Stop 01/11/25 at 16:02; Status DC Iohexol 50 ml STK-MED ONCE IV; Start 01/11/25 at 17:09; Stop 01/11/25 at 17:09; Status DC Bupivacaine HCl/ Epinephrine Bitart 10 ml STK-MED ONCE IJ; Start 01/11/25 at 17:10; Stop 01/11/25 at 17:10; Status DC Propofol 200 mg STK-MED ONCE IV; Start 01/11/25 at 17:23; Stop 01/11/25 at 1 7:23; Status DC Midazolam HCl 2 mg STK-MED ONCE .ROUTE; Start 01/11/25 at 17:23; Stop 01/11/25 at 17:23; Status DC Rocuronium [place] 50 mg STK-MED ONCE .ROUTE; Start 01/11/25 at 17:23; Stop 01/11/25 at 17:23; Status DC Fentanyl Citrate 100 mcg STK-MED ONCE .ROUTE; Start 01/11/25 at 17:23; Stop 01/11/25 at 17:23; Status DC Ropivacaine 150 mg STK-MED ONCE .ROUTE; Start 01/11/25 at 17:25; Stop 01/11/25 at 17:25; Status DC Ketamine HCl 50 mg STK-MED ONCE .ROUTE; Start 01/11/25 at 17:34; Stop 01/11/25 at 17:34; Status DC Ondansetron HCl 4 mg STK-MED ONCE .ROUTE; Start 01/11/25 at 17:57; Stop 01/11/25 at 17:57; Status DC Rocuronium [place] 50 mg STK-MED ONCE .ROUTE; Start 01/11/25 at 18:16; Stop 01/11/25 at 18:16; Status DC Fentanyl Citrate 250 mcg STK-MED ONCE IV; Start 01/11/25 at 19:17; Stop 01/11/25 at 19:17; Status DC Indocyanine Green 25 mg STK-MED ONCE IJ Last administered on 01/11/25at 17:30; Start 01/11/25 at 17:30; Stop 01/11/25 at 19:42; Status DC Tranexamic Acid 1,000 mg STK-MED ONCE .ROUTE; Start 01/11/25 at 19:55; Stop 01/11/25 at 19:55; Status DC Simethicone 80 mg QID PO Last administered on 01/13/25at 09:01; Start 01/11/25 at 21:00; Stop 02/10/25 at 20:59 Tramadol HCl 50 mg Q4H PRN PO Last administered on 01/13/25at 00:32; Start 01/11/25 at 20:30; Stop 01/16/25 at 20:29 Lidocaine 1 each DAILY TP Last administered on 01/13/25at 09:01; Start 01/12/25 at 09:00; Stop 02/11/25 at 08:59 Ondansetron HCl 4 mg AD PRN IVP; Start 01/11/25 at 20:30; Stop 01/11/25 at 21:42; Status DC Metoclopramide HCl 10 mg AD PRN IVP; Start 01/11/25 at 20:30; Stop 01/11/25 at 21:42; Status DC Promethazine HCl 25 mg AD PRN IM; Start 01/11/25 at 20:30; Stop 01/11/25 at 21:42; Status DC Ketorolac Tromethamine 30 mg AD PRN IV; Start 01/11/25 at 20:30; Stop 01/11/25 at 21:42; Status DC Morphine Sulfate 2 mg AD PRN IVP; Start 01/11/25 at 20:30; Stop 01/11/25 at 21:42; Status DC Fentanyl Citrate 25 mcg Q5MIN PRN IVP; Start 01/11/25 at 20:30; Stop 01/11/25 at 21:42; Status DC Naloxone HCl 0.1 mg AD PRN IVP; Start 01/11/25 at 20:30; Stop 01/11/25 at 21:42; Status DC Fentanyl Citrate 100 mcg STK-MED ONCE .ROUTE; Start 01/11/25 at 20:13; Stop 01/11/25 at 20:13; Status DC Morphine Sulfate 4 mg STK-MED ONCE .ROUTE Last administered on 01/11/25at 21:09; Start 01/11/25 at 20:55; Stop 01/11/25 at 20:55; Status DC Acetaminophen 100 ml @ As Directed STK-MED ONCE .ROUTE Last administered on 01/11/25at 21:06; Start 01/11/25 at 20:56; Stop 01/11/25 at 20:56; Status DC BAILEY PIERRE MD Jan 13, 2025 10:28
--- NOTE | 2025-01-13 11:54 | HMCIMG ---
Exam: Abdominal radiograph-frontal view Clinical Indication: Recent abdominal surgery; rule out postoperative ileus Comparison: MRCP dated January 09, 2025 Findings: Postsurgical Changes: Surgical clips are seen in the mid-abdomen, consistent with prior surgical intervention. Bowel Gas Pattern: There are a few prominent, gas-filled small and large bowel loops, consistent with postoperative ileus. No definite transition point or features suggestive of mechanical bowel obstruction are seen. Free Air: No evidence of pneumoperitoneum. Other Findings: No abnormal calcifications or other radiopaque foreign bodies are identified. Impression: 1. Interval development of gaseous distention of small and large bowel loops since MRCP dated January 09, 2025, findings consistent with postoperative ileus. 2. No radiographic evidence of bowel obstruction or pneumoperitoneum. /[place]
[2025-01-13] MEDS ORDERED: DIPHENHYDRAMINE HCL 50 MG CAPSULE PO ONE (18:00)
[2025-01-14] VITALS: BP 123/74; PULSE 85; RESP 18; TEMP 98.2
[2025-01-14 04:00] VITALS: BP 131/64; PULSE 79; RESP 18; TEMP 98.1
[2025-01-14 07:45] VITALS: BP 129/69; PULSE 81; RESP 18; TEMP 98
--- NOTE | 2025-01-14 08:05 | PN ---
[facility] PROGRESS NOTE Date of Service: Jan 14, 2025 Time of Service: 08:00 SUBJECTIVE: [ ] admission date: 01/09/25 PCP: self referral CC: abd pain This is a 24-year-old female presents in ED with chief complaints of abdominal pain. Onset started to 30 this morning location epigastric, duration constant radiates to mid back to right upper shoulder. Character is described as pressure and burning. Pain on arrival was 10/10. Alleviating factors none, symptoms are aggravated with p.o. intake. Associated symptoms nausea and vomiting. ER workup was consistent with acute pancreatitis. Patient was recently hospitalized a month ago for similar symptoms patient has a history of chronic Cholelithiasis. HIDA scan was done on that admission no acute chol ecystitis noted on that admission she is now here with acute pancreatitis. We will get a MRCP possible ERCP GI has been consulted. 01/10/25 patient was seen earlier patient is lying in bed patient has dull pain she remains NPO waiting for further recommendations from GI and general surgeon. 01/11/25 patient is scheduled for a lap debo today. We will follow-up postop encouraged patient early ambulation and deep breathing exercise post surgery. 01/12/25 Late entry The patient was not discharged: unable to pass gas she is belching ,s/p Lap Debo day 1 no fever no chill REVIEW OF SYSTEMS A 12 point ROS obtained all relevant positive documented otherwise ROS negative PHYSICAL EXAM GENERAL APPEARANCE: The patient is awake, alert, and oriented, in no acute cardiopulmonary distress. NEUROLOGICAL: Cranial nerves II-XII grossly intact. Motor is 5/5 in bilateral upper and lower extremities proximal to distal. No sensory deficits. HEENT: Face is symmetric. Pupils are equal and reactive. Extraocular movements are intact. NECK: Supple. No JVD. No thyromegaly. No submental, submandibular, pre- /postauricular, occipital or supraclavicular lymphadenopathy. CHEST: Normal chest expansion. No Telemetry. LUNGS: Absence of any rales, rhonchi or any wheezing. CARDIOVASCULAR: Regular. S1 and S2 normal. No appreciable rubs, murmurs or gallops. ABDOMEN: Soft, nontender, and nondistended. There is no rebound, voluntary guarding, or rigidity. : Deferred. No Perla. EXTREMITIES: Non-edematous and not cyanotic. No clubbing. Good capillary refill. SKIN: No skin breakdown. Vital Signs (last 8hr) Date Time Temp Pulse Resp B/P (MAP) Pulse Ox O2 Delivery O2 Flow Rate FiO2 01/14/25 07:45 98.1 81 18 129/69 98 Room Air 21 01/14/25 04:00 98.1 79 18 131/64 95 Room Air LABS: Current Medications Medications (Trade) Dose Ordered Sig/Anaya Route PRN Reason Start Time Stop Time Status Last Admin Dose Admin Acetaminophen (TYLenol 325MG TAB) 650 mg Q4H PRN PO TEMPERATURE GREATER THAN 101.5 01/09/25 07:00 02/08/25 06:59 Docusate Sodium (COLace 100MG CAP) 100 mg TID PO 01/13/25 21:00 02/12/25 12:29 01/13/25 20:58 100 MG Docusate Sodium (COLace 100MG CAP) 100 mg TID PRN PO CONSTIPATION 01/13/25 12:30 01/13/25 18:27 DC 01/13/25 13:15 100 MG Famotidine (Pepcid 20mg Vial) 20 mg BID IV 01/09/25 09:00 02/08/25 08:59 01/13/25 20:58 20 MG Fentanyl Citrate (FENTanyl CITRate PF 50 MCG/ 1 ML 2ML VIAL) 25 mcg Q5MIN PRN IVP PAIN LEVEL 7 TO 10 01/11/25 20:30 01/11/25 21:42 DC Ketorolac Tromethamine (toRADol) 30 mg AD PRN IV PAIN LEVEL 1 TO 3 01/11/25 20:30 01/11/25 21:42 DC Lactated Ringer's 1,000 ml @ 75 mls/hr [id number] IV 01/09/25 07:00 02/08/25 06:59 01/13/25 09:08 75 MLS/HR Lidocaine (Lidocaine Patch 4%) 1 each DAILY TP 01/12/25 09:00 02/11/25 08:59 01/13/25 09:01 1 EACH Magnesium Sulfate 50 ml @ 0 mls/hr PROTOCOL PRN IV low mag level 01/09/25 07:00 02/08/25 06:59 01/12/25 08:52 20 MLS/HR Metoclopramide HCl (regLAN 10MG IV) 10 mg AD PRN IVP NAUSEA/VOMITING 01/11/25 20:30 01/11/25 21:42 DC Morphine Sulfate (morPHINE 2MG SYG) 2 mg AD PRN IVP PAIN LEVEL 4 TO 6 01/11/25 20:30 01/11/25 21:42 DC Morphine Sulfate (morPHINE 2MG SYG) 2 mg Q4H PRN IVP SEVERE PAIN (7-10) 01/09/25 07:00 01/16/25 06:59 Naloxone HCl (NARcan 0.4mg/1 mL) 0.1 mg AD PRN IVP RESPIRATORY SYMPTOMS 01/11/25 20:30 01/11/25 21:42 DC Ondansetron HCl (zoFRAN 4MG INJ) 4 mg AD PRN IVP NAUSEA/VOMITING 01/11/25 20:30 01/11/25 21:42 DC Piperacillin Sod/ Tazobactam Sod (Zosyn 3.375gm+NS 50ml) 3.375 gm Q8H IVPB 01/09/25 07:00 01/09/25 20:21 DC 01/09/25 09:24 3.375 GM Piperacillin Sod/ Tazobactam Sod (Zosyn 3.375gm+NS 50ml) 3.375 gm Q8H IVPB 01/09/25 20:30 01/19/25 20:29 01/14/25 05:31 3.375 GM Potassium Chloride 100 ml @ 50 mls/hr AD PRN IV POTASSIUM PROTOCOL 01/09/25 07:00 02/08/25 06:59 Promethazine HCl (Phenergan) 25 mg AD PRN IM NAUSEA/VOMITING 01/11/25 20:30 01/11/25 21:42 DC Simethicone (Mylicon) 80 mg QID PO 01/11/25 21:00 02/10/25 20:59 01/13/25 20:58 80 MG Sodium Chloride (NS 50ml) 50 ml AD IV 01/09/25 07:00 01/09/25 07:05 DC Tramadol HCl (UltRAM) 50 mg Q4H PRN PO MODERATE PAIN (4-6) 01/11/25 20:30 01/16/25 20:29 01/13/25 00:32 50 MG DIAGNOSTICS / RADIOLOGY: [ ] Discharged dx's: acute pancreatitis POA resolved Chronic Cholelithiasis, POA s/p Lap debo POD 1 intractable abd pain POA resolved morbid obesity POA weight management: Five dilated and exercise. Mild hepatic steatosis. Avoid greasy foods saturated fats. PLAN: [ ] Admit: Medical-surgical floor condition: Guarded Status: Full code IVF: Heplock Procedure: Lap Debo POST Day 1, will follow surgeon post operative recommendations encouraged ambulation and usage of [facility] GI general surgeon Antibiotics: Zosyn 3.3 seven 5 g every 8 hours Labs cbc, cmp, mag+ Replace electrolytes as needed as per protocol to keep potassium above 4.0 magnesium 2.0. Pain management: Morphine 2 mg IV every 4 hours for pain Supportive measures: DVT ppx, GI ppx all questions answered Supervising MD: Dr. Huynh c/d ATTESTATION BY PHYSICIAN I have seen and examined the patient. I reviewed the documentation, medical decision making, and treatment plan as noted by the mid-level provider above. I agree with the findings and plan of care. WALLY HUYNH MD, [facility] Jan 14, 2025 08:05
--- NOTE | 2025-01-14 08:08 | PN ---
[facility] PROGRESS NOTE Date of Service: Jan 14, 2025 Time of Service: 08:05 SUBJECTIVE: [ ] admission date: 01/09/25 PCP: self referral CC: abd pain This is a 24-year-old female presents in ED with chief complaints of abdominal pain. Onset started to 30 this morning location epigastric, duration constant radiates to mid back to right upper shoulder. Character is described as pressure and burning. Pain on arrival was 10/10. Alleviating factors none, symptoms are aggravated with p.o. intake. Associated symptoms nausea and vomiting. ER workup was consistent with acute pancreatitis. Patient was recently hospitalized a month ago for similar symptoms patient has a history of chronic Cholelithiasis. HIDA scan was done on that admission no acute chol ecystitis noted on that admission she is now here with acute pancreatitis. We will get a MRCP possible ERCP GI has been consulted. 01/10/25 patient was seen earlier patient is lying in bed patient has dull pain she remains NPO waiting for further recommendations from GI and general surgeon. 01/11/25 patient is scheduled for a lap debo today. We will follow-up postop encouraged patient early ambulation and deep breathing exercise post surgery. 01/12/25 Late entry The patient was not discharged: unable to pass gas she is belching ,s/p Lap Debo day 1 no fever no chill 01/13/25 date of services The patient POD 2 s/p lap debo: KUB will be ordered she continue to unable to pass flatus she reports ambulating throughout the day yesterday. no fevers or chill, no n/v REVIEW OF SYSTEMS A 12 point ROS obtained all relevant positive documented otherwise ROS negative PHYSICAL EXAM GENERAL APPEARANCE: The patient is awake, alert, and oriented, in no acute ca rdiopulmonary distress. NEUROLOGICAL: Cranial nerves II-XII grossly intact. Motor is 5/5 in bilateral upper and lower extremities proximal to distal. No sensory deficits. HEENT: Face is symmetric. Pupils are equal and reactive. Extraocular movements are intact. NECK: Supple. No JVD. No thyromegaly. No submental, submandibular, pre- /postauricular, occipital or supraclavicular lymphadenopathy. CHEST: Normal chest expansion. No Telemetry. LUNGS: Absence of any rales, rhonchi or any wheezing. CARDIOVASCULAR: Regular. S1 and S2 normal. No appreciable rubs, murmurs or gallops. ABDOMEN: Soft, nontender, and nondistended. There is no rebound, voluntary guarding, or rigidity. : Deferred. No Perla. EXTREMITIES: Non-edematous and not cyanotic. No clubbing. Good capillary refill. SKIN: No skin breakdown. Vital Signs (last 8hr) Date Time Temp Pulse Resp B/P (MAP) Pulse Ox O2 Delivery O2 Flow Rate FiO2 01/14/25 07:45 98.1 81 18 129/69 98 Room Air 21 01/14/25 04:00 98.1 79 18 131/64 95 Room Air LABS: Current Medications Medications (Trade) Dose Ordered Sig/Anaya Route PRN Reason Start Time Stop Time Status Last Admin Dose Admin Acetaminophen (TYLenol 325MG TAB) 650 mg Q4H PRN PO TEMPERATURE GREATER THAN 101.5 01/09/25 07:00 02/08/25 06:59 Docusate Sodium (COLace 100MG CAP) 100 mg TID PO 01/13/25 21:00 02/12/25 12:29 01/13/25 20:58 100 MG Docusate Sodium (COLace 100MG CAP) 100 mg TID PRN PO CONSTIPATION 01/13/25 12:30 01/13/25 18:27 DC 01/13/25 13:15 100 MG Famotidine (Pepcid 20mg Vial) 20 mg BID IV 01/09/25 09:00 02/08/25 08:59 01/13/25 20:58 20 MG Fentanyl Citrate (FENTanyl CITRate PF 50 MCG/ 1 ML 2ML VIAL) 25 mcg Q5MIN PRN IVP PAIN LEVEL 7 TO 10 01/11/25 20:30 01/11/25 21:42 DC Ketorolac Tromethamine (toRADol) 30 mg AD PRN IV PAIN LEVEL 1 TO 3 01/11/25 20:30 01/11/25 21:42 DC Lactated Ringer's 1,000 ml @ 75 mls/hr [id number] IV 01/09/25 07:00 02/08/25 06:59 01/13/25 09:08 75 MLS/HR Lidocaine (Lidocaine Patch 4%) 1 each DAILY TP 01/12/25 09:00 02/11/25 08:59 01/13/25 09:01 1 EACH Magnesium Sulfate 50 ml @ 0 mls/hr PROTOCOL PRN IV low mag level 01/09/25 07:00 02/08/25 06:59 01/12/25 08:52 20 MLS/HR Metoclopramide HCl (regLAN 10MG IV) 10 mg AD PRN IVP NAUSEA/VOMITING 01/11/25 20:30 01/11/25 21:42 DC Morphine Sulfate (morPHINE 2MG SYG) 2 mg AD PRN IVP PAIN LEVEL 4 TO 6 01/11/25 20:30 01/11/25 21:42 DC Morphine Sulfate (morPHINE 2MG SYG) 2 mg Q4H PRN IVP SEVERE PAIN (7-10) 01/09/25 07:00 01/16/25 06:59 Naloxone HCl (NARcan 0.4mg/1 mL) 0.1 mg AD PRN IVP RESPIRATORY SYMPTOMS 01/11/25 20:30 01/11/25 21:42 DC Ondansetron HCl (zoFRAN 4MG INJ) 4 mg AD PRN IVP NAUSEA/VOMITING 01/11/25 20:30 01/11/25 21:42 DC Piperacillin Sod/ Tazobactam Sod (Zosyn 3.375gm+NS 50ml) 3.375 gm Q8H IVPB 01/09/25 07:00 01/09/25 20:21 DC 01/09/25 09:24 3.375 GM Piperacillin Sod/ Tazobactam Sod (Zosyn 3.375gm+NS 50ml) 3.375 gm Q8H IVPB 01/09/25 20:30 01/19/25 20:29 01/14/25 05:31 3.375 GM Potassium Chloride 100 ml @ 50 mls/hr AD PRN IV POTASSIUM PROTOCOL 01/09/25 07:00 02/08/25 06:59 Promethazine HCl (Phenergan) 25 mg AD PRN IM NAUSEA/VOMITING 01/11/25 20:30 01/11/25 21:42 DC Simethicone (Mylicon) 80 mg QID PO 01/11/25 21:00 02/10/25 20:59 01/13/25 20:58 80 MG Sodium Chloride (NS 50ml) 50 ml AD IV 01/09/25 07:00 01/09/25 07:05 DC Tramadol HCl (UltRAM) 50 mg Q4H PRN PO MODERATE PAIN (4-6) 01/11/25 20:30 01/16/25 20:29 01/13/25 00:32 50 MG DIAGNOSTICS / RADIOLOGY: [ ] Assessment acute pancreatitis POA resolved Chronic Cholelithiasis, POA s/p Lap debo POD 1 intractable abd pain POA resolved morbid obesity POA weight management: Five dilated and exercise. Mild hepatic steatosis. Avoid greasy foods saturated fats. PLAN: [ ] Admit: Medical-surgical floor condition: Guarded Status: Full code IVF: Heplock Procedure: Lap Debo POST Day 2, will follow surgeon post operative recommendations encouraged ambulation and usage of [facility] GI general surgeon Antibiotics: Zosyn 3.3 seven 5 g every 8 hours Labs cbc, cmp, mag+ Replace electrolytes as needed as per protocol to keep potassium above 4.0 magnesium 2.0. imaging KUB Pain management: Morphine 2 mg IV every 4 hours for pain Supportive measures: DVT ppx, GI ppx all questions answered Supervising MD: c/d ATTESTATION BY PHYSICIAN I have seen and examined the patient. I reviewed the documentation, medical decision making, and treatment plan as noted by the mid-level provider above. I agree with the findings and plan of care. Ignacio Kuhn IV, MD, [facility] Jan 14, 2025 08:08
--- NOTE | 2025-01-14 11:26 | PN ---
STATUS POST CHOLECYSTECTOMY. TOLERATING HER CLEAR LIQUID DIET. PASSING GAS. AMBULATING WELL. DOING MUCH BETTER. NO ABDOMINAL PAIN. STILL NO BOWEL MOVEMENT INCISIONS CLEAN DRY AND INTACT FROM SURGICAL STANDPOINT GIVE HER A SOFT GI DIET FOR LUNCH AND IF TOLERATED OKAY TO DISCHARGE HOME. STOOL SOFTENERS OR LAXATIVES NEEDED FOR BOWEL MOVEMENT. FOLLOW UP IN THE OUTPATIENT SETTING WITH DR. LEE. Vitals/Labs Vital Signs Date Time Temp Pulse Resp B/P (MAP) Pulse Ox O2 Delivery O2 Flow Rate FiO2 01/14/25 07:45 98.1 81 18 129/69 98 Room Air 21 01/13/25 20:00 0 Medications Current Medications Lactated Ringer's 1,000 ml @ 0 mls/hr ONCE ONCE IV Last administered on 01/09/25at 05:28; Start 01/09/25 at 05:30; Stop 01/09/25 at 05:31; Status DC Acetaminophen 650 mg ONCE ONCE PO Last administered on 01/09/25at 05:29; Start 01/09/25 at 05:30; Stop 01/09/25 at 05:31; Status DC Ketorolac Tromethamine 15 mg ONCE ONCE IV Last administered on 01/09/25at 05:43; Start 01/09/25 at 05:30; Stop 01/09/25 at 05:31; Status DC Morphine Sulfate 2 mg ONCE ONCE IVP Last administered on 01/09/25at 05:43; Start 01/09/25 at 05:30; Stop 01/09/25 at 05:31; Status DC Ondansetron HCl 4 mg ONCE ONCE IVP Last administered on 01/09/25at 05:28; Start 01/09/25 at 05:30; Stop 01/09/25 at 05:31; Status DC Al Hydroxide/Mg Hydroxide 30 ml ONCE ONCE PO Last administered on 01/09/25at 05:28; Start 01/09/25 at 05:30; Stop 01/09/25 at 05:31; Status DC Dicyclomine HCl 10 mg ONCE ONCE PO Last administered on 01/09/25at 05:28; Start 01/09/25 at 05:30; Stop 01/09/25 at 05:31; Status DC Lactated Ringer's 1,000 ml @ 75 mls/hr [id number] IV Last administered on 01/13/25at 09:08; Start 01/09/25 at 07:00; Stop 02/08/25 at 06:59 Acetaminophen 650 mg Q4H PRN PO; Start 01/09/25 at 07:00; Stop 02/08/25 at 06:59 Morphine Sulfate 2 mg Q4H PRN IVP; Start 01/09/25 at 07:00; Stop 01/14/25 at 09:59; Status DC Famotidine 20 mg BID IV Last administered on 01/14/25at 09:37; Start 01/09/25 at 09:00; Stop 02/08/25 at 08:59 Piperacillin Sod/ Tazobactam Sod 3.375 gm Q8H IVPB Last administered on 01/09/25at 09:24; Start 01/09/25 at 07:00; Stop 01/09/25 at 20:21; Status DC Sodium Chloride 50 ml AD IV; Start 01/09/25 at 07:00; Stop 01/09/25 at 07:05; Status DC Magnesium Sulfate 50 ml @ 0 mls/hr PROTOCOL PRN IV Last administered on 01/12/25at 08:52; Start 01/09/25 at 07:00; Stop 02/08/25 at 06:59 Potassium Chloride 100 ml @ 50 mls/hr AD PRN IV; Start 01/09/25 at 07:00; Stop 02/08/25 at 06:59 Piperacillin Sod/ Tazobactam Sod 3.375 gm Q8H IVPB Last administered on 01/14/25at 05:31; Start 01/09/25 at 20:30; Stop 01/19/25 at 20:29 Potassium Chloride 100 ml @ 50 mls/hr ONCE ONCE IV Last administered on 01/11/25at 12:18; Start 01/11/25 at 10:00; Stop 01/11/25 at 11:59; Status DC Indocyanine Green 25 mg STK-MED ONCE IJ; Start 01/11/25 at 16:03; Stop 01/11/25 at 16:02; Status DC Iohexol 50 ml STK-MED ONCE IV; Start 01/11/25 at 17:09; Stop 01/11/25 at 17:09; Status DC Bupivacaine HCl/ Epinephrine Bitart 10 ml STK-MED ONCE IJ; Start 01/11/25 at 17:10; Stop 01/11/25 at 17:10; Status DC Propofol 200 mg STK-MED ONCE IV; Start 01/11/25 at 17:23; Stop 01/11/25 at 17:23; Status DC Midazolam HCl 2 mg STK-MED ONCE .ROUTE; Start 01/11/25 at 17:23; Stop 01/11/25 at 17:23; Status DC Rocuronium Oakley 50 mg STK-MED ONCE .ROUTE; Start 01/11/25 at 17:23; Stop 01/11/25 at 17:23; Status DC Fentanyl Citrate 100 mcg STK-MED ONCE .ROUTE; Start 01/11/25 at 17:23; Stop 1 at 17:23; Status DC Ropivacaine 150 mg STK-MED ONCE .ROUTE; Start 01/11/25 at 17:25; Stop 01/11/25 at 17:25; Status DC Ketamine HCl 50 mg STK-MED ONCE .ROUTE; Start 01/11/25 at 17:34; Stop 01/11/25 at 17:34; Status DC Ondansetron HCl 4 mg STK-MED ONCE .ROUTE; Start 01/11/25 at 17:57; Stop 01/11/25 at 17:57; Status DC Rocuronium [place] 50 mg STK-MED ONCE .ROUTE; Start 01/11/25 at 18:16; Stop 01/11/25 at 18:16; Status DC Fentanyl Citrate 250 mcg STK-MED ONCE IV; Start 01/11/25 at 19:17; Stop 01/11/25 at 19:17; Status DC Indocyanine Green 25 mg STK-MED ONCE IJ Last administered on 01/11/25at 17:30; Start 01/11/25 at 17:30; Stop 01/11/25 at 19:42; Status DC Tranexamic Acid 1,000 mg STK-MED ONCE .ROUTE; Start 01/11/25 at 19:55; Stop 01/11/25 at 19:55; Status DC Simethicone 80 mg QID PO Last administered on 01/14/25at 09:37; Start 01/11/25 at 21:00; Stop 02/10/25 at 20:59 Tramadol HCl 50 mg Q4H PRN PO Last administered on 01/13/25at 00:32; Start 01/11/25 at 20:30; Stop 01/16/25 at 20:29 Lidocaine 1 each DAILY TP Last administered on 01/14/25at 09:38; Start 01/12/25 at 09:00; Stop 02/11/25 at 08:59 Ondansetron HCl 4 mg AD PRN IVP; Start 01/11/25 at 20:30; Stop 01/11/25 at 21:42; Status DC Metoclopramide HCl 10 mg AD PRN IVP; Start 01/11/25 at 20:30; Stop 01/11/25 at 21:42; Status DC Promethazine HCl 25 mg AD PRN IM; Start 01/11/25 at 20:30; Stop 01/11/25 at 21:42; Status DC Ketorolac Tromethamine 30 mg AD PRN IV; Start 01/11/25 at 20:30; Stop 01/11/25 at 21:42; Status DC Morphine Sulfate 2 mg AD PRN IVP; Start 01/11/25 at 20:30; Stop 01/11/25 at 21:42; Status DC Fentanyl Citrate 25 mcg Q5MIN PRN IVP; Start 01/11/25 at 20:30; Stop 01/11/25 at 21:42; Status DC Naloxone HCl 0.1 mg AD PRN IVP; Start 01/11/25 at 20:30; Stop 01/11/25 at 21:42; Status DC Fentanyl Citrate 100 mcg STK-MED ONCE .ROUTE; Start 01/11/25 at 20:13; Stop 01/11/25 at 20:13; Status DC Morphine Sulfate 4 mg STK-MED ONCE .ROUTE Last administered on 01/11/25at 21:09; Start 01/11/25 at 20:55; Stop 01/11/25 at 20:55; Status DC Acetaminophen 100 ml @ As Directed STK-MED ONCE .ROUTE Last administered on 01/11/25at 21:06; Start 01/11/25 at 20:56; Stop 01/11/25 at 20:56; Status DC Docusate Sodium 100 mg TID PRN PO Last administered on 01/13/25at 13:15; Start 01/13/25 at 12:30; Stop 01/13/25 at 18:27; Status DC Diphenhydramine HCl 25 mg ONCE ONCE PO; Start 01/13/25 at 18:00; Stop 01/13/25 at 18:47; Status DC Diphenhydramine HCl 25 mg ONCE ONCE PO Last administered on 01/13/25at 18:19; Start 01/13/25 at 18:30; Stop 01/13/25 at 18:31; Status DC Docusate Sodium 100 mg TID PO Last administered on 01/14/25at 09:37; Start 01/13/25 at 21:00; Stop 02/12/25 at 12:29 BAILEY PIERRE MD Jan 14, 2025 11:26
[2025-01-14 11:41] VITALS: BP 103/65; PULSE 83; RESP 19; TEMP 98.1
--- NOTE | 2025-01-14 12:36 | DS ---
Discharge Summary Hospital Course Summary: admission date: 01/09/25 PCP: self referral CC: abd pain This is a 24-year-old female presents in ED with chief complaints of abdominal pain. Onset started to 30 this morning location epigastric, duration constant radiates to mid back to right upper shoulder. Character is described as pressure and burning. Pain on arrival was 10/10. Alleviating factors none, symptoms are aggravated with p.o. intake. Associated symptoms nausea and vomiting. ER workup was consistent with acute pancreatitis. Patient was recently hospitalized a month ago for similar symptoms patient has a history of chronic Cholelithiasis. HIDA scan was done on that admission no acute cholecystitis noted on that admission she is now here with acute pancreatitis. We will get a MRCP possible ERCP GI has been consulted. 01/10/25 patient was seen earlier patient is lying in bed patient has dull pain she remains NPO waiting for further recommendations from GI and general surgeon. 01/11/25 patient is scheduled for a lap qiana today. We will follow-up postop encouraged patient early ambulation and deep breathing exercise post surgery. 01/12/25 was seen earlier patient is clinically and hemodynamically stable for discharge status post lap qiana postop day one. Tolerating diet ++ flautus encourage patient to continue ambulating at home continue with pain management with [id number] Tylenol. Patient will be discharged on oral antibiotics as directed. All questions and concerns addressed advised patient no heavy lifting greater than 10 lb for four weeks and to keep incisions clean and dry wash with soap and water, diet GI soft avoid greasy foods.01/12/25 Late entry The patient was not discharged: unable to pass gas she is belching ,s/p Lap Qiana day 1 no fever no chill 01/13/25 date of services The patient POD 2 s/p lap qiana: KUB will be ordered she continue to unable to pass flatus she reports ambulating throughout the day yesterday. no fevers or chill, no n/v 01/14 patient is clinically and hemodynamically stable for discharge. Recuperating well no nausea no vomiting passing gas having bowel movements. Patient will follow-up with Dr. Valadez two weeks postoperative visit encouraged patient to continue ambulating and deep breathing exercise. Continue GI soft avoid greasy foods keep incisions clean and dry wash with soap and water no heavy lifting greater than 10 lb. Until seen by surgeon. Denied chest pain or shortness for breath Chief Of Safety And Protection(s): REASON: Adominal Pain ORDERING PHYSICIAN: MARÍA ELENA HAMLIN DO PROCEDURE: [id number] - US ABDOMINAL RUQ\LTD EXAM: US Abdomen, Right Upper Quadrant. CLINICAL HISTORY: Adominal Pain TECHNIQUE: Right upper quadrant sonography performed with image documentation. COMPARISON: [place] HIDA scan dated 12/10/2024. CT abdomen and pelvis dated 12/08/2024. FINDINGS: LIVER: Within normal limits in size (15.2 cm) and shows raised echogenicity. No mass. GALLBLADDER: The gallbladder appears normal. No gallbladder wall thickening (0.3 cm) seen. Mobile calculi seen. COMMON BILE DUCT: Within normal limits in size (0.4 cm). PANCREAS: The visualized portion of the pancreas appears within normal limits. RIGHT KIDNEY: Unremarkable (10.6 x 4.4 x 4.1 cm). Normal renal contours. No renal mass or calculus. No hydronephrosis. IMPRESSION: Cholelithiasis. No evidence of cholecystitis. Hepatic steatosis. REASON: bilary stontes ORDERING PHYSICIAN: JAS ORTEGA PROCEDURE: MRCP WO - MRCP(ABDWO)CHOLANGIOPANCREATOG ADDENDUM REPORT ADDENDUM: Results were shared by telephone at 00:37 am on 01-10-25 and acknowledged by the Nurse Reagan Guillermo /[place] EXAM: MR Cholangiopancreatography (MRCP). CLINICAL HISTORY: Cholelithiasis with prior sonographic and CT evidence of gallstones and hepatic steatosis. Evaluation for biliary tree anatomy and complications. TECHNIQUE: Multiplanar and multisequence MRCP images were obtained without intravenous contrast, utilizing heavily T2-weighted sequences optimized for biliary and pancreatic ductal evaluation. COMPARISON: Ultrasound abdomen dated 01/09/2025. CT abdomen (non-contrast) dated 01/07/2025. FINDINGS: LIVER: Normal size and contour. Mild background hepatic steatosis. No focal hepatic lesion identified. GALLBLADDER AND BILIARY SYSTEM: Multiple small hypointense filling defects measuring 3???4 mm within the gallbladder lumen, consistent with multiple gallstones. No pericholecystic fluid or wall edema to suggest cholecystitis. Gallbladder neck and cystic duct are patent. Common bile duct (CBD) measures 0.4 cm in diameter with smooth distal tapering at the ampullary end ??? within normal limits. No intraductal filling defects or dilatation. BILIARY ANATOMY VARIANT: Right posterior hepatic duct drains into the common hepatic duct rather than joining the right anterior duct ??? classified as Williamson Type A3 (right posterior hepatic duct draining directly into the common hepatic duct), a recognized normal variant. PANCREAS: Normal morphology and signal. No ductal dilatation, mass, or peripancreatic fluid. SPLEEN: Normal in size and configuration. ADRENALS: Normal bilaterally. No nodules or thickening. KIDNEYS: Normal size and contour. No calculi, hydronephrosis, or solid renal mass. RETROPERITONEUM: No lymphadenopathy or mass. AORTA: Normal caliber and contour. No aneurysm or stenosis. BOWEL AND MESENTERY: Normal appearance. No wall thickening, obstruction, or mesenteric inflammatory change. ABDOMINAL WALL AND BONES: Unremarkable. No hernia or osseous abnormality identified. IMPRESSION: * Cholelithiasis with multiple small gallstones (3???4 mm) without evidence of cholecystitis. * Common bile duct of normal caliber (0.4 cm) with smooth distal tapering and no choledocholithiasis. * Variant biliary anatomy ??? right posterior hepatic duct draining into the common hepatic duct (Williamson Type A3 configuration). * Mild hepatic steatosis. * No pancreatic, splenic, renal, or retroperitoneal abnormality. RADIOLOGIC???CLINICAL CORRELATION: The MRCP demonstrates uncomplicated cholelithiasis with preserved biliary drainage and a normal-caliber ductal system. The identified Williamson Type A3 biliary variant holds surgical relevance, particularly for cholecystectomy or biliary interventions, as inadvertent injury to the right posterior hepatic duct can occur if unrecognized. No imaging evidence of acute inflammation or obstructive pathology. Recommend standard surgical planning and intraoperative cholangiographic confirmation if cholecystectomy is pursued. Assessment/Plan: Discharged dx's: acute pancreatitis POA resolved Chronic Cholelithiasis, POA s/p Lap qiana POD 1 intractable abd pain POA resolved morbid obesity POA weight management: Five dilated and exercise. Mild hepatic steatosis. Avoid greasy foods saturated fats. 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 TEACHING: Avoid heavy lifting greater than 10 lb keep incisions clean and dry signs and symptoms incision infection. Emergency instructions: The patient was instructed to present to the nearest Emergency Department or call 911 should their symptoms return or worsen. New Medications: Amoxicillin/Potassium Clav (Amox Tr-K Clv 875-125 mg Tab) 875 Mg-125 Mg Tablet 1 TAB PO BID for 7 Days, #14 TAB 0 Refills Time spent arranging discharge: 31-60 minutes ATTESTATION BY PHYSICIAN I have seen and examined the patient. I reviewed the documentation, medical decision making, and treatment plan as noted by the mid-level provider above. I agree with the findings and plan of care. Ignacio Kuhn IV, MD, [facility] Jan 14, 2025 12:36
== END 2025-01-14 15:15 | disposition home or self-care (01) | DRG 418 ==
LOC: EDH 04:34 → EDHIP 04:35 → 3BH 11:14
PROVIDERS: ADMIT Internal Medicine; ATTEND Internal Medicine
PROC: 8E0W4CZ Robotic Assisted Procedure of Trunk Region, Percutaneous Endoscopic Approach (ICD-10-PCS; 2025-01-11)
PROC: 4A1BXSH Monitoring of Gastrointestinal Vascular Perfusion using Indocyanine Green Dye, External Approach (ICD-10-PCS; 2025-01-11)
PROC: BF101ZZ Fluoroscopy of Bile Ducts using Low Osmolar Contrast (ICD-10-PCS; 2025-01-11)
PROC: 0FT44ZZ Resection of Gallbladder, Percutaneous Endoscopic Approach (ICD-10-PCS; principal; 2025-01-11 17:00)
DX: K85.10 Biliary acute pancreatitis without necrosis or infection (principal); Z68.41 Body mass index [BMI] 40.0-44.9, adult; K80.20 Calculus of gallbladder without cholecystitis without obstruction; E66.01 Morbid (severe) obesity due to excess calories; K76.0 Fatty (change of) liver, not elsewhere classified
CPT/HCPCS: 36415; 74018; 74181; 76705; 80048; 80053; 80076; 81001; 81025; 82150; 83690; 83735; 84478; 85025; 85027; 96361; 96374; 99285; A4606; G0378; J1885; J2250; J2270; J2405; J2543; J2704; J2795; J3010; J3475; J3480; J3490; J7120; Q0163; Q9967; A4215; A4216; A4340; A4930; J1308

== ENCOUNTER 2025-01-27 13:04 | Emergency (ER) | payer SELFPAY ==
[~2025-01-27] VITALS: Ht 149.9 cm; Wt 99.8 kg
[~2025-01-27 13:04] MED LIST changes: +AMOX1TAB16 PO; -CEPH500C2 PO; -FAMO-136 PO; -KETO10TA2 PO; -ONDA-243 PO
[2025-01-27 13:10] VITALS: BP 136/81; PULSE 92; RESP 18; TEMP 98.8
--- NOTE | 2025-01-27 13:24 | ERN ---
General Chief Complaint: Other Problems Stated Complaint: INCISION PAIN Time Seen by MD: 13:12 History of Present Illness Initial Comments 25-year-old female history of cholecystitis with a cholecystectomy two weeks ago here for evaluation of abdominal wound check. Family members were concerned as they have not been able to see the general surgeon and wanted to make sure that the wound was doing okay. Patient states that she has mild soreness to the left lower quadrant where one of her eugene is. She has been taking Advil with relief of symptoms however since they were unable to see a general surgeon to insurance purposes they wanted a 2nd opinion to ensure everything was okay. No fever no cough no shortness a breath no nausea vomiting diarrhea. No abdominal pain. Allergies: Coded Allergies: No Known Drug Allergies (Unverified Allergy, Unknown, 09/10/24) Home Meds Active Scripts Amoxicillin/Potassium Clav (Amox Tr-K Clv 875-125 mg Tab) 875 Mg-125 Mg Tablet, 1 TAB PO BID for 7 Days, #14 TAB 0 Refills Prov:JAS ORTEGA [facility] 01/12/25 Past Medical History Past Medical History: Other Medical History Other: CHOLECYSTITS Past Surgical History: None Family History Family History: Negative Social History Social History: Negative Skin: (+) change in color Physical Exam General Appearance: (+) no apparent distress, (+) obese Orientation: (+) alert, (+) oriented x 3 Eye: bilateral eye normal inspection, bilateral eye PERRL, bilateral eye EOMI Ear, Nose, Throat: (+) hearing grossly normal, (+) normal ENT inspection, (+) moist mucous membraine, (+) normal pharynx Neck: (+) normal inspection Respiratory: (+) chest non-tender, (+) lungs clear Heart: (+) regular; (-) murmur Gastrointestinal: (+) soft, (+) non-tender, (+) other documentation (For areas of eugene. Right lower quadrants of her quadrant with three eugene. To central areas of four eugene. One area while four eugene in the area just inf erior to the epigastric region. Minimal erythema but no fluctuance or drainage coming from either areas. Abdomen is soft nontender) MDM 25-year-old female here for wound check. Reassurance was given. No active signs of infection. Advised patient to follow up with General surgery and PCP. MDM: RATIONALE: TESTS CONSIDERED AND ORDERED SECONDARY TO SHARED DECISION MAKING INCLUDE: PREVIOUS OUTSIDE RECORDS REVIEWED: OLD ER VISITS. RISK OF COMPLICATION AND/OR MORBIDITY OR MORTALITY OF PATIENT MANAGEMENT: NONE MEDICATIONS-PER MEDICATION RECONCILIATION NEED FOR HOSPITALIZATION: PATIENT DOES NOT MEET CRITERIA FOR HOSPITALIZATION. NEED FOR EMERGENCY MAJOR/MINOR SURGERY: NO THERE ARE NO SOCIAL CONCERNS WITH THIS PATIENT. PRESCRIPTION DRUG MANAGEMENT PRESCRIPTIONS WILL INCLUDE SYMPTOMATIC CARE PATIENT'S PRIOR EXTERNAL MEDICAL RECORDS FROM OTHER ER VISITS WERE REVIEWED BY ME INDICATED. PRIOR TESTING AND RESULTS FROM PREVIOUS VISITS WERE REVIEWED. PRIOR TESTS WERE TAKEN INTO ACCOUNT WITH MEDICAL DECISION MAKING AND RESOURCE UTILIZATION, INDEPENDENT HISTORIAN/HISTORIANS WERE USED TO OBTAIN COMPLETE MEDICAL HISTORY. I INDEPENDENTLY INTERPRETED THE TEST THAT WERE PERFORMED, RESULTS WERE REVIEWED BY ME AND CONSIDERED FINDINGS ON RADIOLOGY IF ORDERED. MEDICAL MANAGEMENT AND EXAMINATION INTERPRETATION DISCUSSIONS WERE HAD BY ME WITH OTHER QUALIFIED HEALTHCARE PROFESSIONALS INDICATED FOR THE PATIENT'S CARE. ED Course Vital Signs Date Time Temp Pulse Resp B/P (MAP) Pulse Ox O2 Delivery O2 Flow Rate FiO2 01/27/25 13:10 98.8 92 18 136/81 99 DX & DISP Disposition: Discharge Departure Impression: Primary Impression: Post-op pain Additional Impression: Visit for wound check Condition: Stable Referrals: SELF,REFERRAL (PCP) KAYDEN MCDANIEL MD Jan 27, 2025 13:24
--- NOTE | 2025-01-27 14:34 | NUR ---
PATIENT LEFT THE DEPARTMENT AFTER BEING SEEN BY ER MD. 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 ER MD AND ER WARP TRUCKER INFORMED.
== END 2025-01-27 14:36 | disposition home or self-care (01) ==
LOC: EDH 13:04
DX: G89.18 Other acute postprocedural pain (principal); R10.32 Left lower quadrant pain; Z90.49 Acquired absence of other specified parts of digestive tract; Z48.01 Encounter for change or removal of surgical wound dressing
CPT/HCPCS: 99282